=== PATIENT | female | born 1945 | race Caucasian/White ===

== ENCOUNTER 2021-11-18 15:06 | Outpatient (CLI) | payer BC, SELFPAY ==
[2021-11-18 17:49] LABS: Albumin* 4.2 g/dL (3.3-5.0)
[2021-11-18 17:50] LABS: Chloride* 100 mmol/L (96-114); Sodium* 141 mmol/L (135-149)
[2021-11-18 17:52] LABS: Bilirubin Total* 0.6 mg/dL (0.1-1.5); Carbon Dioxide* 33 mmol/L (20-32); Cholesterol* 223 mg/dL (90-199); Creatinine* 0.6 mg/dL (0.5-1.5); Estimated Glomerular Filt Rate 95 ml/min
[2021-11-18 17:53] LABS: Alanine Aminotransferase* 21 U/L (4-35); Alkaline Phosphatase* 96 U/L (40-150); Aspartate Amino Transferase* 35 U/L (12-35); Blood Urea Nitrogen* 11 mg/dL (7-30); Calcium* 9.9 mg/dL (8.4-10.6); Glucose* 118 mg/dL (60-115); HDL Cholesterol* 67 mg/dL (>=50); LDL Cholesterol Calculated 137 mg/dL (<100); Total Protein* 8.1 g/dL (6.0-8.3); Triglycerides* 94 mg/dL (40-149)
== END 2021-11-18 15:07 | disposition home or self-care (01) ==
LOC: NFLDREF 15:07
PROVIDERS: PCP Family Medicine; Visit Provider Family Medicine
DX: Z00.00 Encounter for general adult medical examination without abnormal findings (principal); F10.20 Alcohol dependence, uncomplicated; I10 Essential (primary) hypertension; Z13.6 Encounter for screening for cardiovascular disorders
CPT/HCPCS: 80053; 80061

== ENCOUNTER 2022-01-08 11:39 | Outpatient (CLI) | payer BC, SELFPAY ==
[2022-01-08] MEDS: TETRACAINE 0.5% OPHTH 1 DROP EYE-LEFT ×3 (11:52→12:35)
[2022-01-08] MEDS: BRIMONIDINE TARTRATE 0.2% OPHTH 1 DROP EYE-LEFT ×2 (11:53→12:42)
[2022-01-08 11:55] VITALS: BP 122/67; PULSE 87; RESP 20; O2SAT 97
--- NOTE | 2022-01-08 12:46 | PM.PROC ---
Procedure Note Date Seen: 01/08/22 Will [facility] bill your pro fee for this procedure?: Yes Procedure Description: SURGEON: Aimee Lott MD PREOPERATIVE DIAGNOSIS: Posterior capsular opacity, left eye POSTOPERATIVE DIAGNOSIS: Posterior capsular opacity, left eye PROCEDURE: YAG laser capsulotomy, left eye ANESTHESIA: Topical. ESTIMATED BLOOD LOSS: None PATHOLOGY SPECIMEN: None COMPLICATIONS: None INDICATIONS: See consult note for details. The risks, benefits and alternatives of the procedure were explained to the patient, who elected to proceed and signed informed consent to do so. PROCEDURE: The patient was brought to the pre-holding area where the left eye was identified as the operative eye. I placed my initials above this eye. The patient received 2 sets of 1 drop of 0.5% tetracaine and 1 drop of 1% tropicamide. They also received 1 drop of 0.2% brimonidine. They received 1 drop of 0.5% tetracaine immediately prior to bringing them back for the procedure. The patient was then brought to the procedure room where the left eye was again identified as the operative eye. A YAG Leoncio capsulotomy lens was placed on the eye. The laser was administered using a total number of 13 shots with an energy of 2.4 mJ per shot for a total energy of 31 mJ. The patient tolerated the procedure well. DISPOSITION: The patient was taken back to the pre-holding area and given 1 drop of 0.2% brimonidine in the left eye. They were discharged to home in stable condition. The patient was instructed to call me or go to the emergency department with any sudden change, including dramatic loss of vision, severe pain in the eye or eyebrow region, nausea, or vomiting. The patient was instructed to use the 0.2% brimonidine 1 drop 2 times a day in the left eye for 1 week. The patient will follow up in the clinic in 1-2 weeks Surgeon: Aimee Lott MD
== END 2022-01-08 12:43 | disposition home or self-care (01) ==
LOC: EYE PRC 11:39
PROVIDERS: PCP Family Medicine; Visit Provider Ophthalmology
DX: H26.9 Unspecified cataract (principal)
CPT/HCPCS: 66821; A9270

== ENCOUNTER 2022-01-22 09:00 | Day surgery (SDC) | payer BC, SELFPAY ==
[2022-01-22] MEDS: TETRACAINE 0.5% OPHTH 1 DROP EYE-RIGHT ×2 (09:05→09:10)
[2022-01-22] MEDS: KETOROLAC OPHTH 0.5% 1 DROP EYE-RIGHT ×3 (09:05→09:15)
[2022-01-22 09:11] VITALS: BP 149/71; PULSE 81; RESP 16; TEMP 36.7; O2SAT 98
[2022-01-22 09:18] VITALS: BMI 23.4
[2022-01-22] MEDS: SODIUM CHLORIDE 0.9 % (FLUSH) 10 ML SYRINGE IVF (09:35)
[2022-01-22] MEDS: TETRACAINE 0.5% OPHTH 2 DROP EYE-RIGHT (10:19)
[2022-01-22] MEDS: BALANCED SALT IRRIG SOLN 15 ML EYE-RIGHT (10:23)
--- NOTE | 2022-01-22 10:24 | W.ANESCHARGE ---
Anesthesia Charges Start Date/Time Anesthesia Start Date: 01/22/22 Anesthesia Start Time: 10:16 Stop Date/Time Anesthesia Stop Date: 01/22/22 Anesthesia Stop Time: 10:45 Summary Emergency: No Extremes of Age: Over 72-CPT 91172
--- NOTE | 2022-01-22 10:51 | P.OPTPRC_ITS ---
Procedure Note Date of procedure: 01/22/22 Will [facility] bill your pro fee for this procedure?: Yes Procedure Description: SURGEON: Aimee Lott MD PREOPERATIVE DIAGNOSIS: Nuclear sclerotic cataract, right eye. POSTOPERATIVE DIAGNOSIS: Nuclear sclerotic cataract, right eye. NAME OF OPERATION: Phacoemulsification of cataract with posterior chamber intraocular lens implantation in the right eye. ANESTHESIA: Topical. ESTIMATED BLOOD LOSS: Less than 2 cc. COMPLICATIONS: None. PATHOLOGY SPECIMEN: None. INDICATIONS: See consult note for details. The risks, benefits and alternatives of the procedure were explained to the patient, who elected to proceed and s igned informed consent to do so. PROCEDURE: The patient was brought to the pre-holding area where the right eye was identified as the operative eye. I placed my initials above this eye. The patient received eye drops consisting of 0.5% tetracaine, 1% tropicamide, 10% phenylephrine, and 0.5% ketorolac. The patient was then brought to the operating room where the right eye was again identified as the operative eye. The eye was prepped with Betadine and draped in the usual sterile ophthalmic fashion. A #15 super-sharp blade was used to create a paracentesis site. 1% non-preserved intracameral lidocaine was injected into the anterior chamber. Endocoat was injected into the anterior chamber. A 2.4 mm keratome was used to create a three-plane self-sealing incision 1 mm anterior to the temporal limbus. A cystotome was used to create an anterior capsular leaflet. The Utrata forceps were used to extend this to form a continuous curvilinear capsulorrhexis. Hydrodissection was performed. The cataract was removed with phacoemulsification using the [id number] technique. The irrigation and aspiration tip was used to remove the remaining cortex. Healon was injected into the capsular bag. An SERGIO ZCB00 intraocular lens of 20.5 diopters was injected into the capsular bag. The irrigation and aspiration tip was used to remove the remaining viscoelastic. Balanced salt solution on a cannula was used to hydrate the wound, and the wound was found to be watertight. The pupil was noted to be round. DISPOSITION: The patient was taken to the recovery room and discharged to home in stable condition. The patient was instructed to call me or go to the emergency department with any sudden change, including dramatic loss of vision, severe pain in the eye or eyebrow region, nausea, or vomiting. The patient will follow up in the clinic tomorrow morning. Surgeon: Aimee Lott MD
[2022-01-22 10:57] VITALS: BP 166/76; PULSE 72; RESP 16; TEMP 37.3; O2SAT 97
--- NOTE | 2022-01-22 11:02 | W.ANESCHARGE ---
Anesthesia Charges Start Date/Time Anesthesia Start Date: 01/22/22 Anesthesia Start Time: 10:16 Stop Date/Time Anesthesia Stop Date: 01/22/22 Anesthesia Stop Time: 10:45 Summary Emergency: No Extremes of Age: Over 72-CPT 06610
== END 2022-01-22 11:16 | disposition home or self-care (01) ==
PROVIDERS: PCP Family Medicine; Visit Provider Ophthalmology
PROC: (CPT 66984; principal; 2022-01-22 09:00)
DX: H25.11 Age-related nuclear cataract, right eye (principal)
CPT/HCPCS: 66984; 00142; 99100; A9270; J2250; J3010; V2632

== ENCOUNTER 2022-01-27 14:38 | Outpatient (CLI) | payer BC, SELFPAY ==
--- NOTE | 2022-01-27 15:00 | CRLHL7_ITS ---
For Patients: As a result of the Century Cures Act, medical imaging exams and procedure reports are released immediately into your electronic medical record. You may view this report before your referring provider. If you have questions, please contact your health care provider. CLINICAL HISTORY: left carotid bruit TECHNIQUE: The carotid circulations and the vertebral arteries in the neck were examined with dotson-scale ultrasound, color-flow and Doppler spectral analysis. Degrees of stenosis were determined using SRU 2002 Consensus Panel Criteria. FINDINGS: Sonographic images demonstrate bilateral atherosclerotic plaque formation without suspicious soft tissue mass. There was antegrade blood flow demonstrated within the vertebral arteries and the subclavian arteries demonstrated a normal triphasic waveform. The spectral Doppler tracings of the common carotid, internal and external carotid arteries demonstrate no abnormal turbulence or spectral broadening. There was elevation of peak systolic blood flow which would indicate a hemodynamically-significant stenosis by SRU criteria within the proximal left ICA measuring 155 cm/second and within the mid right ICA measuring 128 cm/second. The ICA/CCA peak systolic velocity ratio measures 1.6 on the right and 3.1 on the left. IMPRESSION: 50-69 percent stenosis of the proximal left ICA. Slightly elevated velocity of the right mid ICA corresponding to a 50-69 percent stenosis, closer to 50 percent stenosis. Dictated by Holger Groves MD @ 01/28/2022 11:28:51 AM (Electronically Signed)
== END 2022-01-27 14:39 | disposition home or self-care (01) ==
PROVIDERS: PCP Family Medicine; Visit Provider Family Medicine
DX: R09.89 Other specified symptoms and signs involving the circulatory and respiratory systems (principal); G45.9 Transient cerebral ischemic attack, unspecified
CPT/HCPCS: 93880

== ENCOUNTER 2022-05-09 18:21 | Outpatient (CLI) | payer BC, SELFPAY | END 2022-05-09 18:22 | disposition home or self-care (01) | LOC: AMB 05-10 03:47 | PROVIDERS: PCP Family Medicine; Visit Provider Emergency Medicine Emergency Medical Services | DX: S29.9XXA Unspecified injury of thorax, initial encounter (principal); W01.190A Fall on same level from slipping, tripping and stumbling with subsequent striking against furniture, initial encounter; Y92.038 Other place in apartment as the place of occurrence of the external cause | CPT/HCPCS: A0425; A0427 ==

== ENCOUNTER 2022-05-09 18:59 | Emergency (ER) | payer BC, SELFPAY ==
[2022-05-09] VITALS (9 sets, daily range): BP systolic 115–136; BP diastolic 62–73; PULSE 86–109; RESP 18; TEMP 36.3; O2SAT 91–95; BMI 24.4
--- NOTE | 2022-05-09 20:05 | CRLHL7_ITS ---
For Patients: As a result of the Cures Act, medical imaging exams and procedure reports are released immediately into your electronic medical record. You may view this report before your referring provider. If you have questions, please contact your health care provider. INDICATION: Injury and pain. TECHNIQUE: Chest and right ribs 3 views. COMPARISON: None. FINDINGS: Cardiovascular and mediastinum: Heart size and vasculature are normal in caliber and appearance. Mediastinum is within normal limits. Possible mild deviation of the mediastinum toward the left. Lungs and pleural spaces: Moderate to large right-sided pneumothorax. Bones and soft tissues: Multiple right lateral rib fractures identified. Significant right chest wall emphysema. IMPRESSION: Moderate to large right-sided pneumothorax. Multiple right sided rib fractures (at least 3 in succession), concerning for flail chest. Significant chest wall emphysema. Findings discussed with Dr. Marcos at 8:45 pm on 05/09/[address] Osborn. Dictated by Hi Osborn MD @ 05/09/2022 8:46:25 PM (Electronically Signed)
--- NOTE | 2022-05-09 20:05 | ED_ITS ---
HPI - Fall General Chief Complaint: Fall/Minor Trauma Stated Complaint: Fall, Rib pain Time Seen by Provider: 05/09/22 19:32 History of Present Illness HPI Narrative: This patient comes in with an injury to her right anterior lower ribs that occurred just prior to arrival. She states that she fell into the edge of a table. She did not hit her head or have loss of consciousness. She does smell of alcohol and takes vodka daily. She does not report any other injury. She does not report shortness of breath and arrives with normal vital signs except for her pulse is slightly increased at 105 beats per minute. Related Data Home Medications Medication Instructions Recorded Confirmed hydrocortisone 0.5 % topical cream 0.5 applic topical PRN 11/18/21 05/08/22 acetaminophen 500 mg tablet 500 mg PO BID PRN 01/20/22 05/08/22 (Tylenol Extra Strength) ketorolac 0.5 % eye drops 1 drp ophthalmic (eye) QID 01/20/22 05/08/22 ofloxacin 0.3 % eye drops 1 drp ophthalmic (eye) QID 01/20/22 05/08/22 prednisolone acetate 1 % eye 1 drp ophthalmic (eye) 01/20/22 05/08/22 drops,suspension amlodipine 2.5 mg tablet 5 mg PO QDAY 01/21/22 05/08/22 Previous Rx's Medication Instructions Recorded atenolol 100 mg tablet 100 mg PO QDAY #90 tabs 11/18/21 cholecalciferol (vitamin D3) 25 25 mcg PO QDAY #90 caps 11/18/21 mcg (1,000 unit) capsule clobetasol 0.05 % topical cream 1 applic topical BID #30 grams 11/18/21 diazepam 5 mg tablet 2.5 mg PO QDAY PRN anxiety #10 tabs 11/18/21 folic acid 1 mg tablet 1 mg PO QDAY #90 tabs 11/18/21 omeprazole 20 mg capsule,delayed 20 mg PO QDAY #90 caps 11/18/21 release psyllium husk 3.4 gram/5.4 gram 1 tbsp PO QDAY #660 grams 11/18/21 oral powder (Metamucil) thiamine HCl (vitamin B1) 100 mg 100 mg PO QDAY #90 tabs 11/18/21 tablet Allergies Allergy/AdvReac Type Severity Reaction Status Date / Time lisinopril Allergy Mild Cough Verified 05/08/22 15:27 Review of Systems Status of ROS: Reports: 10 or more systems reviewed and unremarkable except as noted in History and below Narrative: Constitutional: No fevers, no weight gain or loss. Eyes: No discharge. No vision changes. HENT: No congestion, no sore throat, no ear pain. Cardiovascular: No palpitations. Chest: Distinct pain in the right lateral lower ribs that is reproduced with movement and with deep breathing. Respiratory: No shortness of breath, no wheezes, no cough. Gastrointestinal: No abdominal pain, no vomiting, no diarrhea. Genitourinary: No dysuria, no hematuria. Musculoskeletal: Normal range of motion. Skin: No rashes, no pruritis. Neurological: No dizziness, weakness, sensory change, speech change. Endo/Heme/Allergies: No bruising or bleeding. No polydipsia. Pysch: no suicidality, no anxiety, no insomnia. All other systems reviewed and are negative. [facility] Medical History (Updated 05/09/22 @ 21:52 by Huan Marcos MD) Abdominal pain Alcoholism Anxiety Balance problems Constipation Depression Diverticulitis of intestine Do not resuscitate status GERD (gastroesophageal reflux disease) Hypertension Laceration of finger Left carotid bruit Psoriasis Speech disturbance Tobacco dependence syndrome Surgical History (Updated 05/09/22 @ 22:04 by Aurelia Dinh MD) H/O foot surgery Social History (Updated 10/29/21 @ 16:05 by Sherif Orosco MD) Narrative: SOCIAL HISTORY: Single and retired. She has a daughter and granddaughter in town. She sees them sporadically but kept did distance due to the current COVID-19 pandemic. HABITS: Not sexually active. No regular exercise.She smokes 6 cigarettes per day. Alcohol use is the same as before about 7 shots of vodka per day. This is stable over many years. No recreational drug use. Smoking Status: Current every day smoker What tobacco products do you use: cigarettes Smoking packs per day: 1 Smoking cigarettes per day: 20.0 Do you use any of these nicotine containing products: None Second hand tobacco smoke exposure: No How often do you have a drink containing alcohol: 4 or more times a week Alcohol type: hard liquor How many standard drinks containing alcohol do you have on a typical day: 3 or 4 How often do you have six or more drinks on one occasion: Never AUDIT-C Alcohol total score: 5 Non-prescribed substance use: denies use Caffeine: Yes (soda daily) Little interest or pleasure in doing things: more than half the days Feeling down, depressed, or hopeless: more than half the days Are you using contraception or practicing any form of control: No Exam Narrative: Exam Narrative: Constitutional: Well-developed, well-nourished, no acute distress. HEENT: Normocephalic, atraumatic. Neck: Normal range of motion. Nontender. Supple. Heart: Regular. No murmurs. Normal rate. Intact distal pulses. Lungs: Clear to auscultation. No wheezes, rhonchi, or rales. No sign of injury in the external chest wall. She has distinct pain when taking a deep breath or palpating along the right lateral lower ribs. Abdomen: Normal bowel sounds. Nontender. No rebound tenderness. Genitalia: Deferred. Back: No midline tenderness. Normal range of motion. Extremities: Normal range of motion. No injury. Skin: Intact. No rash. Warm. No erythema or pallor. Neurologic: No altered sensation. No weakness. Alert and oriented. Psychiatric: No suicidality. No anxiety or depression. No insomnia. Nursing notes and vitals signs are reviewed. Const: Vital Signs, click to edit/add: Vital Signs - 24 hr 05/09/22 19:05 05/09/22 19:30 05/09/22 20:00 Temperature 97.3 F L Pulse Rate [Right Pulse Oximeter] 105 H 98 101 H Respiratory Rate 18 Blood Pressure [Ri ght Upper Arm] 131/70 117/69 136/71 Pulse Oximetry 91 91 92 Oxygen Delivery Me thod Nasal Cannula Nasal Cannula Nasal Cannula Oxygen Flow Rate 1 1 1 05/09/22 20:30 05/09/22 20:45 05/09/22 20:55 Temperature Pulse Rate [Right Pulse Oximeter] 102 H 95 Respiratory Rate Blood Pressure [Ri ght Upper Arm] 135/73 Pulse Oximetry 92 92 Oxygen Delivery Me thod Nasal Cannula Nasal Cannula Oxygen Flow Rate 1 1 05/09/22 21:46 05/09/22 21:55 Temperature Pulse Rate [Right Pulse Oximeter] 109 H 86 Respiratory Rate Blood Pressure [Ri ght Upper Arm] 115/62 Pulse Oximetry 95 93 Oxygen Delivery Me thod Nasal Cannula Nasal Cannula Oxygen Flow Rate 1 2 Course Vital Signs Vital signs: Initial Vital Signs Temperature 97.3 F L 05/09/22 19:05 Temperature Source Temporal Artery Scan 05/09/22 19:05 Pulse Rate 105 H 05/09/22 19:05 Pulse Rhythm 05/09/22 19:05 Respiratory Rate 18 05/09/22 19:05 Blood Pressure 131/70 05/09/22 19:05 Blood Pressure Mean 90 05/09/22 19:05 Blood Pressure Position Sitting 05/09/22 19:05 Pulse Oximetry 91 05/09/22 19:05 Oxygen Delivery Method 05/09/22 19:05 Oxygen Flow Rate 1 05/09/22 19:05 Vital Signs Temperature 97.3 F L 05/09/22 19:05 Pulse Rate 105 H 05/09/22 19:05 Respiratory Rate 18 05/09/22 19:05 Blood Pressure 131/70 05/09/22 19:05 Pulse Oximetry 91 05/09/22 19:05 Oxygen Delivery Method 05/09/22 19:05 Oxygen Flow Rate 1 05/09/22 19:05 Temperature 97.3 F L 05/09/22 19:05 Pulse Rate 86 05/09/22 21:55 Respiratory Rate 18 05/09/22 19:05 Blood Pressure 115/62 05/09/22 21:55 Pulse Oximetry 93 05/09/22 21:55 Oxygen Delivery Method 05/09/22 21:55 Oxygen Flow Rate 2 05/09/22 21:55 MDM - Fall MDM Narrative Medical decision making narrative: This patient comes in with injury to her right lateral ribs. Chest x-ray shows moderate to large pneumothorax with a large amount of subcutaneous air. She has at least 3 rib fractures and may possibly have a flail chest. She is maintaining normal vital signs. She is DNR DNI. I did contact the surgeon on- call, Dr. Dinh, who was kind to come in and place a chest tube as the ER is very busy. Arrangements are made for transfer to [facility] for further management. Dr. George is the accepting physician there. Lab Data Labs: Lab Results 05/09/22 05/09/22 Range/Units 21:25 21:25 WBC 9.36 (4.50-11.00) K/uL RBC 4.14 (4.00-5.20) m/uL Hgb 13.8 (12.0-16.0) gm/dL Hct 39.9 (33.0-51.0) % MCV 96 (80-100) fL MCH 33 (26-34) pg MCHC 35 (32-36) gm/dL RDW Coeff of Santos 14.0 (11.5-15.5) % Plt Count 360 (140-440) K/uL Neut % (Auto) 80.8 H (42.0-72.0) % Lymph % (Auto) 8.7 L (20-44) % Mcdowell % (Auto) 10.0 (0.0-11.0) % Eos % (Auto) 0.2 (0.0-7.0) % Baso % (Auto) 0.2 (0.0-3.0) % Neut # (Auto) 7.60 H (1.7-7.0) K/uL Lymph # (Auto) 0.80 L (0.90-2.90) K/uL Mcdowell # (Auto) 0.90 (0.00-0.90) K/UL Eos # (Auto) 0.02 (0.00-0.50) K/uL Baso # (Auto) 0.02 (0.00-0.30) K/uL Sodium 135 (135-149) mmol/L Potassium 2.8 L* (3.6-5.1) mmol/L Chloride 99 (96-114) mmol/L Carbon Dioxide 23 (20-32) mmol/L BUN 8 (7-30) mg/dL Creatinine 0.6 (0.5-1.5) mg/dL Estimated Creat Clear 35.45 Estimated GFR 94 ml/min Glucose 120 H (60-115) mg/dL Calcium 9.1 (8.4-10.6) mg/dL Ethyl Alcohol 0.07 H (0.01-0.03) % Discharge Plan Discharge Clinical Impression: Fracture, ribs, Pneumothorax, Closed flail chest Patient Disposition: Xfer Other Condition: Stable Prescriptions: No Action hydrocortisone 0.5 % cream 0.5 applic topical PRN Rx Instructions: Apply Twice Daily as needed for psoriasis atenolol 100 mg tablet 100 mg PO QDAY Qty: 90 3RF folic acid 1 mg tablet 1 mg PO QDAY Qty: 90 3RF omeprazole 20 mg capsule,delayed release(DR/EC) 20 mg PO QDAY Qty: 90 3RF Metamucil 3.4 gram/5.4 gram powder 1 tbsp PO QDAY Qty: 660 11RF Rx Instructions: mix into at least 8 oz of water or juice before administering thiamine HCl (vitamin B1) 100 mg tablet 100 mg PO QDAY Qty: 90 3RF diazepam 5 mg tablet 2.5 mg PO QDAY PRN (Reason: anxiety) Qty: 10 0RF cholecalciferol (vitamin D3) 25 mcg (1,000 unit) capsule 25 mcg PO QDAY Qty: 90 3RF clobetasol 0.05 % cream 1 applic topical BID Qty: 30 4RF prednisolone acetate 1 % drops,suspension 1 drp ophthalmic (eye) ketorolac 0.5 % drops 1 drp ophthalmic (eye) QID Label Comments: INSTILL 1 DROP TO OPERATIVE EYE 4 TIMES A DAY STARTING AFTER SURGERY ofloxacin 0.3 % drops 1 drp ophthalmic (eye) QID Label Comments: INSTILL 1 DROP TO OPERATIVE EYE 4 TIMES A DAY STARTING THURSDAY BEFORE SURGERY acetaminophen [Tylenol Extra Strength] 500 mg tablet 500 mg PO BID PRN amlodipine 2.5 mg tablet 5 mg PO QDAY Stand Alone Forms: [facility]
[2022-05-09] MEDS: fentaNYL 100 MCG/2 ML inj 25 MCG IVP ×2 (21:10→22:39)
[2022-05-09] MEDS: fentaNYL 100 MCG/2 ML inj 50 MCG IVP (21:20)
[2022-05-09 21:31] LABS: Basophils Absolute Auto 0.02 K/uL (0.00-0.30); Basophils Percent Auto 0.2 % (0.0-3.0); Eosinophils Absolute Auto 0.02 K/uL (0.00-0.50); Eosinophils Percent Auto 0.2 % (0.0-7.0); Hematocrit 39.9 % (33.0-51.0); Hemoglobin* 13.8 gm/dL (12.0-16.0); Immature Granulocytes Abs Auto 0.01 K/uL (0.00-0.30); Immature Granulocytes Pct Auto 0.1 %; Lymphocytes Percent Auto 8.7 % (20-44); Mean Corpuscular HGB Conc 35 gm/dL (32-36); Mean Corpuscular Hemoglobin 33 pg (26-34); Mean Corpuscular Volume 96 fL (80-100); Neutrophils Percent Auto 80.8 % (42.0-72.0); Platelet Count* 360 K/uL (140-440); Red Blood Count 4.14 m/uL (4.00-5.20); White Blood Count* 9.36 K/uL (4.50-11.00)
[2022-05-09 21:32] LABS: Slide Review Reflex No
[2022-05-09 21:51] LABS: Chloride* 99 mmol/L (96-114); Sodium* 135 mmol/L (135-149)
[2022-05-09 21:53] LABS: Creatinine* 0.6 mg/dL (0.5-1.5); Est. Creatinine Clearance* 35.45; Estimated Glomerular Filt Rate 94 ml/min
[2022-05-09 21:54] LABS: Blood Urea Nitrogen* 8 mg/dL (7-30); Carbon Dioxide* 23 mmol/L (20-32); Ethanol* 0.07 % (0.01-0.03); Glucose* 120 mg/dL (60-115)
[2022-05-09 21:55] LABS: Calcium* 9.1 mg/dL (8.4-10.6)
--- NOTE | 2022-05-09 21:55 | CRLHL7_ITS ---
For Patients: As a result of the Century Cures Act, medical imaging exams and procedure reports are released immediately into your electronic medical record. You may view this report before your referring provider. If you have questions, please contact your health care provider. HISTORY: Status post chest tube placement. COMPARISON: Chest and right ribs from today at 2016 hours FINDINGS: A portable erect AP view of the chest was obtained at 21 59 hours. During the interval, a large caliber right chest tube has been placed. The previously seen large right pneumothorax has decreased in size and is now approximately 10 percent. There continues to be severe right subcutaneous emphysema extending to the base of the neck. There is clearing of the moderate linear atelectasis of the right lung base, with mild residual atelectasis. The left lung remains clear. The heart remains normal in size. The mediastinum is normal in appearance. The multiple right lateral inferior rib fractures are again seen. IMPRESSION: Prominent increase in size of right pneumothorax following placement of right chest tube, now approximately 10 percent. Stable severe right subcutaneous emphysema. Clearing of linear atelectasis of the right lung base. Dictated by Alexis Cerda MD @ 05/09/2022 10:45:47 PM (Electronically Signed)
[2022-05-09 22:00] LABS: Potassium* 2.8 mmol/L (3.6-5.1)
--- NOTE | 2022-05-09 22:00 | ED.NURSE ---
Chest tube placed by Dr Dinh. Pt tolerated procedure. Post Xray done to check placement.
--- NOTE | 2022-05-09 22:02 | PM.GSCN ---
History of Present Illness Consult details Date Seen: 05/09/22 Consult date: 05/09/22 Narrative: 76-year-old female was intoxicated and fell at home on a corner of a table. She fell on the right chest. She developed pain right away and was brought to the emergency room. In the emergency room she was found to have several rib fractures on the right and a large right pneumothorax with significant subcutaneous emphysema. Patient was having shortness of breath and shoulder pain on the right. Review of Systems Narrative: General: no fevers HENT: no problems swallowing CV: n+shortness of breath Resp: no cough GI: No nausea, vomiting, abdominal pain PFSH PFSH Medical History (Updated 05/09/22 @ 21:52 by Huan Marcos MD) Abdominal pain Alcoholism Anxiety Balance problems Constipation Depression Diverticulitis of intestine Do not resuscitate status GERD (gastroesophageal reflux disease) Hypertension Laceration of finger Left carotid bruit Psoriasis Speech disturbance Tobacco dependence syndrome Surgical History (Updated 05/09/22 @ 22:04 by Aurelia Dinh MD) H/O foot surgery Social History (Updated 10/29/21 @ 16:05 by Sherif Orosco MD) Narrative: SOCIAL HISTORY: Single and retired. She has a daughter and granddaughter in town. She sees them sporadically but kept did distance due to the current COVID-19 pandemic. HABITS: Not sexually active. No regular exercise.She smokes 6 cigarettes per day. Alcohol use is the same as before about 7 shots of vodka per day. This is stable over many years. No recreational drug use. Smoking Status: Current every day smoker What tobacco products do you use: cigarettes Smoking packs per day: 1 Smoking cigarettes per day: 20.0 Do you use any of these nicotine containing products: None Second hand tobacco smoke exposure: No How often do you have a drink containing alcohol: 4 or more times a week Alcohol type: hard liquor How many standard drinks containing alcohol do you have on a typical day: 3 or 4 How often do you have six or more drinks on one occasion: Never AUDIT-C Alcohol total score: 5 Non-prescribed substance use: denies use Caffeine: Yes (soda daily) Little interest or pleasure in doing things: more than half the days Feeling down, depressed, or hopeless: more than half the days Are you using contraception or practicing any form of control: No Meds Home Medications and Allergies Home Medications Medication Instructions Recorded Confirmed Type hydrocortisone 0.5 % topical cream 0.5 applic topical PRN 11/18/21 05/08/22 History acetaminophen 500 mg tablet 500 mg PO BID PRN 01/20/22 05/08/22 History (Tylenol Extra Strength) ketorolac 0.5 % eye drops 1 drp ophthalmic (eye) QID 01/20/22 05/08/22 History ofloxacin 0.3 % eye drops 1 drp ophthalmic (eye) QID 01/20/22 05/08/22 History prednisolone acetate 1 % eye 1 drp ophthalmic (eye) 01/20/22 05/08/22 History drops,suspension amlodipine 2.5 mg tablet 5 mg PO QDAY 01/21/22 05/08/22 History Allergies Allergy/AdvReac Type Severity Reaction Status Date / Time lisinopril Allergy Mild Cough Verified 05/08/22 15:27 Exam Narrative: Exam Narrative: General appearance: Alert, cooperative, and in no distress, speech is slightly slurred Pulmonary: Right chest ecchymosis with tenderness to palpation. Decreased breath sounds on the right. Cardiovascular Heart: Regular rate and rhythm, S1, S2, no murmurs/rubs/gallops Gastrointestinal Abdominal: not distended Psychiatric: Alert, cooperative, normal affect. Const: Vital Signs, click to edit/add: Vital Signs - 24 hr 05/09/22 19:05 05/09/22 19:30 05/09/22 20:00 Temperature 97.3 F L Pulse Rate [Right Pulse Oximeter] 105 H 98 101 H Respiratory Rate 18 Blood Pressure [Ri ght Upper Arm] 131/70 117/69 136/71 Pulse Oximetry 91 91 92 Oxygen Delivery Me thod Nasal Cannula Nasal Cannula Nasal Cannula Oxygen Flow Rate 1 1 1 05/09/22 20:30 05/09/22 20:45 05/09/22 20:55 Temperature Pulse Rate [Right Pulse Oximeter] 102 H 95 Respiratory Rate Blood Pressure [Ri ght Upper Arm] 135/73 Pulse Oximetry 92 92 Oxygen Delivery Me thod Nasal Cannula Nasal Cannula Oxygen Flow Rate 1 1 05/09/22 21:46 Temperature Pulse Rate [Right Pulse Oximeter] 109 H Respiratory Rate Blood Pressure [Ri ght Upper Arm] Pulse Oximetry 95 Oxygen Delivery Me thod Nasal Cannula Oxygen Flow Rate 1 Results Labs Labs: Abnormal lab results 05/09/22 05/09/22 Range/Units 21:25 21:25 Neut % (Auto) 80.8 H (42.0-72.0) % Lymph % (Auto) 8.7 L (20-44) % Neut # (Auto) 7.60 H (1.7-7.0) K/uL Lymph # (Auto) 0.80 L (0.90-2.90) K/uL Potassium 2.8 L* (3.6-5.1) mmol/L Glucose 120 H (60-115) mg/dL Ethyl Alcohol 0.07 H (0.01-0.03) % Diabetes panel 05/09/22 Range/Units 21:25 Sodium 135 (135-149) mmol/L Potassium 2.8 L* (3.6-5.1) mmol/L Chloride 99 (96-114) mmol/L Carbon Dioxide 23 (20-32) mmol/L BUN 8 (7-30) mg/dL Creatinine 0.6 (0.5-1.5) mg/dL Glucose 120 H (60-115) mg/dL Calcium 9.1 (8.4-10.6) mg/dL Calcium panel 05/09/22 Range/Units 21:25 Calcium 9.1 (8.4-10.6) mg/dL Pituitary panel 05/09/22 Range/Units 21:25 Sodium 135 (135-149) mmol/L Potassium 2.8 L* (3.6-5.1) mmol/L Chloride 99 (96-114) mmol/L Carbon Dioxide 23 (20-32) mmol/L BUN 8 (7-30) mg/dL Creatinine 0.6 (0.5-1.5) mg/dL Glucose 120 H (60-115) mg/dL Calcium 9.1 (8.4-10.6) mg/dL Adrenal panel 05/09/22 Range/Units 21:25 Sodium 135 (135-149) mmol/L Potassium 2.8 L* (3.6-5.1) mmol/L Chloride 99 (96-114) mmol/L Carbon Dioxide 23 (20-32) mmol/L BUN 8 (7-30) mg/dL Creatinine 0.6 (0.5-1.5) mg/dL Glucose 120 H (60-115) mg/dL Calcium 9.1 (8.4-10.6) mg/dL All other labs normal. Imaging Chest x-ray: report reviewed and image reviewed Assessment and Plan Assessment and plan (1) Pneumothorax: Status: Acute (2) Fracture, ribs: Status: Acute Plan 76-year-old female s/p fall on the right side of her chest while intoxicated presents with multiple right-sided rib fractures concerning for flail chest and a right pneumothorax s/p right thoracostomy tube placement. Patient shortness of breath has improved after chest tube placement. She does complain of some chest pain on the right side. Postprocedure x-ray shows that the chest tube is in the fissure. Patient will be transported to the trauma center for further management of her flail chest. General Surgery Procedures Chest Tube Chest Tube 1: Chest tube location: Mid-Axillary Chest Size of tube: 28 Procedure: placement Preperation: Yes sterile drapes applied and other Tube sutured to skin: Yes Sterile dressing applied: Yes Anesthesia: 1% Lidocaine w/ Epi Volume anesthetic (ml): 3 Incision made with: #11 blade Post procedure: sutured to skin and sterile dressing applied Diaz of air heard: Yes Tube Drainage: none Post procedure CXR?: Yes Patient tolerated procedure: Yes Progress: The chest tube was placed and post procedure chest x-ray showed the chest tube is in the fissure.
[2022-05-09 23:00] LABS: SARS PCR* Negative SARS-CoV-2 (Negative)
== END 2022-05-09 22:40 | disposition other institution (70) ==
PROVIDERS: Emergency Provider Emergency Medicine Emergency Medical Services; PCP Family Medicine
DX: J93.9 Pneumothorax, unspecified (principal); S22.5XXA Flail chest, initial encounter for closed fracture; W08.XXXA Fall from other furniture, initial encounter; S22.41XA Multiple fractures of ribs, right side, initial encounter for closed fracture
CPT/HCPCS: 32551; 36415; 71045; 71101; 80048; 82077; 85025; 87635; 99285; 99291; J3010

== ENCOUNTER 2022-05-09 22:09 | Outpatient (CLI) | payer BC, SELFPAY | END 2022-05-09 22:10 | disposition home or self-care (01) | LOC: AMB 05-10 04:36 | PROVIDERS: PCP Family Medicine; Visit Provider Emergency Medicine Emergency Medical Services | DX: J93.9 Pneumothorax, unspecified (principal); S22.39XS Fracture of one rib, unspecified side, sequela | CPT/HCPCS: A0425; A0433 ==

== ENCOUNTER 2022-11-10 12:52 | Outpatient (CLI) | payer BC, SELFPAY ==
--- NOTE | 2022-11-10 13:00 | CRLHL7_ITS ---
For Patients: As a result of the Century Cures Act, medical imaging exams and procedure reports are released immediately into your electronic medical record. You may view this report before your referring provider. If you have questions, please contact your health care provider. INDICATION: Ataxia. TECHNIQUE: Multiplanar multisequence MR imaging acquired through the brain prior to and following intravenous contrast. COMPARISON: MRI brain 08/14/2017. FINDINGS: Prominence of the ventricles and sulci compatible with dfsd-hb-cehzsavt diffuse cerebral volume loss the, similar to the prior exam. Mild cerebellar volume loss. No mass effect or midline shift. Few punctate FLAIR hyperintensities in the supratentorial white matter have slightly progressed, and are typical for minimal chronic microvascular ischemic changes. No intracranial hemorrhage or pathologic extra-axial fluid collection. No diffusion restriction to suggest acute infarction. No pathologic intracranial enhancement. Absence of the left internal carotid flow artery flow void is new. Thinning of the ocular lenses. Mild paranasal sinus mucosal thickening. Moderate right and trace left mastoid effusions. IMPRESSION: 1. No acute intracranial abnormality. 2. Minimal chronic microvascular changes have slightly progressed compared to the prior exam. 3. Absence of the left internal carotid artery flow void is new, and may be secondary to high-grade stenosis or occlusion. CTA or MRA of the head and neck is offered for further evaluation. 4. Qind-np-idbsbbms diffuse cerebral volume loss. Mild cerebellar atrophy. 5. Moderate right mastoid effusion. Dictated by Rupesh Bojorquez MD @ 11/11/2022 9:46:44 PM (Electronically Signed)
== END 2022-11-10 12:53 | disposition home or self-care (01) ==
PROVIDERS: PCP Family Medicine; Referring Provider Psychiatry & Neurology Neurology; Visit Provider Family Medicine
DX: R27.0 Ataxia, unspecified (principal); I67.82 Cerebral ischemia; G31.9 Degenerative disease of nervous system, unspecified; R47.9 Unspecified speech disturbances; F10.20 Alcohol dependence, uncomplicated; I65.22 Occlusion and stenosis of left carotid artery
CPT/HCPCS: 70553; A9575

== ENCOUNTER 2022-11-14 13:00 | Outpatient (RCR) | payer BC, SELFPAY ==
--- NOTE | 2022-07-22 16:32 | PT.OPEX ---
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 SHE STATES, I JUST NEED BETTER BALANCE AND I WOULD BE OKAY. Pain Comments 0-07/21 Date of Last Physician Visit 06/26/22 Current Work Status Retired Occupation RETIRED Preferred Name [employer] Precautions Therapy Limitations/Systems Review Communication Ability Objective Other/Pertinent Objective POSTURE ASSESSMENT: FWD HEAD / TRUNK POSTURING WITH WBOS UPPER QUARTER SCREEN: CERVICAL ROM: WFL BUE MMT: 4-/5 BUE ROM: WFL WITH STIFFNESS LAST 30 DEGREES BICEPS REFLEX: 2+ TRICEPS 2+ BRACHIORADIALIS 2+ FINGER TO NOSE : UNABLE W/EYES CLOSED DIFFICULT WITH EYES OPEN LOWER QUARTER SCREEN: BLE 4-/5 BLE ROM: WFL REFLEX: PATELLAR TENDON 1+, ACHILLES 1+ HEEL UP / DOWN OPPOSITE OLSON : UNABLE Functional Test Performed & Score TUG: UNABLE W/O CGA TINETTI: 12/08 Assessment Assessment/Impression PATIENT IS A [address] 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 PMHX INCLUDES ATAXIA AND DYSARTHRIA X 3-4 YRS (PER PATIENT), RECENT FALL INCURING LUNG PNEUMOTHORAX AND FLAIL CHEST/RIB FX, ETOH ABUSE, ANXIETY, H/O RIGHT ORIF LOWER LEG ~6YRS AGO. PATIENT LIVES ALONE IN A SECOND STORY APARTMENT WITH RAILING TO USE FOR >10 STEPS. SHE HAS A SHOWER/TUB AND 2 GRAB BARS FOR SHOWER. HER DTR DRIVES HER TO HER APPTS AND DOES HER GROCERY SHOPPING. SHE DOES NOT HAVE A NEUROLOGICAL DX BUT AMB WITH AN ATAXIC WIDE GAIT ALONG WITH FWD TRUNK POSTURING USING HIGH AND WIDE ROLLATOR. SHE STRUGGLES WITH ARTICULATION BUT NO SIGNIFICANT ISSUES NOTED WITH WORD CHOICE OR IMMEDIATE MEMORY. SHE DOES NOT RECALL HOW SHE FELL BUT RECORDS SHOW SHE WAS INTOXICATED. SHE TOLERATED THE COMPREHENSIVE EXAMINATION AND EAGER TO IMPROVE HER CURRENT FUNCTIONAL STATUS. WE BEGAN WITH A GENERALIZED APPROACH PROVIDED SEATED BLE STRENGTHENING COMBINED WITH AROM OF THE SHOULDERS. SHE PERFORMED EA AND REMARKED THAT SHE HAD SOME EXERCISES SIMILAR AT HOME. I INSTRUCTED HER TO BRING THE SHEET TO INCORPORATE WHAT SHE IS ALREADY PERFORMING OR, IT AT LEAST, FAMILIAR WITH. SHE IS A HIGH FALL RISK EVIDENCED BY A SCORE OF 8/28 ON THE TINETTI BALANCE AND MOBILITY EXAM AND UNABLE TO PERFORM THE TUG D/T ASSISTANCE NEEDED FOR BOTH STS AND AMB D /T UNSTEADINESS. SHE REQUIRES CGA>MIN A FOR ALL MOBILITY FOR SAFETY. HER PATIENT CENTERED GOAL IS,I JUST WANT TO BE ABLE TO TAKE CARE OF MYSELF AND KEEP LIVING BY MYSELF. SHE IS APPROPRIATE FOR SKILLED PHYSICAL THERAPY TO ADDRESS HER OVERALL STRENGTH, BALANCE, AND CARDIOVASCULAR ENDURANCE TRAINING IN ORDER TO MANAGE LIMITED COMMUNITY DISTANCES WITH FAMILY OR PEERS. Primary Functional Limitations GAIT TRANSFERS REACHING [employer] Plan of Care Rehabilitation Potential Fair Rehabilitation Potential Comments PATIENT HAS LONG STANDING ETOH ABUSE AND LIKELY HAS NEUROLOGICAL CHANGES ASSOCIATED WITH THIS DISORDER. Physical Therapy Goals ST. PATIENT WILL BE ABLE TO AMB 500FT WITH ROLLATOR AND SBA FOR LIMITED COMMUNITY AMB WITH HER FAMILY IN 6 WEEKS 2. PATIENT WILL BE SBA WITH > 10 STEPS TO HER APARTMENT USING RAILING AND SPC IN 6 WEEKS 3. PATIENT WILL BE MOD I WITH HER HEP IN 6 WEEKS. LT. PATIENT WILL BE ABLE TO AMB 1000FT WITH ROLLATOR AND MOD I TO PARTICIPATE IN GROCERY SHOPPING OR FAMILY CENTERED ACTIVITIES IN 8-12 WEEKS 2. PATIENT WILL BE INDEPENDENT WITH STEPS USING RAILING WITH RECIPROCAL GAIT ASCENDING AND DESCENDING TO ACCESS HER APARTMENT AND EXIT IN THE EVENT OF AN EMERGENCY 3. PATIENT WILL BE ABLE TO AMB HOUSEHOLD DISTANCES W/O AD IN 8-12 WEEKS. Coordination/Communication With Referral Source Treatment Plan/Direct Interventions Gait Training,Manual Therapy, Neuromuscular Re-ed, Therapeutic Activities, Therapeutic Exercises Patient Will Be Discharged From Therapy Completion of LTG(s),Skills Plateau,Independently Progressing Evaluation Billing Untimed Code Treatment Minutes 30 PT Eval No Charge No Complexity High Certification Information Provider Signature Shows Agreement With POC & Medical Necessity Physician Signature & Date Requested Please Sign/Date Here Physician Comment/Change : Physician NPI Number #
== END 2022-12-25 16:28 | disposition home or self-care (01) ==
PROVIDERS: PCP Family Medicine; Visit Provider Internal Medicine
DX: R54 Age-related physical debility (principal); Z51.89 Encounter for other specified aftercare
CPT/HCPCS: 97110; 97116; 97163

== ENCOUNTER 2023-10-28 11:02 | Outpatient (CLI) | payer BC, SELFPAY | END 2023-10-28 11:03 | disposition home or self-care (01) | LOC: NFLDREF 10-31 13:48 | PROVIDERS: PCP Family Medicine; Referring Provider Family Medicine; Visit Provider Family Medicine | DX: E78.5 Hyperlipidemia, unspecified (principal) | CPT/HCPCS: 80053; 80061 ==

== ENCOUNTER 2024-01-01 10:45 | Outpatient (RCR) | payer BC, SELFPAY ==
--- NOTE | 2023-11-16 17:20 | PT.OPDNX ---
PT [facility] Outpatient Daily Note PT [facility] Outpatient Daily Note Start: 10/01/23 14:03 Freq: Status: Active Protocol: Document 11/16/23 16:39 ARR (Rec: 11/16/23 16:47 ARR [id number]) E-signed By Anna Canada DPT PT OP Daily Progress Note Visit Information Note Type Daily Note,Recert/Progress Note Visit Number [id number] Insurance Information Recert Due Date 02/14/24 Insurance Name Medicare B Insurance Information/Comments EVAL: 09/30 POC 2x/wk from 09/30 - 11/15 Recert period from 11/16 - 02/13 2x/wk Medical Diagnosis M70.71 other bursitis of hip, right hip Treating Diagnosis M79.604 pain in right thigh M25.561 right hip stiffness M54.17 lumbosacral radiculopathy Referring MD Demarcus Lott MD ([facility]) Subjective Preferred Name Rach Subjective -Symptoms have been real good. -% of day with symptoms into thigh 10%. Symptoms in thigh in the AM, does take ibuprofen in the AM. -One of the days in the evening when getting tired was having more symptoms. Can lift leg easier, can get in car easier and put on pants better. -Still not able to go back to walking for groceries. -QOL scale 4/10 Home Exercise Home Exercise Comments Access Code: [email or web address] URL: [email or web address] Date: 10/08/2023 Prepared by: Anna Canada Exercises - Supine Lower Trunk Rotation - 1-2 x daily - 5-7 x weekly - 6-8 reps - Supine Piriformis Stretch with Foot on Ground - 1-2 x daily - 5-7 x weekly - 3-4 reps - 10-15 sec hold - Sidelying Thoracic and Shoulder Rotation - 1 x daily - 5-7 x weekly - 6-8 reps Objective Other/Pertinent Objective -Gait in neal for LE strengthening able to walk for 2 min 30 sec for 290ft 7 inches before needing seated rest. R HF fatigue Posture: inc?d fwd head and rounded shoulders Palpation: TTP R quad SLS (30 sec): able with B UE support on 4WW. Inc?d R groin pain when lifting R LE from floor to balance Gait: ataxic gait using 4WW for balance, veering from the path w/o LOB RANGE OF MOTION: Lumbar ROM: -Flx: hands to ankles with no changes in pain -Ext: inc?d groin/thigh pain -R Rot: no changes -L Rot: no changes LE ROM (R/L): -Hip ER90: 90 L / 70 R -Hip IR90: 20 L / 30 R -Hip flex: 130 L / 120 R with pain -Hip Abd supine: limited R STRENGTH: LE Strength (R/L) -hip Flexion: 3- bilat mild pain on R -Hip abduction: 2+ bilat with pain onR SPECIAL TESTS: LE Flexibility (R/L) -Hamstring: -/- -Piriformis: +/- -Prone knee bend: + on R in sidelying / - -Hip abd: +/- -Andre Test: nt - Ana M?s Test nt Hip (R/L): -ROSEMARY: +/- -Hip Scour: +/- -FADIR: +/- Patient Instructed in Risks/Benefits Yes Therapeutic Exercise Therapeutic Exercise Minutes (minutes) 25 Therapeutic Exercise: To Restore TE: Indicated for improvement Functional Status in strengthening and mobility. -Handouts with written instructions and photographs of exercises were issued to the patient for exercises to be included in HEP. Answered patient questions regarding POC, and mobility/stretches to perform if pain occurs -NuStep seat 8, arms, 7 WL 4 x 7 min -Sit > stand with 1 UE assist 2 x 5 reps. Cues for nose over toes -Gait in neal for LE strengthening able to walk for 2 min 30 sec for 290ft 7 inches before needing seated rest. R HF fatigue Mechanical Traction Mechanical Traction Comments Patient received mechanical lumbar traction for 15 minutes . Did use intermittent setting at 60? maximum pull and 20? minimum hold duty cycle with intensity being 60 (55 last session) lbs max and 30 (25 last session) lbs minimum. No adverse reaction identified. Patient was positioned supine with hips flexed on leg stool; tolerated treatment well. Remaining time spend on joint and skin assessment. Total treatment time 20 min Total BW 160# Treatment Minutes Untimed Code Treatment Minutes 20 Timed Code Treatment Minutes 25 Total Treatment Time 45 Billing Units Therapeutic Exercise Units 2 Mechanical Traction Units 1 Assessment/Impression Assessment/Impression Assessment of walking tolerance, pt able to walk only 2 min 30 sec before needing to rest due to fatigue and R HF fatigue. Progressed HEP this date for strengthening and activity tolerance. Returned to traction, reducing to 1x/wk to assess response. Goal progress below. This note serves as recertification and as extension of current POC for additional visits 2x/wk x 24 visits within 90 days Plan of Care Physical Therapy Goals STG (within 6 wks) 1) Pt will initiate HEP without increased pain/ symptoms - MET 2) Pt will report standing tolerance at least 10 min to complete dishes / chores - MET 3) Pt will report pain not to extend past R groin to demonstrate reduced neural sensitivity to improve ease of ADLs - UNMET LTG (within 12 weeks) 1) Pt will be indep with HEP for termite treater helper management of pain/symptoms - UNMET 2) Pt will report pain not to extend past R side of low back to demonstrate reduced neural sensitivity to improve ease of ADLs - UNMET 3) Pt will demonstrate lumbar spine AROM without reproduction of concordant sign for improved ability to complete 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 - UNMET 4) Pt will report ability to return ability to complete grocery shopping walking with cart or 4WW pain not extending past R low back - UNMET 5) Pt will report improved QOL at least a 7/10 (0 = poor / 10 = best it's ever been) - UNMET, pt reporting 4 on 11/15 6) Pt will report standing tolerance at least 20 min to complete dishes / chores - PARTIALLY MET Daily Plan of Care Comments -No traction -Continue walking program, nustep, balance, strength Recertification Information Initial Certification Date 10/01/23 Recertification Start Date 11/17/23 Recertification Due Date 02/14/24 Reasons to Continue Skilled Therapy Pt had been seen for right thigh pain, right hip stiffness, radiculopathy for 10 visits from 10/01/23 to during this episode of physical therapy/ certification period. Focus of therapy on lumbar/hip ROM/ stretching. Recent progression to strengthening for core/ glut and global LE strengthening. Interventions including ther exercise, manual therapy, self-care, neuromuscular re-education. Pt's short and termite treater helper goals have not been met at this time. Maximal therapeutic benefit has not been reached. Pt to benefit from continued skilled PT with an extension of current POC at a frequency of 2x/wk for an additional 24 visits. Pt likely to require extended time in PT due to pain severity at start of therapy, pt has had significant improvement with use of lumbar traction. Is not a candidate for home traction due to medical co-morbidities increasing fall risk. Pt to benefit from ongoing therapy reducing in clinic traction completed to assess response of tissues. Then continuing to progress LE strengthening, walking tolerance, and mobility. Pt continues to be unable to walk in a grocery store for shopping, and standing tolerance for ADLs is limited to 10 min. PT to continue as indicated until maximal improvement is reached or goals achieved. Provider Signature Shows Agreement With POC & Medical Necessity Physician Comment/Change Comment or Changes Physician NPI Number #
== END 2024-02-22 09:56 | disposition home or self-care (01) ==
PROVIDERS: PCP Family Medicine; Visit Provider Orthopaedic Surgery
DX: M70.71 Other bursitis of hip, right hip (principal); Z51.89 Encounter for other specified aftercare
CPT/HCPCS: 97012; 97110; 97112; 97140; 97162

== ENCOUNTER 2024-02-07 05:40 | Outpatient (CLI) | payer BC, SELFPAY | END 2024-02-07 05:41 | disposition home or self-care (01) | LOC: AMB 02-10 20:20 | PROVIDERS: PCP Family Medicine; Visit Provider Family Medicine | DX: R41.82 Altered mental status, unspecified (principal) | CPT/HCPCS: A0425; A0427 ==

== ENCOUNTER 2024-02-07 06:20 | Inpatient (IN) | payer BC, SELFPAY ==
[2024-02-07] VITALS (39 sets, daily range): BP systolic 100–150; BP diastolic 56–81; PULSE 71–110; RESP 16–22; TEMP 36.1–38.8; O2SAT 80–99
--- NOTE | 2024-02-07 06:24 | CRLHL7_ITS ---
For Patients: As a result of the Cures Act, medical imaging exams and procedure reports are released immediately into your electronic medical record. You may view this report before your referring provider. If you have questions, please contact your health care provider. INDICATION: Altered mental status, stroke. COMPARISON: Brain MR 11/11/2022 TECHNIQUE: CT of the brain / head without intravenous contrast. Multiplanar axial, coronal, and sagittal reformats were reconstructed. FINDINGS: No intracranial hemorrhage. Normal appearance of the white matter. No acute or subacute cortically based infarct. Scattered white matter hypodensities may be related to chronic microvascular ischemia. No mass or mass effect. Normal ventricles. No skull fractures. No worrisome focal bone lesion. IMPRESSION: Normal head CT. Please note that all CT scans at this facility use dose modulation, iterative reconstruction, and/or weight-based dosing when appropriate to reduce radiation dose to as low as reasonably achievable. Dictated by Diane Peugero MD @ 02/07/2024 6:43:40 AM (Electronically Signed)
--- NOTE | 2024-02-07 06:38 | ED.GENADULT ---
HPI - General Adult General Chief complaint: Altered Mental Status <Hilda Zarco MD - Last Filed: 02/08/24 23:55> Stated complaint: Dizziness <Hilda Zarco MD - Last Filed: 02/08/24 23:55> Time Seen by Provider: 02/07/24 06:24 <Hilda Zarco MD - Last Filed: 02/08/24 23:55> Source: patient and EMS <Hilda Zarco MD - Last Filed: 02/08/24 23:55> Mode of arrival: EMS <Hilda Zarco MD - Last Filed: 02/08/24 23:55> History of Present Illness HPI narrative: 78-year-old female presents to the emergency department for evaluation of altered mental status, brought in by EMS. Patient reports that she when out to smoke at around midnight. She had taken 3 oxycodone tablets which is not typical for her. She reports she was having right shoulder pain which is an ongoing issue and is not due to any new injury or trauma. He was frustrated by the pain and took an old supply of the medication. She denies any alcohol intake tonight but EMS reports that she has been known to be a drinker in the past. She also has thiamin and folate on her medication list. She reports that while she was out having a smoke, she started to feel weak. Her legs started to buckle under her so she went down to the ground. She crawled forward towards the door of the apartment building but was not able to reach it. She says that she did not think she could get up so she just sat on the ground all night. It is unclear if she lost consciousness but she really does not think so. She said that she did not take her phone outside with her so she could not call for help. She has not the least bit distressed by this. She did not attempt to crawl or yell for help from anyone else. One of her neighbor saw her at about 530 in the morning and went to check on her. She reported that she was awakened was able to talk with them but they felt like she seemed ?off? so they called EMS. EMS reports that her house was clean, well kept. Her medications were pretty organized. When they asked about the oxycodone from her story she explained that it is kept differently in a separate place because she does not normally take it. The rationale seemed pretty clear. They reported that she was slurring her words a bit her and just seemed confused about some things. She was moving all of her extremities and was not reporting any focal neurological deficits. She had a coat on appropriately when she was found outside like she had gone outside deliberately. Patient denies any psychiatric issues, denies any recent illness. No fever. Did not fall and hit her head. When I ask her what she think happen tonight, she blames the oxycodone. She has no other acute concerns today. A code stroke was called prior to arrival. Past medical history notable for hypertension, osteoarthritis, history of alcoholism, prior speech did stir beds is listed in her records though I do not know the details. She does have a DNR status in place. She is able to list her home medications for me, mostly just antihypertensives, vitamins and her statin. She has a supply of oxycodone but denies regular use. She does have Valium that she takes p.r.n. for anxiety but denies use of this daily. Review of the record shows that she was last evaluated about a year and a half ago in the ED. At that time she was intoxicated and had fallen against a table, had significant contiguous rib fractures and was ultimately transferred to [facility].. <Hilda Zarco MD - Last Filed: 02/08/24 23:55> Related Data Home medications: Home Medications ?Medication ?Instructions ?Recorded ?Confirmed amlodipine 2.5 mg tablet 2.5 mg PO DAILY 02/07/24 02/07/24 atenolol 100 mg tablet 100 mg PO DAILY 02/07/24 02/07/24 cholecalciferol (vitamin D3) 25 25 mcg PO DAILY 02/07/24 02/07/24 mcg (1,000 unit) capsule diazepam 5 mg tablet 2.5 mg PO DAILY PRN anxiety 02/07/24 02/07/24 folic acid 1 mg tablet 1 mg PO DAILY 02/07/24 02/07/24 omeprazole 20 mg capsule,delayed 20 mg PO DAILY 02/07/24 02/07/24 release oxycodone-acetaminophen 5 mg-325 1 tab PO HS PRN pain 02/07/24 02/07/24 mg tablet psyllium husk (with sugar) 3.4 1 tbsp PO DAILY 02/07/24 02/07/24 gram/12 gram oral powder (Metamucil (with sugar)) rosuvastatin 10 mg tablet 10 mg PO DAILY 02/07/24 02/07/24 thiamine HCl (vitamin B1) 100 mg 100 mg PO DAILY 02/07/24 02/07/24 tablet Previous Rx's ?Medication ?Instructions ?Recorded aspirin 81 mg chewable tablet 1 tab PO DAILY #90 tabs 11/09/23 albuterol sulfate 90 mcg/actuation 2 puff inhalation QID PRN 02/08/24 aerosol inhaler shortness of breath or wheezing #6.7 grams levofloxacin 500 mg tablet 500 mg PO DAILY #3 tabs 02/08/24 prednisone 20 mg tablet 40 mg (2 x 20 mg) PO DAILYWM #12 02/08/24 tabs <Hilda Zarco MD - Last Filed: 02/08/24 23:55> Allergies/adverse reactions: Allergies Allergy/AdvReac Type Severity Reaction Status Date / Time lisinopril Allergy Mild Cough Verified 01/28/24 15:24 <Hilda Zarco MD - Last Filed: 02/08/24 23:55> [facility] Medical History: Medical History (Updated 02/08/24 @ 13:12 by Andre Singer MD) Cognitive impairment ?R41.89 - Other symptoms and signs involving cognitive functions and awareness (ICD-10) Driving safety issue ?Z91.89 - Other specified personal risk factors, not elsewhere classified (ICD-10) Obstructive sleep apnea ?G47.33 - Obstructive sleep apnea (adult) (pediatric) (ICD-10) COPD (chronic obstructive pulmonary disease) ?J44.9 - Chronic obstructive pulmonary disease, unspecified (ICD-10) Tobacco use ?Z72.0 - Tobacco use (ICD-10) Other viral pneumonia ?J12.89 - Other viral pneumonia (ICD-10) Polypharmacy ?Z79.899 - Other electroencephalographic technologist (current) drug therapy (ICD-10) Essential hypertension ?I10 - Essential (primary) hypertension (ICD-10) Carotid artery stenosis ?I65.29 - Occlusion and stenosis of unspecified carotid artery (ICD-10) GERD (gastroesophageal reflux disease) ?K21.9 - Gastro-esophageal reflux disease without esophagitis (ICD-10) Speech disturbance ?R47.9 - Unspecified speech disturbances (ICD-10) Psoriasis ?L40.9 - Psoriasis, unspecified (ICD-10) Do not resuscitate status ?Z66 - Do not resuscitate (ICD-10) Otitis media, acute mucoid ?H65.119 - Acute and subacute allergic otitis media (mucoid) (sanguinous) (serous), unspecified ear (ICD-10) Pain ?R52 - Pain, unspecified (ICD-10) Nicotine dependence ?F17.200 - Nicotine dependence, unspecified, uncomplicated (ICD-10) Mammogram declined ?Z53.20 - Procedure and treatment not carried out because of patient's decision for unspecified reasons (ICD-10) Colon cancer screening declined ?Z53.20 - Procedure and treatment not carried out because of patient's decision for unspecified reasons (ICD-10) Frailty syndrome in geriatric patient ?R54 - Age-related physical debility (ICD-10) Ataxia ?R27.0 - Ataxia, unspecified (ICD-10) Acute delirium ?R41.0 - Disorientation, unspecified (ICD-10) Cyst of face Greater trochanteric bursitis of right hip ?M70.61 - Trochanteric bursitis, right hip (ICD-10) Left hand pain ?M79.642 - Pain in left hand (ICD-10) Left carpal tunnel syndrome ?G56.02 - Carpal tunnel syndrome, left upper limb (ICD-10) Right carpal tunnel syndrome ?G56.01 - Carpal tunnel syndrome, right upper limb (ICD-10) Right rotator cuff tear arthropathy ?M75.101 - Unspecified rotator cuff tear or rupture of right shoulder, not specified as traumatic (ICD-10) ?M12.811 - Other specific arthropathies, not elsewhere classified, right shoulder (ICD-10) Osteoarthritis of right shoulder ?M19.011 - Primary osteoarthritis, right shoulder (ICD-10) Alcoholism ?F10.20 - Alcohol dependence, uncomplicated (ICD-10) History of diverticulitis ?Z87.19 - Personal history of other diseases of the digestive system (ICD-10) <Hilda Zarco MD - Last Filed: 02/08/24 23:55> Surgical History: Surgical History History of phacoemulsification of cataract of left eye with intraocular lens implantation (06/01/19) ?Z98.42 - Cataract extraction status, left eye (ICD-10) ?Z96.1 - Presence of intraocular lens (ICD-10) H/O foot surgery (10/19/14) ?Z98.890 - Other specified postprocedural states (ICD-10) <Hilda Zarco MD - Last Filed: 02/08/24 23:55> Social History: Social History (Updated 02/07/24 @ 13:03 by Andre Singer MD) Narrative: SOCIAL HISTORY: Single and retired. She has a daughter, Margo Cox, and granddaughter in town. She reports she is not close to her daughter but would choose her daughter as healthcare power of real estate associate attorney in an emergency. Code status is DNR DNI. She does not want any heroic interventions. HABITS: Not sexually active. Walking, stationary bike, resistance 5x/week. She smokes 4 cigarettes per day. No alcohol since Apr 2022. Prev 7 shots per day. No recreational drug use. What is your current living situation?: I presently have a place to live Problems where you live: no known problems Problems where you live details: apartment building In the past 12 months, utilities in danger of being shut off: no In past 12 months, lack of transportation kept you from medical appts, meetings, work, or getting things needed for daily living: no In the past 12 mos, have been you worried that your food would run out before you had money to buy more?: never true In the past 12 mos, the food you bought just didn't last and you didn't have money to buy more?: never true Smoking Status: Current every day smoker What tobacco products do you use: cigarettes Smoking packs per day: 1 Smoking cigarettes per day: 20.0 Do you use any of these nicotine containing products: None Second hand tobacco smoke exposure: No How often do you have a drink containing alcohol: 4 or more times a week Alcohol type: hard liquor How many standard drinks containing alcohol do you have on a typical day: 3 or 4 How often do you have six or more drinks on one occasion: Never AUDIT-C Alcohol total score: 5 Non-prescribed substance use: denies use Caffeine: Yes (soda daily) How often does anyone, including family, friends and others, physically hurt you: never How often does anyone, including family, friends and others, insult or talk down to you: never How often does anyone, including family, friends and others, threaten you with harm: never How often does anyone, including family, friends and others, scream or curse at you: never Little interest or pleasure in doing things: not at all Feeling down, depressed, or hopeless: not at all Are you using contraception or practicing any form of control: No service: No <Hilda Zarco MD - Last Filed: 02/08/24 23:55> Exam Const: Vital Signs, click to edit/add: Vital Signs - 24 hr 02/08/24 03:00 02/08/24 07:00 02/08/24 07:47 Temperature 98.5 F 98.3 F Pulse Rate [Apical ] 86 94 Respiratory Rate 22 18 Blood Pressure [Ri ght Arm] 115/63 126/69 Pulse Oximetry 92 94 93 Oxygen Delivery Me thod Nasal Cannula Nasal Cannula Nasal Cannula Oxygen Flow Rate 2 2 2 <Hilda Zarco MD - Last Filed: 02/08/24 23:55> Vital Signs, click to edit/add: Vital Signs - 24 hr 02/08/24 03:00 02/08/24 07:00 02/08/24 07:47 Temperature 98.5 F 98.3 F Pulse Rate [Apical ] 86 94 Respiratory Rate 22 18 Blood Pressure [Ri ght Arm] 115/63 126/69 Pulse Oximetry 92 94 93 Oxygen Delivery Me thod Nasal Cannula Nasal Cannula Nasal Cannula Oxygen Flow Rate 2 2 2 <Huan Marcos MD - Last Filed: 02/07/24 11:29> Documenting provider has reviewed patient's vital signs: yes <Hilda Zarco MD - Last Filed: 02/08/24 23:55> Common normals: oriented x3 and alert <Hilda Zarco MD - Last Filed: 02/08/24 23:55> General appearance: well kempt <Hilda Zarco MD - Last Filed: 02/08/24 23:55> Other: Cooperative, no agitation. Her speech and answers have almost a sing-song quality to them. Slight slurring. No evidence of aphasia. Clean, well groomed. Does not seem distressed. No smell of alcohol, urine or body odor. <Hilda Zarco MD - Last Filed: 02/08/24 23:55> HENMT: Common normals: normocephalic, head/scalp atraumatic and TM's normal bilaterally <Hilda Zarco MD - Last Filed: 02/08/24 23:55> Head and scalp: normocephalic and atraumatic <Hilda Zarco MD - Last Filed: 02/08/24 23:55> Face and sinus: normal facial exam <MD Radha Soto Last Filed: 02/08/24 23:55> Tympanic membrane: TM's normal bilaterally <MD Radha Soto Last Filed: 02/08/24 23:55> Mouth: oral and palatal mucosa normal <MD Radha Soto Last Filed: 02/08/24 23:55> Throat: posterior oropharynx normal <MD Radha Soto Last Filed: 02/08/24 23:55> Eye: Common normals: PERRL, EOMs intact bilaterally and conjunctivae normal <MD Radha Soto Last Filed: 02/08/24 23:55> General eye: normal appearance of both eyes <MD Radha Soto Last Filed: 02/08/24 23:55> Conjunctiva: conjunctiva(e) normal <MD Radha Soto Last Filed: 02/08/24 23:55> Pupil: PERRL <MD Radha Soto Last Filed: 02/08/24 23:55> Neck & C-Spine: Common normals: full ROM and no lymphadenopathy <MD Radha Soto Last Filed: 02/08/24 23:55> General: normal visual inspection <MD Radha Soto Last Filed: 02/08/24 23:55> Cervical spine: cervical ROM normal <MD Radha Soto Last Filed: 02/08/24 23:55> Chest: Common normals: palpation of chest normal <Hilda Zarco MD - Last Filed: 02/08/24 23:55> Resp: Common normals: normal respiratory effort and no use of accessory muscles <MD Radha Soto Last Filed: 02/08/24 23:55> Effort & inspection: able to speak in complete sentences <MD Radha Soto Last Filed: 02/08/24 23:55> Other: Breath sounds are slightly decreased at both bases but no obvious crackles or wheeze. <Hilda Zarco MD - Last Filed: 02/08/24 23:55> Cardio: Common normals: regular rate, regular rhythm, S1 normal heart sound, S2 normal heart sound and no murmurs <Hilda Zarco MD - Last Filed: 02/08/24 23:55> Rate: regular rate <MD Radha Soto Last Filed: 02/08/24 23:55> Rhythm: regular rhythm <MD Radha Soto Last Filed: 02/08/24 23:55> Heart sounds: S1 normal and S2 normal <MD Radha Soto Last Filed: 02/08/24 23:55> GI: Common normals: Normal to inspection, nondistended, normoactive bowel sounds present, soft to palpation, non-tender, no hepatosplenomegaly and no masses <Hilda Zarco MD - Last Filed: 02/08/24 23:55> Palpation: soft and no hepatosplenomegaly <MD Radha Soto Last Filed: 02/08/24 23:55> Back & Pelvis: Common normals: thoracic and lumbar spine normal to inspection <MD Radha Soto Last Filed: 02/08/24 23:55> Extremity: Common normals: normal to inspection, full ROM and normal capillary refill <MD Radha Soto Last Filed: 02/08/24 23:55> Neuro: Common normals: oriented x3, CN's II-XII intact bilaterally, moves all extremities and no focal motor deficits <Hilda Zarco MD - Last Filed: 02/08/24 23:55> Sensorium/orientation: alert <Hilda Zarco MD - Last Filed: 02/08/24 23:55> Other: Some mild generalized weakness but no focal deficits are appreciated. Slightly slurred speech but no facial asymmetry. <Hilda Zarco MD - Last Filed: 02/08/24 23:55> Psych: Appearance: well kempt <Hilda Zarco MD - Last Filed: 02/08/24 23:55> Attitude: calm and engaged <Hilda Zarco MD - Last Filed: 02/08/24 23:55> Insight: fair <Hilda Zarco MD - Last Filed: 02/08/24 23:55> Judgement: fair <Hilda Zarco MD - Last Filed: 02/08/24 23:55> Skin: Common normals: no rashes or lesions noted <Hilda Zarco MD - Last Filed: 02/08/24 23:55> Narrative: No bruising, signs of injuries or trauma. <Hilda Zarco MD - Last Filed: 02/08/24 23:55> General skin exam: no rashes or lesions noted <Hilda Zarco MD - Last Filed: 02/08/24 23:55> Course Course ED Course: 78-year-old female, found down with altered mental status. Suspect narcotic intoxication. No evidence of severe respiratory suppression at this time. Differential diagnosis also includes sepsis, stroke, electrolyte abnormality, alcohol intoxication, delirium, head injury, amongst others. Will obtain alcohol levels, CT of the head, chest x-ray, typical metabolic labs, venous blood gas, urinalysis and drug screen. EKG. Will bolus 0.5 L of normal saline and placed on a traffic monitor specialist. Viral swabs. Await findings. Dr. Eason from Neurology called early in the workup because of the code stroke activation. Together, we both feel like this is probably more of than intoxication or metabolic phenomenon rather than an acute neurological emergency. I have her cell phone number and will call her back if our workup shows otherwise. And over care to incoming day shift partner. <Hilda Zarco MD - Last Filed: 02/08/24 23:55> Vital Signs Vital signs: Initial Vital Signs Pulse Rate 87 02/07/24 06:35 Pulse Oximetry 92 02/07/24 06:35 Vital Signs Pulse Rate 87 02/07/24 06:35 Pulse Oximetry 92 02/07/24 06:35 Temperature 98.3 F 02/08/24 07:47 Pulse Rate 94 02/08/24 07:47 Respiratory Rate 18 02/08/24 07:47 Blood Pressure 126/69 02/08/24 07:47 Pulse Oximetry 93 02/08/24 07:47 Oxygen Delivery Method Nasal Cannula 02/08/24 07:47 Oxygen Flow Rate 2 02/08/24 07:47 <Hilda Zarco MD - Last Filed: 02/08/24 23:55> Initial Vital Signs Pulse Rate 87 02/07/24 06:35 Pulse Oximetry 92 02/07/24 06:35 Vital Signs Pulse Rate 87 02/07/24 06:35 Pulse Oximetry 92 02/07/24 06:35 Temperature 98.3 F 02/08/24 07:47 Pulse Rate 94 02/08/24 07:47 Respiratory Rate 18 02/08/24 07:47 Blood Pressure 126/69 02/08/24 07:47 Pulse Oximetry 93 02/08/24 07:47 Oxygen Delivery Method Nasal Cannula 02/08/24 07:47 Oxygen Flow Rate 2 02/08/24 07:47 <Huan Marcos MD - Last Filed: 02/07/24 11:29> Medications Administered Medications: Discontinued Medications Generic Name Dose Route Start Last Admin Trade Name Freq PRN Reason Stop Dose Admin Acetaminophen 650 mg 02/07/24 12:34 02/07/24 19:51 Acetaminophen 325 Mg Tablet PO 650 mg Q4H PRN Administration Albuterol/Ipratropium 1 neb 02/07/24 13:00 02/08/24 17:34 Iprat-Albut 0.5-2.5 Mg/3 Ml Neb IH Not Given QID MARK Amlodipine Besylate 2.5 mg 02/08/24 09:00 02/08/24 09:00 Amlodipine 5 Mg Tablet PO 2.5 mg DAILY MARK Administration Aspirin 81 mg 02/08/24 09:00 02/08/24 09:02 Aspirin 81 Mg Tab.Chew PO 81 mg DAILY MARK Administration Atenolol 100 mg 02/08/24 09:00 02/08/24 09:00 Atenolol 50 Mg Tablet PO 100 mg DAILY MARK Administration Azithromycin 500 mg 02/07/24 11:05 02/07/24 11:20 Azithromycin 250 Mg Tablet PO 02/07/24 11:06 500 mg ONCE ONE Administration Azithromycin 500 mg 02/08/24 09:00 02/08/24 09:02 Azithromycin 250 Mg Tablet PO 500 mg Q24H MARK Administration Enoxaparin Sodium 30 mg 02/07/24 12:45 02/08/24 17:33 Enoxaparin 30 Mg/0.3ml Inj SUBCUT Not Given Q24H MARK Folic Acid 1 mg 02/08/24 09:00 02/08/24 09:02 Folic Acid 1 Mg Tablet PO 1 mg DAILY MARK Administration Sodium Chloride 500 mls @ 500 mls/hr 02/07/24 06:52 02/07/24 08:27 0.9 % Sodium Chloride 500 Ml IV 02/07/24 07:51 Infused .Q1H ONE Infusion Ceftriaxone Sodium 1 gm/ 100 mls @ 200 mls/hr 02/07/24 11:05 02/07/24 13:36 Sodium Chloride IVPB 02/07/24 11:06 Infused ONCE ONE Infusion Ceftriaxone Sodium 1 gm/ 100 mls @ 200 mls/hr 02/08/24 09:00 02/08/24 10:18 Sodium Chloride IVPB Infused Q24H MARK Infusion Omeprazole 20 mg 02/08/24 09:00 02/08/24 09:02 Omeprazole [address] PO 20 mg DAILY MARK Administration Ondansetron HCl 4 mg 02/07/24 12:34 02/07/24 17:18 Ondansetron 2 Mg/Ml Inj IVP 4 mg Q4H PRN Administration Nausea Prednisone 40 mg 02/07/24 17:45 02/08/24 09:02 Prednisone 20 Mg Tablet PO 40 mg DAILYWM MARK Administration Psyllium Hydrophilic Mucilloid 12 gm 02/08/24 09:00 02/08/24 09:03 Psyllium Husk (With Sugar) 12 Gm Packet PO 12 gm DAILY MARK Administration Rosuvastatin Calcium 10 mg 02/08/24 09:00 02/08/24 09:02 Rosuvastatin Calcium 10 Mg Tablet PO 10 mg DAILY MARK Administration Sodium Chloride 5 ml 02/07/24 21:00 02/08/24 09:03 Sodium Chloride 0.9 % (Flush) 10 Ml Syringe IVF 5 ml BID MARK Administration Thiamine HCl 100 mg 02/08/24 09:00 02/08/24 09:03 Thiamine 100 Mg Tablet PO 100 mg DAILY MARK Administration Vitamin D 25 mcg 02/08/24 09:00 02/08/24 09:02 Cholecalciferol (Vitamin D3) 25 Mcg Tablet (1000 Unit) PO 25 mcg DAILY MARK Administration <Hilda Zarco MD - Last Filed: 02/08/24 23:55> Discontinued Medications Generic Name Dose Route Start Last Admin Trade Name Freq PRN Reason Stop Dose Admin Acetaminophen 650 mg 02/07/24 12:34 02/07/24 19:51 Acetaminophen 325 Mg Tablet PO 650 mg Q4H PRN Administration Albuterol/Ipratropium 1 neb 02/07/24 13:00 02/08/24 17:34 Iprat-Albut 0.5-2.5 Mg/3 Ml Neb IH Not Given QID MARK Amlodipine Besylate 2.5 mg 02/08/24 09:00 02/08/24 09:00 Amlodipine 5 Mg Tablet PO 2.5 mg DAILY MARK Administration Aspirin 81 mg 02/08/24 09:00 02/08/24 09:02 Aspirin 81 Mg Tab.Chew PO 81 mg DAILY MARK Administration Atenolol 100 mg 02/08/24 09:00 02/08/24 09:00 Atenolol 50 Mg Tablet PO 100 mg DAILY MARK Administration Azithromycin 500 mg 02/07/24 11:05 02/07/24 11:20 Azithromycin 250 Mg Tablet PO 02/07/24 11:06 500 mg ONCE ONE Administration Azithromycin 500 mg 02/08/24 09:00 02/08/24 09:02 Azithromycin 250 Mg Tablet PO 500 mg Q24H MARK Administration Enoxaparin Sodium 30 mg 02/07/24 12:45 02/08/24 17:33 Enoxaparin 30 Mg/0.3ml Inj SUBCUT Not Given Q24H [facility] Folic Acid 1 mg 02/08/24 09:00 02/08/24 09:02 Folic Acid 1 Mg Tablet PO 1 mg DAILY MARK Administration Sodium Chloride 500 mls @ 500 mls/hr 02/07/24 06:52 02/07/24 08:27 0.9 % Sodium Chloride 500 Ml IV 02/07/24 07:51 Infused .Q1H ONE Infusion Ceftriaxone Sodium 1 gm/ 100 mls @ 200 mls/hr 02/07/24 11:05 02/07/24 13:36 Sodium Chloride IVPB 02/07/24 11:06 Infused ONCE ONE Infusion Ceftriaxone Sodium 1 gm/ 100 mls @ 200 mls/hr 02/08/24 09:00 02/08/24 10:18 Sodium Chloride IVPB Infused Q24H MARK Infusion Omeprazole 20 mg 02/08/24 09:00 02/08/24 09:02 Omeprazole [address] PO 20 mg DAILY MARK Administration Ondansetron HCl 4 mg 02/07/24 12:34 02/07/24 17:18 Ondansetron 2 Mg/Ml Inj IVP 4 mg Q4H PRN Administration Nausea Prednisone 40 mg 02/07/24 17:45 02/08/24 09:02 Prednisone 20 Mg Tablet PO 40 mg DAILYWM MARK Administration Psyllium Hydrophilic Mucilloid 12 gm 02/08/24 09:00 02/08/24 09:03 Psyllium Husk (With Sugar) 12 Gm Packet PO 12 gm DAILY MARK Administration Rosuvastatin Calcium 10 mg 02/08/24 09:00 02/08/24 09:02 Rosuvastatin Calcium 10 Mg Tablet PO 10 mg DAILY MARK Administration Sodium Chloride 5 ml 02/07/24 21:00 02/08/24 09:03 Sodium Chloride 0.9 % (Flush) 10 Ml Syringe IVF 5 ml BID MARK Administration Thiamine HCl 100 mg 02/08/24 09:00 02/08/24 09:03 Thiamine 100 Mg Tablet PO 100 mg DAILY MARK Administration Vitamin D 25 mcg 02/08/24 09:00 02/08/24 09:02 Cholecalciferol (Vitamin D3) 25 Mcg Tablet (1000 Unit) PO 25 mcg DAILY MARK Administration <Huan Marcos MD - Last Filed: 02/07/24 11:29> Medical Decision Making MDM Narrative Medical decision making narrative: Care for this patient was transferred to me at the end of the overnight shift. The patient seems to be regaining strength and was able to get up and ambulate but when doing so head hypoxia with oximetry at around 82-83%. The patient stated that she would prefer to return home but does live alone and with this hypoxia and evidence of urinary tract infection it is best for her to stay here. Dr. Singer agrees to her admission. The patient did receive an IV dose of Rocephin 1 g an oral dose of azithromycin 500 mg. <Huan Marcos MD - Last Filed: 02/07/24 11:29> Lab Data Lab results reviewed: Yes I reviewed the patient's lab results <Hilda Zarco MD - Last Filed: 02/08/24 23:55> Lab results narrative: Leukocytosis with left shift noted. Lactate mildly elevated but that really could be from dehydration from being outside overnight. C-reactive protein and procalcitonin look okay. Liver enzymes reassuring. Creatinine stable. <Hilda Zarco MD - Last Filed: 02/08/24 23:55> Labs: Lab Results 02/07/24 02/07/24 02/07/24 Range/Units 06:35 06:35 06:50 WBC 13.67 H (4.50-11.00) K/uL RBC 4.75 (4.00-5.20) m/uL Hgb 12.3 (12.0-16.0) gm/dL Hct 40.4 (33.0-51.0) % MCV 85 (80-100) fL MCH 26 (26-34) pg MCHC 30 L (32-36) gm/dL RDW Coeff of Santos 17.9 H (11.5-15.5) % Plt Count 402 (140-440) K/uL Neut % (Auto) 82.3 H (42.0-72.0) % Lymph % (Auto) 9.0 L (20-44) % Tompkins % (Auto) 6.5 (0.0-11.0) % Eos % (Auto) 0.5 (0.0-7.0) % Baso % (Auto) 0.2 (0.0-3.0) % Neut # (Auto) 11.30 H (1.7-7.0) K/uL Lymph # (Auto) 1.20 (0.90-2.90) K/uL Tompkins # (Auto) 0.90 (0.00-0.90) K/UL Eos # (Auto) 0.10 (0.00-0.50) K/uL Baso # (Auto) 0.00 (0.00-0.30) K/uL Abs Immat Gran (auto) 0.20 (0.00-0.30) K/uL Imm/Tot Granulo (auto) 1.5 % VBG pH 7.309 L (7.32-7.43) VBG pCO2 50 (40-50) mmHG VBG pO2 < 30.1 (25-47) mmHG VBG HCO3 25 (21-28) mmol/L Sodium 138 (135-149) mmol/L Potassium 3.5 L (3.6-5.1) mmol/L Chloride 105 (96-114) mmol/L Carbon Dioxide 22 (20-32) mmol/L Anion Gap 11 (7-15) mEq/L BUN 16 (7-30) mg/dL Creatinine 0.8 (0.5-1.5) mg/dL Estimated Creat Clear Estimated GFR 76 ml/min Glucose 147 H (60-115) mg/dL Lactate 2.2 H (0.5-1.9) mmol/L Calcium 9.7 (8.4-10.6) mg/dL Magnesium 2.1 (1.5-2.6) mg/dL Total Bilirubin 0.3 (0.1-1.5) mg/dL AST 19 (12-35) U/L ALT 13 (4-35) U/L Alkaline Phosphatase 74 (40-150) U/L Total Creatine Kinase 47 (41-117) U/L C-Reactive Protein < 0.5 L Cancelled (0.5-1.0) mg/dL Total Protein 8.1 (6.0-8.3) g/dL Albumin 4.6 (3.3-5.0) g/dL Procalcitonin 0.06 (<0.50) ng/mL TSH 2.690 (0.270-4.20) uIU/mL Urine Color (Yellow) Urine Appearance (Clear) Urine pH (5.0-8.5) Ur Specific [place] (1.000-1.030) Urine Protein (Negative) Urine Glucose (UA) (Negative) Urine Ketones (Negative) Urine Blood (Negative) Urine Nitrite (Negative) Urine Bilirubin (Negative) Urine Urobilinogen (0.2-1.0) Ur Leukocyte Esterase (Negative) Urine RBC (0-2) Urine WBC (0-5) Ur Squamous Epith Cells (None-Few) Urine Bacteria (None) Urine Yeast (None) Urine Opiates Screen (Negative) Ur Oxycodone Screen (Negative) Urine Methadone Screen (Negative) Ur Barbiturates Screen (Negative) U Tricyclic Antidepress (Negative) Ur Phencyclidine Scrn (Negative) Ur Amphetamines Screen (Negative) U Methamphetamines Scrn (Negative) U Benzodiazepines Scrn (Negative) Urine Cocaine Screen (Negative) U Marijuana (THC) Screen (Negative) Ur Drug Screen Comment Ethyl Alcohol < 0.01 L (0.01-0.03) % SARS-CoV-2 (PCR) (Negative) Influenza Type A (PCR) (Negative) Influenza Type B (PCR) (Negative) RSV (PCR) (Negative) Lab Acknowledgement POC Troponin I 0.00 L (0.01-0.04) ng/ml 02/07/24 02/07/24 02/07/24 Range/Units 07:31 12:40 17:56 WBC (4.50-11.00) K/uL RBC (4.00-5.20) m/uL Hgb (12.0-16.0) gm/dL Hct (33.0-51.0) % MCV (80-100) fL MCH (26-34) pg MCHC (32-36) gm/dL RDW Coeff of Santos (11.5-15.5) % Plt Count (140-440) K/uL Neut % (Auto) (42.0-72.0) % Lymph % (Auto) (20-44) % [place] % (Auto) (0.0-11.0) % Eos % (Auto) (0.0-7.0) % Baso % (Auto) (0.0-3.0) % Neut # (Auto) (1.7-7.0) K/uL Lymph # (Auto) (0.90-2.90) K/uL [place] # (Auto) (0.00-0.90) K/UL Eos # (Auto) (0.00-0.50) K/uL Baso # (Auto) (0.00-0.30) K/uL Abs Immat Gran (auto) (0.00-0.30) K/uL Imm/Tot Granulo (auto) % VBG pH 7.311 L (7.32-7.43) VBG pCO2 52 H (40-50) mmHG VBG pO2 < 30.1 (25-47) mmHG VBG HCO3 26 (21-28) mmol/L Sodium (135-149) mmol/L Potassium (3.6-5.1) mmol/L Chloride (96-114) mmol/L Carbon Dioxide (20-32) mmol/L Anion Gap (7-15) mEq/L BUN (7-30) mg/dL Creatinine (0.5-1.5) mg/dL Estimated Creat Clear Estimated GFR ml/min Glucose (60-115) mg/dL Lactate 1.2 (0.5-1.9) mmol/L Calcium (8.4-10.6) mg/dL Magnesium (1.5-2.6) mg/dL Total Bilirubin (0.1-1.5) mg/dL AST (12-35) U/L ALT (4-35) U/L Alkaline Phosphatase (40-150) U/L Total Creatine Kinase (41-117) U/L C-Reactive Protein (0.5-1.0) mg/dL Total Protein (6.0-8.3) g/dL Albumin (3.3-5.0) g/dL Procalcitonin (<0.50) ng/mL TSH (0.270-4.20) uIU/mL Urine Color (Yellow) Urine Appearance (Clear) Urine pH (5.0-8.5) Ur Specific [place] (1.000-1.030) Urine Protein (Negative) Urine Glucose (UA) (Negative) Urine Ketones (Negative) Urine Blood (Negative) Urine Nitrite (Negative) Urine Bilirubin (Negative) Urine Urobilinogen (0.2-1.0) Ur Leukocyte Esterase (Negative) Urine RBC (0-2) Urine WBC (0-5) Ur Squamous Epith Cells (None-Few) Urine Bacteria (None) Urine Yeast (None) Urine Opiates Screen (Negative) Ur Oxycodone Screen (Negative) Urine Methadone Screen (Negative) Ur Barbiturates Screen (Negative) U Tricyclic Antidepress (Negative) Ur Phencyclidine Scrn (Negative) Ur Amphetamines Screen (Negative) U Methamphetamines Scrn (Negative) U Benzodiazepines Scrn (Negative) Urine Cocaine Screen (Negative) U Marijuana (THC) Screen (Negative) Ur Drug Screen Comment Ethyl Alcohol (0.01-0.03) % SARS-CoV-2 (PCR) Negative SARS-CoV-2 (Negative) Influenza Type A (PCR) Negative PCR FLU A (Negative) Influenza Type B (PCR) Negative PCR FLU B (Negative) RSV (PCR) Negative PCR RSV (Negative) Lab Acknowledgement Test Added POC Troponin I (0.01-0.04) ng/ml 02/07/24 02/08/24 Range/Units Unknown 06:00 WBC 15.77 H (4.50-11.00) K/uL RBC 4.25 (4.00-5.20) m/uL Hgb 11.1 L (12.0-16.0) gm/dL Hct 35.9 (33.0-51.0) % MCV 85 (80-100) fL MCH 26 (26-34) pg MCHC 31 L (32-36) gm/dL RDW Coeff of Santos 17.8 H (11.5-15.5) % Plt Count 390 (140-440) K/uL Neut % (Auto) 92.4 H (42.0-72.0) % Lymph % (Auto) 5.3 L (20-44) % [place] % (Auto) 1.5 (0.0-11.0) % Eos % (Auto) 0.0 (0.0-7.0) % Baso % (Auto) 0.2 (0.0-3.0) % Neut # (Auto) 14.60 H (1.7-7.0) K/uL Lymph # (Auto) 0.80 L (0.90-2.90) K/uL [place] # (Auto) 0.20 (0.00-0.90) K/UL Eos # (Auto) 0.00 (0.00-0.50) K/uL Baso # (Auto) 0.00 (0.00-0.30) K/uL Abs Immat Gran (auto) 0.10 (0.00-0.30) K/uL Imm/Tot Granulo (auto) 0.6 % VBG pH 7.386 (7.32-7.43) VBG pCO2 42 (40-50) mmHG VBG pO2 70.6 H (25-47) mmHG VBG HCO3 25 (21-28) mmol/L Sodium 136 (135-149) mmol/L Potassium 4.0 (3.6-5.1) mmol/L Chloride 105 (96-114) mmol/L Carbon Dioxide 24 (20-32) mmol/L Anion Gap 7 (7-15) mEq/L BUN 17 (7-30) mg/dL Creatinine 0.6 (0.5-1.5) mg/dL Estimated Creat Clear 34.38 Estimated GFR 93 ml/min Glucose 147 H (60-115) mg/dL Lactate 0.8 (0.5-1.9) mmol/L Calcium 9.0 (8.4-10.6) mg/dL Magnesium (1.5-2.6) mg/dL Total Bilirubin 0.5 (0.1-1.5) mg/dL AST 18 (12-35) U/L ALT 10 (4-35) U/L Alkaline Phosphatase 64 (40-150) U/L Total Creatine Kinase (41-117) U/L C-Reactive Protein 4.4 H (0.5-1.0) mg/dL Total Protein 7.1 (6.0-8.3) g/dL Albumin 3.9 (3.3-5.0) g/dL Procalcitonin (<0.50) ng/mL TSH (0.270-4.20) uIU/mL Urine Color Yellow (Yellow) Urine Appearance Cloudy A (Clear) Urine pH 5.5 (5.0-8.5) Ur Specific [place] 1.025 (1.000-1.030) Urine Protein 2+ A (Negative) Urine Glucose (UA) Negative (Negative) Urine Ketones Negative (Negative) Urine Blood 2+ A (Negative) Urine Nitrite Positive A (Negative) Urine Bilirubin Negative (Negative) Urine Urobilinogen 0.2 (0.2-1.0) Ur Leukocyte Esterase 1+ A (Negative) Urine RBC 0-2 (0-2) Urine WBC 10-25 A (0-5) Ur Squamous Epith Cells Many A (None-Few) Urine Bacteria Many A (None) Urine Yeast Few A (None) Urine Opiates Screen Negative (Negative) Ur Oxycodone Screen POSITIVE A (Negative) Urine Methadone Screen Negative (Negative) Ur Barbiturates Screen Negative (Negative) U Tricyclic Antidepress Negative (Negative) Ur Phencyclidine Scrn Negative (Negative) Ur Amphetamines Screen Negative (Negative) U Methamphetamines Scrn Negative (Negative) U Benzodiazepines Scrn POSITIVE A (Negative) Urine Cocaine Screen Negative (Negative) U Marijuana (THC) Screen Negative (Negative) Ur Drug Screen Comment See Note Ethyl Alcohol (0.01-0.03) % SARS-CoV-2 (PCR) (Negative) Influenza Type A (PCR) (Negative) Influenza Type B (PCR) (Negative) RSV (PCR) (Negative) Lab Acknowledgement POC Troponin I (0.01-0.04) ng/ml <Hilda Zarco MD - Last Filed: 02/08/24 23:55> Lab Results 02/07/24 02/07/24 02/07/24 Range/Units 06:35 06:35 06:50 WBC 13.67 H (4.50-11.00) K/uL RBC 4.75 (4.00-5.20) m/uL Hgb 12.3 (12.0-16.0) gm/dL Hct 40.4 (33.0-51.0) % MCV 85 (80-100) fL MCH 26 (26-34) pg MCHC 30 L (32-36) gm/dL RDW Coeff of Santos 17.9 H (11.5-15.5) % Plt Count 402 (140-440) K/uL Neut % (Auto) 82.3 H (42.0-72.0) % Lymph % (Auto) 9.0 L (20-44) % [place] % (Auto) 6.5 (0.0-11.0) % Eos % (Auto) 0.5 (0.0-7.0) % Baso % (Auto) 0.2 (0.0-3.0) % Neut # (Auto) 11.30 H (1.7-7.0) K/uL Lymph # (Auto) 1.20 (0.90-2.90) K/uL [place] # (Auto) 0.90 (0.00-0.90) K/UL Eos # (Auto) 0.10 (0.00-0.50) K/uL Baso # (Auto) 0.00 (0.00-0.30) K/uL Abs Immat Gran (auto) 0.20 (0.00-0.30) K/uL Imm/Tot Granulo (auto) 1.5 % VBG pH 7.309 L (7.32-7.43) VBG pCO2 50 (40-50) mmHG VBG pO2 < 30.1 (25-47) mmHG VBG HCO3 25 (21-28) mmol/L Sodium 138 (135-149) mmol/L Potassium 3.5 L (3.6-5.1) mmol/L Chloride 105 (96-114) mmol/L Carbon Dioxide 22 (20-32) mmol/L Anion Gap 11 (7-15) mEq/L BUN 16 (7-30) mg/dL Creatinine 0.8 (0.5-1.5) mg/dL Estimated Creat Clear Estimated GFR 76 ml/min Glucose 147 H (60-115) mg/dL Lactate 2.2 H (0.5-1.9) mmol/L Calcium 9.7 (8.4-10.6) mg/dL Magnesium 2.1 (1.5-2.6) mg/dL Total Bilirubin 0.3 (0.1-1.5) mg/dL AST 19 (12-35) U/L ALT 13 (4-35) U/L Alkaline Phosphatase 74 (40-150) U/L Total Creatine Kinase 47 (41-117) U/L C-Reactive Protein < 0.5 L Cancelled (0.5-1.0) mg/dL Total Protein 8.1 (6.0-8.3) g/dL Albumin 4.6 (3.3-5.0) g/dL Procalcitonin 0.06 (<0.50) ng/mL TSH 2.690 (0.270-4.20) uIU/mL Urine Color (Yellow) Urine Appearance (Clear) Urine pH (5.0-8.5) Ur Specific [place] (1.000-1.030) Urine Protein (Negative) Urine Glucose (UA) (Negative) Urine Ketones (Negative) Urine Blood (Negative) Urine Nitrite (Negative) Urine Bilirubin (Negative) Urine Urobilinogen (0.2-1.0) Ur Leukocyte Esterase (Negative) Urine RBC (0-2) Urine WBC (0-5) Ur Squamous Epith Cells (None-Few) Urine Bacteria (None) Urine Yeast (None) Urine Opiates Screen (Negative) Ur Oxycodone Screen (Negative) Urine Methadone Screen (Negative) Ur Barbiturates Screen (Negative) U Tricyclic Antidepress (Negative) Ur Phencyclidine Scrn (Negative) Ur Amphetamines Screen (Negative) U Methamphetamines Scrn (Negative) U Benzodiazepines Scrn (Negative) Urine Cocaine Screen (Negative) U Marijuana (THC) Screen (Negative) Ur Drug Screen Comment Ethyl Alcohol < 0.01 L (0.01-0.03) % SARS-CoV-2 (PCR) (Negative) Influenza Type A (PCR) (Negative) Influenza Type B (PCR) (Negative) RSV (PCR) (Negative) Lab Acknowledgement POC Troponin I 0.00 L (0.01-0.04) ng/ml 02/07/24 02/07/24 02/07/24 Range/Units 07:31 12:40 17:56 WBC (4.50-11.00) K/uL RBC (4.00-5.20) m/uL Hgb (12.0-16.0) gm/dL Hct (33.0-51.0) % MCV (80-100) fL MCH (26-34) pg MCHC (32-36) gm/dL RDW Coeff of Santos (11.5-15.5) % Plt Count (140-440) K/uL Neut % (Auto) (42.0-72.0) % Lymph % (Auto) (20-44) % [place] % (Auto) (0.0-11.0) % Eos % (Auto) (0.0-7.0) % Baso % (Auto) (0.0-3.0) % Neut # (Auto) (1.7-7.0) K/uL Lymph # (Auto) (0.90-2.90) K/uL [place] # (Auto) (0.00-0.90) K/UL Eos # (Auto) (0.00-0.50) K/uL Baso # (Auto) (0.00-0.30) K/uL Abs Immat Gran (auto) (0.00-0.30) K/uL Imm/Tot Granulo (auto) % VBG pH 7.311 L (7.32-7.43) VBG pCO2 52 H (40-50) mmHG VBG pO2 < 30.1 (25-47) mmHG VBG HCO3 26 (21-28) mmol/L Sodium (135-149) mmol/L Potassium (3.6-5.1) mmol/L Chloride (96-114) mmol/L Carbon Dioxide (20-32) mmol/L Anion Gap (7-15) mEq/L BUN (7-30) mg/dL Creatinine (0.5-1.5) mg/dL Estimated Creat Clear Estimated GFR ml/min Glucose (60-115) mg/dL Lactate 1.2 (0.5-1.9) mmol/L Calcium (8.4-10.6) mg/dL Magnesium (1.5-2.6) mg/dL Total Bilirubin (0.1-1.5) mg/dL AST (12-35) U/L ALT (4-35) U/L Alkaline Phosphatase (40-150) U/L Total Creatine Kinase (41-117) U/L C-Reactive Protein (0.5-1.0) mg/dL Total Protein (6.0-8.3) g/dL Albumin (3.3-5.0) g/dL Procalcitonin (<0.50) ng/mL TSH (0.270-4.20) uIU/mL Urine Color (Yellow) Urine Appearance (Clear) Urine pH (5.0-8.5) Ur Specific [place] (1.000-1.030) Urine Protein (Negative) Urine Glucose (UA) (Negative) Urine Ketones (Negative) Urine Blood (Negative) Urine Nitrite (Negative) Urine Bilirubin (Negative) Urine Urobilinogen (0.2-1.0) Ur Leukocyte Esterase (Negative) Urine RBC (0-2) Urine WBC (0-5) Ur Squamous Epith Cells (None-Few) Urine Bacteria (None) Urine Yeast (None) Urine Opiates Screen (Negative) Ur Oxycodone Screen (Negative) Urine Methadone Screen (Negative) Ur Barbiturates Screen (Negative) U Tricyclic Antidepress (Negative) Ur Phencyclidine Scrn (Negative) Ur Amphetamines Screen (Negative) U Methamphetamines Scrn (Negative) U Benzodiazepines Scrn (Negative) Urine Cocaine Screen (Negative) U Marijuana (THC) Screen (Negative) Ur Drug Screen Comment Ethyl Alcohol (0.01-0.03) % SARS-CoV-2 (PCR) Negative SARS-CoV-2 (Negative) Influenza Type A (PCR) Negative PCR FLU A (Negative) Influenza Type B (PCR) Negative PCR FLU B (Negative) RSV (PCR) Negative PCR RSV (Negative) Lab Acknowledgement Test Added POC Troponin I (0.01-0.04) ng/ml 02/07/24 02/08/24 Range/Units Unknown 06:00 WBC 15.77 H (4.50-11.00) K/uL RBC 4.25 (4.00-5.20) m/uL Hgb 11.1 L (12.0-16.0) gm/dL Hct 35.9 (33.0-51.0) % MCV 85 (80-100) fL MCH 26 (26-34) pg MCHC 31 L (32-36) gm/dL RDW Coeff of Santos 17.8 H (11.5-15.5) % Plt Count 390 (140-440) K/uL Neut % (Auto) 92.4 H (42.0-72.0) % Lymph % (Auto) 5.3 L (20-44) % [place] % (Auto) 1.5 (0.0-11.0) % Eos % (Auto) 0.0 (0.0-7.0) % Baso % (Auto) 0.2 (0.0-3.0) % Neut # (Auto) 14.60 H (1.7-7.0) K/uL Lymph # (Auto) 0.80 L (0.90-2.90) K/uL [place] # (Auto) 0.20 (0.00-0.90) K/UL Eos # (Auto) 0.00 (0.00-0.50) K/uL Baso # (Auto) 0.00 (0.00-0.30) K/uL Abs Immat Gran (auto) 0.10 (0.00-0.30) K/uL Imm/Tot Granulo (auto) 0.6 % VBG pH 7.386 (7.32-7.43) VBG pCO2 42 (40-50) mmHG VBG pO2 70.6 H (25-47) mmHG VBG HCO3 25 (21-28) mmol/L Sodium 136 (135-149) mmol/L Potassium 4.0 (3.6-5.1) mmol/L Chloride 105 (96-114) mmol/L Carbon Dioxide 24 (20-32) mmol/L Anion Gap 7 (7-15) mEq/L BUN 17 (7-30) mg/dL Creatinine 0.6 (0.5-1.5) mg/dL Estimated Creat Clear 34.38 Estimated GFR 93 ml/min Glucose 147 H (60-115) mg/dL Lactate 0.8 (0.5-1.9) mmol/L Calcium 9.0 (8.4-10.6) mg/dL Magnesium (1.5-2.6) mg/dL Total Bilirubin 0.5 (0.1-1.5) mg/dL AST 18 (12-35) U/L ALT 10 (4-35) U/L Alkaline Phosphatase 64 (40-150) U/L Total Creatine Kinase (41-117) U/L C-Reactive Protein 4.4 H (0.5-1.0) mg/dL Total Protein 7.1 (6.0-8.3) g/dL Albumin 3.9 (3.3-5.0) g/dL Procalcitonin (<0.50) ng/mL TSH (0.270-4.20) uIU/mL Urine Color Yellow (Yellow) Urine Appearance Cloudy A (Clear) Urine pH 5.5 (5.0-8.5) Ur Specific [place] 1.025 (1.000-1.030) Urine Protein 2+ A (Negative) Urine Glucose (UA) Negative (Negative) Urine Ketones Negative (Negative) Urine Blood 2+ A (Negative) Urine Nitrite Positive A (Negative) Urine Bilirubin Negative (Negative) Urine Urobilinogen 0.2 (0.2-1.0) Ur Leukocyte Esterase 1+ A (Negative) Urine RBC 0-2 (0-2) Urine WBC 10-25 A (0-5) Ur Squamous Epith Cells Many A (None-Few) Urine Bacteria Many A (None) Urine Yeast Few A (None) Urine Opiates Screen Negative (Negative) Ur Oxycodone Screen POSITIVE A (Negative) Urine Methadone Screen Negative (Negative) Ur Barbiturates Screen Negative (Negative) U Tricyclic Antidepress Negative (Negative) Ur Phencyclidine Scrn Negative (Negative) Ur Amphetamines Screen Negative (Negative) U Methamphetamines Scrn Negative (Negative) U Benzodiazepines Scrn POSITIVE A (Negative) Urine Cocaine Screen Negative (Negative) U Marijuana (THC) Screen Negative (Negative) Ur Drug Screen Comment See Note Ethyl Alcohol (0.01-0.03) % SARS-CoV-2 (PCR) (Negative) Influenza Type A (PCR) (Negative) Influenza Type B (PCR) (Negative) RSV (PCR) (Negative) Lab Acknowledgement POC Troponin I (0.01-0.04) ng/ml <Huan Marcos MD - Last Filed: 02/07/24 11:29> Imaging Data CT scan - head: Attestation: I have reviewed the pertinent imaging results. <Hilda Zarco MD - Last Filed: 02/08/24 23:55> My impression: Degenerative changes, a little more than would be expected for age but no signs of acute bleed, skull fracture or mass <Hilda Zarco MD - Last Filed: 02/08/24 23:55> Radiologist's impression: IMPRESSION: Normal head CT. <Hilda Zarco MD - Last Filed: 02/08/24 23:55> Chest x-ray: Attestation: I have reviewed the pertinent imaging results. <Hilda Zarco MD - Last Filed: 02/08/24 23:55> My impression: Bilaterally hazy, suspicious for viral process. <Hilda Zarco MD - Last Filed: 02/08/24 23:55> Radiologist's impression: IMPRESSION: Fine interstitial opacities may reflect a viral or atypical pneumonia. <Hilda Zarco MD - Last Filed: 02/08/24 23:55> ECG Data Attestation: I personally reviewed and interpreted this ECG as follows: <Hilda Zarco MD - Last Filed: 02/08/24 23:55> Interpretation: Normal sinus rhythm rate of 78. Normal intervals and axis. No significant ST or T-wave abnormalities. Normal R-wave progression. Normal EKG. <Hilda Zarco MD - Last Filed: 02/08/24 23:55> Discharge Plan Discharge Clinical Impression: Acute delirium, Other viral pneumonia, Weakness, Urinary tract infection <Hilda Zarco MD - Last Filed: 02/08/24 23:55> Patient Disposition: Admitted As Observation <Hilda Zarco MD - Last Filed: 02/08/24 23:55> Condition: Unchanged <Hilda Zarco MD - Last Filed: 02/08/24 23:55> Activity Level: Activity as Tolerated <Hilda Zarco MD - Last Filed: 02/08/24 23:55> Activity as Tolerated <Huan Marcos MD - Last Filed: 02/07/24 11:29> Discharge Diet: Regular <Hilda Zarco MD - Last Filed: 02/08/24 23:55> Regular <Huan Marcos MD - Last Filed: 02/07/24 11:29>
[2024-02-07 06:40] LABS: HCO3 VBG 25 mmol/L (21-28); Lactate* 2.2 mmol/L (0.5-1.9); PCO2 VBG 50 mmHG (40-50); PO2 VBG < 30.1 mmHG (25-47); pH VBG 7.309 (7.32-7.43)
[2024-02-07 06:43] LABS: Basophils Percent Auto 0.2 % (0.0-3.0); Eosinophils Percent Auto 0.5 % (0.0-7.0); Hematocrit 40.4 % (33.0-51.0); Hemoglobin* 12.3 gm/dL (12.0-16.0); Immature Granulocytes Pct Auto 1.5 %; Mean Corpuscular HGB Conc 30 gm/dL (32-36); Mean Corpuscular Hemoglobin 26 pg (26-34); Mean Corpuscular Volume 85 fL (80-100); Monocytes Percent Auto 6.5 % (0.0-11.0); Neutrophils Percent Auto 82.3 % (42.0-72.0); Platelet Count* 402 K/uL (140-440); RDW Coefficient of Variation % 17.9 % (11.5-15.5); Red Blood Count 4.75 m/uL (4.00-5.20); White Blood Count* 13.67 K/uL (4.50-11.00)
[2024-02-07 06:45] LABS: Slide Review Reflex No
--- NOTE | 2024-02-07 06:50 | CRLHL7_ITS ---
For Patients: As a result of the Cures Act, medical imaging exams and procedure reports are released immediately into your electronic medical record. You may view this report before your referring provider. If you have questions, please contact your health care provider. INDICATION: Altered mental status, elevated white blood cell count COMPARISON: 05/09/2022 TECHNIQUE: PA and lateral 2 view chest. FINDINGS: Lung volumes are moderate. Diffuse fine interstitial opacities with mildly prominent pulmonary vascular markings. No peripheral septal lines. No pulmonary edema. No pleural effusion. No pneumothorax. No pneumomediastinum. Normal cardiomediastinal silhouette. Few atherosclerotic vascular calcifications. Bones: No acute findings.. IMPRESSION: Fine interstitial opacities may reflect a viral or atypical pneumonia. Dictated by Diane Peguero MD @ 02/07/2024 7:24:31 AM (Electronically Signed)
[2024-02-07 06:58] LABS: Albumin* 4.6 g/dL (3.3-5.0); Chloride* 105 mmol/L (96-114); Sodium* 138 mmol/L (135-149)
[2024-02-07 06:59] LABS: Potassium* 3.5 mmol/L (3.6-5.1)
[2024-02-07 07:01] LABS: Anion Gap 11 mEq/L (7-15); Bilirubin Total* 0.3 mg/dL (0.1-1.5); Carbon Dioxide* 22 mmol/L (20-32); Creatinine* 0.8 mg/dL (0.5-1.5); Estimated Glomerular Filt Rate 76 ml/min
[2024-02-07 07:02] LABS: Alanine Aminotransferase* 13 U/L (4-35); Alkaline Phosphatase* 74 U/L (40-150); Aspartate Amino Transferase* 19 U/L (12-35); Blood Urea Nitrogen* 16 mg/dL (7-30); Calcium* 9.7 mg/dL (8.4-10.6); Glucose* 147 mg/dL (60-115); Total Protein* 8.1 g/dL (6.0-8.3)
[2024-02-07 07:07] LABS: C Reactive Protein* < 0.5 mg/dL (0.5-1.0); Ethanol* < 0.01 % (0.01-0.03)
[2024-02-07 07:18] LABS: Procalcitonin* 0.06 ng/mL (<0.50)
[2024-02-07] MEDS: 0.9 % SODIUM CHLORIDE 500 ML 500 ML IV (07:28)
[2024-02-07 08:04] LABS: Appearance Urine Cloudy (Clear); Bilirubin Urine Negative (Negative); Blood Urine 2+ (Negative); Color Urine Yellow (Yellow); Glucose Urine Negative (Negative); Ketones Urine Negative (Negative); Leukocyte Esterase Urine 1+ (Negative); Nitrite Urine Positive (Negative); Protein Urine 2+ (Negative); Specific Gravity Urine 1.025 (1.000-1.030); Urobilinogen Urine 0.2 (0.2-1.0); pH Urine 5.5 (5.0-8.5)
[2024-02-07 08:13] LABS: Amphetamine Screen Urine Negative (Negative); Barbiturate Screen Urine Negative (Negative); Benzodiazepines Screen Urine POSITIVE (Negative); Cannabinoid Screen Urine Negative (Negative); Cocaine Screen Urine Negative (Negative); Methadone Screen Urine Negative (Negative); Methamphetamines Screen Urine Negative (Negative); Opiate Screen Urine Negative (Negative); Oxycodone Screen Urine POSITIVE (Negative); Phencyclidine Screen Urine Negative (Negative); Tricyclic Antidepressant Urine Negative (Negative)
[2024-02-07 08:15] LABS: PCR FLU A Negative PCR FLU A (Negative); PCR FLU B Negative PCR FLU B (Negative); PCR RSV Negative PCR RSV (Negative); SARS PCR* Negative SARS-CoV-2 (Negative)
[2024-02-07 08:19] LABS: RBC Urine 0-2 (0-2)
[2024-02-07 08:20] LABS: Bacteria Urine Many; Squamous Epithelial Cell Urine Many (None-Few)
[2024-02-07 08:30] LABS: Creatine Kinase* 47 U/L (41-117)
[2024-02-07] MEDS: cefTRIAXone 1 GM in 0.9 % SODIUM CHLORIDE Mini-bag 100 ML IVPB (11:19)
[2024-02-07] MEDS: AZITHROMYCIN 250 MG TABLET 500 MG PO (11:20)
--- NOTE | 2024-02-07 12:44 | P.IMHP_ITS ---
Hospitalist- H&P: MONSE History of Present Illness Date Seen: 02/07/24 Chief complaint: Dizziness Narrative: Rach Cox is a 78 year old female presents to the emergency department for evaluation of altered mental status, brought in by EMS. Patient reports that she when out to smoke at around midnight. She had taken 3 oxycodone tablets which is not typical for her. She reports she was having right shoulder pain which is an ongoing issue and is not due to any new injury or trauma. He was frustrated by the pain and took an old supply of the medication. She denies any alcohol intake tonight but EMS reports that she has been known to be a drinker in the past. She reports that while she was out having a smoke, she started to feel weak. Her legs started to buckle under her so she went down to the ground. She crawled forward towards the door of the apartment building but was not able to reach it. She says that she did not think she could get up so she just sat on the ground all night. It is unclear if she lost consciousness but she really does not think so. She said that she did not take her phone outside with her so she could not call for help. She has not the least bit distressed by this. She did not attempt to crawl or yell for help from anyone else. One of her neighbor saw her at about 530 in the morning and went to check on her. She reported that she was awakened was able to talk with them but they felt like she seemed ?off? so they called EMS. EMS reports that her house was clean, well kept. Her medications were pretty organized. When they asked about the oxycodone from her story she explained that it is kept differently in a separate place because she does not normally take it. The rationale seemed pretty clear. They reported that she was slurring her words a bit her and just seemed confused about some things. She was moving all of her extremities and was not reporting any focal neurological deficits. She had a coat on appropriately when she was found outside like she had gone outside deliberately. Patient denies any psychiatric issues, denies any recent illness. No fever. Did not fall and hit her head. When I ask her what she think happen tonight, she blames the oxycodone. She has no other acute concerns today. A code stroke was called prior to arrival. Patient reports longstanding problems with speech. She has a hesitant speech with some problems with articulation which she says is been going on for years. She has not had a stroke and she says is not really different now than baseline. 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 This is been evaluated by Neurology after a fall last year where she was transfer to [facility] [place] and then went to a senior living for some rehab. At that time they had offered her some genetic testing to see if there was a genetic cause for her to ataxia. The initial suspicion was that this was related to chronic alcohol abuse. She has not been drinking since that time. She uses a walker and was using a last night when she fell. Ten days ago she was prescribed Percocet 5/325 to take 1 tab at bedtime for shoulder pain there was interfering with sleep. She has also been prescribed diazepam to use p.r.n. for anxiety. She takes ibuprofen 600 mg 3 times a day for chronic shoulder pain. She reports no injury with her fall. She denies symptoms of illness including cough, sore throat, cold symptoms, new dyspnea, fever, abdominal pain, vomiting, diarrhea, new urinary problems. She does report chronic urinary frequency for years. No dysuria. Review of Systems Narrative: Review of systems is negative except as noted above [facility] Medical History (Updated 02/07/24 @ 13:09 by Andre Singer MD) Obstructive sleep apnea ?G47.33 - Obstructive sleep apnea (adult) (pediatric) (ICD-10) COPD (chronic obstructive pulmonary disease) ?J44.9 - Chronic obstructive pulmonary disease, unspecified (ICD-10) Tobacco use ?Z72.0 - Tobacco use (ICD-10) Other viral pneumonia ?J12.89 - Other viral pneumonia (ICD-10) Polypharmacy ?Z79.899 - Other alf (current) drug therapy (ICD-10) Essential hypertension ?I10 - Essential (primary) hypertension (ICD-10) Carotid artery stenosis ?I65.29 - Occlusion and stenosis of unspecified carotid artery (ICD-10) GERD (gastroesophageal reflux disease) ?K21.9 - Gastro-esophageal reflux disease without esophagitis (ICD-10) Speech disturbance ?R47.9 - Unspecified speech disturbances (ICD-10) Psoriasis ?L40.9 - Psoriasis, unspecified (ICD-10) Do not resuscitate status ?Z66 - Do not resuscitate (ICD-10) Otitis media, acute mucoid ?H65.119 - Acute and subacute allergic otitis media (mucoid) (sanguinous) (serous), unspecified ear (ICD-10) Pain ?R52 - Pain, unspecified (ICD-10) Nicotine dependence ?F17.200 - Nicotine dependence, unspecified, uncomplicated (ICD-10) Mammogram declined ?Z53.20 - Procedure and treatment not carried out because of patient's decision for unspecified reasons (ICD-10) Colon cancer screening declined ?Z53.20 - Procedure and treatment not carried out because of patient's decisi on for unspecified reasons (ICD-10) Frailty syndrome in geriatric patient ?R54 - Age-related physical debility (ICD-10) Ataxia ?R27.0 - Ataxia, unspecified (ICD-10) Acute delirium ?R41.0 - Disorientation, unspecified (ICD-10) Cyst of face Greater trochanteric bursitis of right hip ?M70.61 - Trochanteric bursitis, right hip (ICD-10) Left hand pain ?M79.642 - Pain in left hand (ICD-10) Left carpal tunnel syndrome ?G56.02 - Carpal tunnel syndrome, left upper limb (ICD-10) Right carpal tunnel syndrome ?G56.01 - Carpal tunnel syndrome, right upper limb (ICD-10) Right rotator cuff tear arthropathy ?M75.101 - Unspecified rotator cuff tear or rupture of right shoulder, not specified as traumatic (ICD-10) ?M12.811 - Other specific arthropathies, not elsewhere classified, right shoulder (ICD-10) Osteoarthritis of right shoulder ?M19.011 - Primary osteoarthritis, right shoulder (ICD-10) Alcoholism ?F10.20 - Alcohol dependence, uncomplicated (ICD-10) History of diverticulitis ?Z87.19 - Personal history of other diseases of the digestive system (ICD-10) Surgical History History of phacoemulsification of cataract of left eye with intraocular lens implantation (06/01/19) ?Z98.42 - Cataract extraction status, left eye (ICD-10) ?Z96.1 - Presence of intraocular lens (ICD-10) H/O foot surgery (10/19/14) ?Z98.890 - Other specified postprocedural states (ICD-10) Social History (Updated 02/07/24 @ 13:03 by Andre Singer MD) Narrative: SOCIAL HISTORY: Single and retired. She has a daughter, Margo Cox, and granddaughter in town. She reports she is not close to her daughter but would choose her daughter as healthcare power of claim attorney in an emergency. Code status is DNR DNI. She does not want any heroic interventions. HABITS: Not sexually active. Walking, stationary bike, resistance 5x/week. She smokes 4 cigarettes per day. No alcohol since Apr 2022. Prev 7 shots per day. No recreational drug use. What is your current living situation?: I presently have a place to live Problems where you live: no known problems Problems where you live details: N/A In the past 12 months, utilities in danger of being shut off: no In past 12 months, lack of transportation kept you from medical appts, meetings, work, or getting things needed for daily living: no In the past 12 mos, have been you worried that your food would run out before you had money to buy more?: never true In the past 12 mos, the food you bought just didn't last and you didn't have money to buy more?: never true Smoking Status: Current every day smoker What tobacco products do you use: cigarettes Smoking packs per day: 1 Smoking cigarettes per day: 20.0 Do you use any of these nicotine containing products: None Second hand tobacco smoke exposure: No How often do you have a drink containing alcohol: 4 or more times a week Alcoh ol type: hard liquor How many standard drinks containing alcohol do you have on a typical day: 3 or 4 How often do you have six or more drinks on one occasion: Never AUDIT-C Alcohol total score: 5 Non-prescribed substance use: denies use Caffeine: Yes (soda daily) How often does anyone, including family, friends and others, physically hurt you : never How often does anyone, including family, friends and others, insult or talk down to you: never How often does anyone, including family, friends and others, threaten you with harm: never How often does anyone, including family, friends and others, scream or curse at you: never Little interest or pleasure in doing things: not at all Feeling down, depressed, or hopeless: not at all Are you using contraception or practicing any form of control: No service: No Meds Home Medications and Allergies Home Medications ?Medication ?Instructions ?Recorded ?Confirmed ?Type amlodipine 2.5 mg tablet 2.5 mg PO DAILY 02/07/24 02/07/24 History atenolol 100 mg tablet 100 mg PO DAILY 02/07/24 02/07/24 History cholecalciferol (vitamin D3) 25 25 mcg PO DAILY 02/07/24 02/07/24 History mcg (1,000 unit) capsule diazepam 5 mg tablet 2.5 mg PO DAILY PRN anxiety 02/07/24 02/07/24 History folic acid 1 mg tablet 1 mg PO DAILY 02/07/24 02/07/24 History omeprazole 20 mg capsule,delayed 20 mg PO DAILY 02/07/24 02/07/24 History release oxycodone-acetaminophen 5 mg-325 1 tab PO HS PRN pain 02/07/24 02/07/24 History mg tablet psyllium husk (with sugar) 3.4 1 tbsp PO DAILY 02/07/24 02/07/24 History gram/12 gram oral powder (Metamucil (with sugar)) rosuvastatin 10 mg tablet 10 mg PO DAILY 02/07/24 02/07/24 History thiamine HCl (vitamin B1) 100 mg 100 mg PO DAILY 02/07/24 02/07/24 History tablet Allergies Allergy/AdvReac Type Severity Reaction Status Date / Time lisinopril Allergy Mild Cough Verified 01/28/24 15:24 Exam Narrative: Exam Narrative: She is alert and appears in no obvious distress breathing oxygen per nasal cannula. Head is normal without evidence of trauma. Eyes normal. Oropharynx w ith small airway. Neck is supple with no adenopathy. Prominent thyroid gland. Respirations with diminished breath sounds throughout all lung burkett. She has coarse rhonchi in the lung bases bilaterally but relatively clear in the upper lung burkett. Cardiovascular: S1, S2, distant regular rate and rhythm. Abdomen: Bowel sounds active. Abdomen is soft without tenderness or mass. Extremities without edema. She has diminished but intact pedal pulses. She moves all 4 extremities well. She has mild ataxia with [id number] testing Const: Vital Signs, click to edit/add: Vital Signs - 24 hr 02/07/24 06:35 02/07/24 06:39 02/07/24 06:47 Temperature Pulse Rate 87 85 76 Pulse Rate [Pulse Oximeter] Respiratory Rate Blood Pressure 132/64 111/65 Blood Pressure [Ri ght Upper Arm] Pulse Oximetry 92 88 89 Oxygen Delivery Me thod Oxygen Flow Rate 02/07/24 06:51 02/07/24 07:03 02/07/24 07:05 Temperature Pulse Rate 74 76 71 Pulse Rate [Pulse Oximeter] Respiratory Rate Blood Pressure 111/67 Blood Pressure [Ri ght Upper Arm] Pulse Oximetry 98 98 97 Oxygen Delivery Me thod Oxygen Flow Rate 02/07/24 07:08 02/07/24 07:08 02/07/24 07:17 Temperature 97 F L Pulse Rate 75 71 Pulse Rate [Pulse Oximeter] 88 Respiratory Rate 16 Blood Pressure 126/65 126/67 Blood Pressure [Ri ght Upper Arm] 150/66 H Pulse Oximetry 93 99 99 Oxygen Delivery Me thod Room Air Oxygen Flow Rate 02/07/24 07:30 02/07/24 07:31 02/07/24 08:00 Temperature Pulse Rate 79 73 75 Pulse Rate [Pulse Oximeter] Respiratory Rate Blood Pressure 135/75 Blood Pressure [Ri ght Upper Arm] Pulse Oximetry 99 98 96 Oxygen Delivery Me thod Oxygen Flow Rate 02/07/24 08:02 02/07/24 08:03 02/07/24 08:30 Temperature Pulse Rate 73 72 77 Pulse Rate [Pulse Oximeter] Respiratory Rate Blood Pressure 136/58 L Blood Pressure [Ri ght Upper Arm] Pulse Oximetry 97 97 98 Oxygen Delivery Me thod Oxygen Flow Rate 02/07/24 08:32 02/07/24 09:00 02/07/24 09:02 Temperature Pulse Rate 82 72 73 Pulse Rate [Pulse Oximeter] Respiratory Rate Blood Pressure 117/62 108/62 Blood Pressure [Ri ght Upper Arm] Pulse Oximetry 96 95 96 Oxygen Delivery Me thod Oxygen Flow Rate 02/07/24 09:30 02/07/24 09:31 02/07/24 09:32 Temperature Pulse Rate 76 73 73 Pulse Rate [Pulse Oximeter] Respiratory Rate Blood Pressure 100/62 Blood Pressure [Ri ght Upper Arm] Pulse Oximetry 94 94 94 Oxygen Delivery Me thod Oxygen Flow Rate 02/07/24 10:02 02/07/24 10:25 02/07/24 10:28 Temperature Pulse Rate 101 H Pulse Rate [Pulse Oximeter] Respiratory Rate Blood Pressure 108/62 Blood Pressure [Ri ght Upper Arm] Pulse Oximetry 84 L 87 L Oxygen Delivery Me thod Room Air Oxygen Flow Rate 02/07/24 10:30 02/07/24 10:34 02/07/24 10:35 Temperature Pulse Rate 86 78 Pulse Rate [Pulse Oximeter] Respiratory Rate Blood Pressure Blood Pressure [Ri ght Upper Arm] Pulse Oximetry 94 84 L 94 Oxygen Delivery Me thod Room Air Oxygen Flow Rate 2 02/07/24 11:00 02/07/24 11:05 02/07/24 11:26 Temperature Pulse Rate 72 71 100 Pulse Rate [Pulse Oximeter] Respiratory Rate Blood Pressure 129/76 Blood Pressure [Ri ght Upper Arm] Pulse Oximetry 97 96 92 Oxygen Delivery Me thod Oxygen Flow Rate 02/07/24 11:27 02/07/24 11:32 02/07/24 11:33 Temperature Pulse Rate 106 H 87 Pulse Rate [Pulse Oximeter] Respiratory Rate Blood Pressure 144/78 H Blood Pressure [Ri ght Upper Arm] Pulse Oximetry 93 92 Oxygen Delivery Me thod Oxygen Flow Rate Documenting provider has reviewed patient's vital signs: yes Hospitalist - H&P: Result Labs Labs: Short CBC 02/07/24 Range/Units 06:35 WBC 13.67 H (4.50-11.00) K/uL Hgb 12.3 (12.0-16.0) gm/dL Hct 40.4 (33.0-51.0) % Plt Count 402 (140-440) K/uL [facility] 02/07/24 06:35 Sodium 138 Potassium 3.5 L Chloride 105 Carbon Dioxide 22 BUN 16 Creatinine 0.8 Glucose 147 H Calcium 9.7 Cardiac Enzymes 02/07/24 Range/Units 06:35 Total Creatine Kinase 47 (41-117) U/L Liver Function 02/07/24 Range/Units 06:35 Total Bilirubin 0.3 (0.1-1.5) mg/dL AST 19 (12-35) U/L ALT 13 (4-35) U/L Alkaline Phosphatase 74 (40-150) U/L Albumin 4.6 (3.3-5.0) g/dL Urine 02/07/24 Range/Units Unknown Urine Color Yellow (Yellow) Urine Appearance Cloudy A (Clear) Urine pH 5.5 (5.0-8.5) Ur Specific [place] 1.025 (1.000-1.030) Urine Protein 2+ A (Negative) Urine Glucose (UA) Negative (Negative) Imaging CT scan - head: Radiologist's impression: INDICATION: Altered mental status, stroke. COMPARISON: Brain MR 11/11/2022 TECHNIQUE: CT of the brain / head without intravenous contrast. Multiplanar axial, coronal, and sagittal reformats were reconstructed. FINDINGS: No intracranial hemorrhage. Normal appearance of the white matter. No acute or subacute cortically based infarct. Scattered white matter hypodensities may be related to chronic microvascular ischemia. No mass or mass effect. Normal ventricles. No skull fractures. No worrisome focal bone lesion. IMPRESSION: Normal head CT. Please note that all CT scans at this facility use dose modulation, iterative reconstruction, and/or weight-based dosing when appropriate to reduce radiation dose to as low as reasonably achievable. Dictated by Diane Peguero MD @ 02/07/2024 6:43:40 AM ----- ADDENDUM ----- Case discussed with Dr. Zarco at 7:09 a.m. on 02/07/2024. Dictated by Diane Peguero MD @ Feb 07 2024 8:32AM (Electronically Signed) For Patients: As a result of the Century Cures Act, medical imaging exams and procedure reports are released immediately into your electronic medical record. You may view this report before your referring provider. If you have questions, please contact your health care provider. INDICATION: Altered mental status, stroke. COMPARISON: Brain MR 11/11/2022 TECHNIQUE: CT of the brain / head without intravenous contrast. Multiplanar axial, coronal, and sagittal reformats were reconstructed. FINDINGS: No intracranial hemorrhage. Normal appearance of the white matter. No acute or subacute cortically based infarct. Scattered white matter hypodensities may be related to chronic microvascular ischemia. No mass or mass effect. Normal ventricles. No skull fractures. No worrisome focal bone lesion. IMPRESSION: Normal head CT. Chest x-ray: Radiologist's impression: INDICATION: Altered mental status, elevated white blood cell count COMPARISON: 05/09/2022 TECHNIQUE: PA and lateral 2 view chest. FINDINGS: Lung volumes are moderate. Diffuse fine interstitial opacities with mildly prominent pulmonary vascular markings. No peripheral septal lines. No pulmonary edema. No pleural effusion. No pneumothorax. No pneumomediastinum. Normal cardiomediastinal silhouette. Few atherosclerotic vascular calcifications. Bones: No acute findings.. IMPRESSION: Fine interstitial opacities may reflect a viral or atypical pneumonia. Assessment and Plan Assessment and plan (1) Hypoxia: Problem comment: Likely multifactorial including COPD, pneumonia, undiagnosed sleep apnea. Status: Acute (2) Pneumonia: Problem comment: Ceftriaxone plus a azithromycin Status: Acute (3) Altered mental status associated with intoxication: Problem comment: Patient had altered mental status during the night likely primarily due to excessive oxycodone plus diazepam. Status: Acute (4) Polypharmacy: Problem comment: Frail elderly lady with a history of alcohol use disorder taking both diazepam and oxycodone puts her at risk for falls Status: Acute (5) COPD (chronic obstructive pulmonary disease): Problem comment: Has not had formal diagnosis or evaluation for COPD but clinically appears to have COPD on this admission. 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 (in-patient consultation) Status: Acute (12) Speech disturbance: Problem comment: Speech is hesitant with mild problems with articulations/fluency Status: Acute (13) Alcoholism: Problem comment: Abstinent for 1 and half years, since June 2022 Status: Acute (14) Do not resuscitate status: Status: Acute (15) Pain: Problem comment: She has chronic pain for which she takes moderate dose of ibuprofen as well as oxycodone Status: Acute (16) Obstructive sleep apnea: Problem comment: Patient think she has been told that she has sleep apnea in the past but has not had testing or treatment Status: Acute Plan 78-year-old female admitted to the hospital after falling outside her home last night and spending the night outside. Found with altered mental status and weakness. She has had clinical improvement since being in the emergency de partment. Is noted however to have abnormal chest x-ray and hypoxia suggestive of a atypical pneumonia. She is admitted to the hospital for evaluation treatment of that as well as her altered mental status and her chronic and possibly acute neurologic and functional disabilities. Total Time Spent Total Time Spent: Total time spent is 80 minutes in coordination of care discussing with patient and other providers ongoing evaluation management of hypoxia, altered mental status, UTI, pneumonia.
[2024-02-07 12:56] LABS: Magnesium* 2.1 mg/dL (1.5-2.6)
[2024-02-07] MEDS: ENOXAPARIN 30 MG/0.3ML INJ SUBCUT (13:08)
[2024-02-07] MEDS: IPRAT-ALBUT 0.5-2.5 MG/3 ML NEB 1 NEB IH ×3 (13:08→21:19)
--- NOTE | 2024-02-07 16:10 | RESP.RT ---
Pt seen. Per EDDIE she was found with vomit on her. Pt very sleepy, seems off in her word finding to answer questions. Shakes head yes and no, difficulty getting a sentence out. BBS very coarse. SpO2 79% on 1L. IS (1.5 L !) multiple times with deep breathing and coughing. Pt oxygen increased to 2.5 L to get SPO2 of 92% possibility is there that she may have aspirated. She acknowledges she has been told she may have sleep apnea but does not want to be tested. If pt oxygen needs increase, notify provider. Aggressive pulmonary hygiene, asking her to cough on demand.
[2024-02-07] MEDS: ONDANSETRON 2 MG/ML inj 4 MG IVP (17:18)
--- NOTE | 2024-02-07 17:34 | P.IMPN_ITS ---
Progress Note: A&P Assessment and plan (1) Acute hypoxemic respiratory failure: Problem details: - swab for COVID, influenza a and B, and RSV are negative. - Likely multifactorial including COPD, pneumonia, undiagnosed sleep apnea. - continue oxygen supplementation, keep sats between 88 and 90% Status: Acute (2) Pneumonia: Problem details: - unclear if it is viral or bacterial or aspiration - continue Ceftriaxone plus azithromycin Status: Acute (3) COPD (chronic obstructive pulmonary disease): Problem details: Has not had formal diagnosis or evaluation for COPD but clinically appears to have COPD on this admission. Treat with nebulizers. - I am adding prednisone this evening as well. Status: Acute (4) Altered mental status associated with intoxication: Problem details: Patient had altered mental status during the night likely primarily due to excessive oxycodone plus diazepam. 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 (in-patient consultation) Status: Acute (12) Speech disturbance: Problem details: Speech is hesitant with mild problems with articulations/fluency Status: Acute (13) Alcoholism: Problem details: Abstinent for 1 and half years, since June 2022 Status: Acute (14) Do not resuscitate status: Status: Acute (15) Pain: Problem details: She has chronic pain for which she takes moderate dose of ibuprofen as well as oxycodone Status: Acute (16) Obstructive sleep apnea: Problem details: Patient think she has been told that she has sleep apnea in the past but has not had testing or treatment Status: Acute Subjective Time Seen by Provider: 17:25 Date Seen: 02/07/24 Interval history: Nurse notified me that Rach is requiring a little more oxygen via nasal cannula this afternoon. Apparently when respiratory went in there earlier, there was also a question of possibly a small amount of emesis on her gown as well. This is not clear however. She is noted to be spitting up a lot of phlegm this afternoon. Rach's daughter is also in the room with her this afternoon. Rach tells me that the neb is going well and she does not feel any worse than she did earlier. Exam Narrative: Exam Narrative: General: Mild respiratory distress. Receiving nebulizer. Awake, alert, oriented to self, place, and situation. She thought it was Thursday, but it is Thursday. No pallor. No jaundice. Oropharynx: Clear. Mucous membranes moist. Cardiovascular: Regular rate and rhythm. No murmurs, gallops, or rubs. Respiratory: Decreased air movement. Coarse rhonchi in both bases, no crackles or wheezes. Extremities: No pedal edema. Const: Vital Signs, click to edit/add: Vital Signs - 24 hr 02/07/24 06:35 02/07/24 06:39 02/07/24 06:47 Temperature Pulse Rate 87 85 76 Pulse Rate [Apical ] Pulse Rate [Pulse Oximeter] Respiratory Rate Blood Pressure 132/64 111/65 Blood Pressure [Le ft Arm] Blood Pressure [Ri ght Arm] Blood Pressure [Ri ght Upper Arm] Pulse Oximetry 92 88 89 Oxygen Delivery Me thod Oxygen Flow Rate 02/07/24 06:51 02/07/24 07:03 02/07/24 07:05 Temperature Pulse Rate 74 76 71 Pulse Rate [Apical ] Pulse Rate [Pulse Oximeter] Respiratory Rate Blood Pressure 111/67 Blood Pressure [Le ft Arm] Blood Pressure [Ri ght Arm] Blood Pressure [Ri ght Upper Arm] Pulse Oximetry 98 98 97 Oxygen Delivery Me thod Oxygen Flow Rate 02/07/24 07:08 02/07/24 07:08 02/07/24 07:17 Temperature 97 F L Pulse Rate 75 71 Pulse Rate [Apical ] Pulse Rate [Pulse Oximeter] 88 Respiratory Rate 16 Blood Pressure 126/65 126/67 Blood Pressure [Le ft Arm] Blood Pressure [Ri ght Arm] Blood Pressure [Ri ght Upper Arm] 150/66 H Pulse Oximetry 93 99 99 Oxygen Delivery Me thod Room Air Oxygen Flow Rate 02/07/24 07:30 02/07/24 07:31 02/07/24 08:00 Temperature Pulse Rate 79 73 75 Pulse Rate [Apical ] Pulse Rate [Pulse Oximeter] Respiratory Rate Blood Pressure 135/75 Blood Pressure [Le ft Arm] Blood Pressure [Ri ght Arm] Blood Pressure [Ri ght Upper Arm] Pulse Oximetry 99 98 96 Oxygen Delivery Me thod Oxygen Flow Rate 02/07/24 08:02 02/07/24 08:03 02/07/24 08:30 Temperature Pulse Rate 73 72 77 Pulse Rate [Apical ] Pulse Rate [Pulse Oximeter] Respiratory Rate Blood Pressure 136/58 L Blood Pressure [Le ft Arm] Blood Pressure [Ri ght Arm] Blood Pressure [Ri ght Upper Arm] Pulse Oximetry 97 97 98 Oxygen Delivery Me thod Oxygen Flow Rate 02/07/24 08:32 02/07/24 09:00 02/07/24 09:02 Temperature Pulse Rate 82 72 73 Pulse Rate [Apical ] Pulse Rate [Pulse Oximeter] Respiratory Rate Blood Pressure 117/62 108/62 Blood Pressure [Le ft Arm] Blood Pressure [Ri ght Arm] Blood Pressure [Ri ght Upper Arm] Pulse Oximetry 96 95 96 Oxygen Delivery Me thod Oxygen Flow Rate 02/07/24 09:30 02/07/24 09:31 02/07/24 09:32 Temperature Pulse Rate 76 73 73 Pulse Rate [Apical ] Pulse Rate [Pulse Oximeter] Respiratory Rate Blood Pressure 100/62 Blood Pressure [Le ft Arm] Blood Pressure [Ri ght Arm] Blood Pressure [Ri ght Upper Arm] Pulse Oximetry 94 94 94 Oxygen Delivery Me thod Oxygen Flow Rate 02/07/24 10:02 02/07/24 10:25 02/07/24 10:28 Temperature Pulse Rate 101 H Pulse Rate [Apical ] Pulse Rate [Pulse Oximeter] Respiratory Rate Blood Pressure 108/62 Blood Pressure [Le ft Arm] Blood Pressure [Ri ght Arm] Blood Pressure [Ri ght Upper Arm] Pulse Oximetry 84 L 87 L Oxygen Delivery Me thod Room Air Oxygen Flow Rate 02/07/24 10:30 02/07/24 10:34 02/07/24 10:35 Temperature Pulse Rate 86 78 Pulse Rate [Apical ] Pulse Rate [Pulse Oximeter] Respiratory Rate Blood Pressure Blood Pressure [Le ft Arm] Blood Pressure [Ri ght Arm] Blood Pressure [Ri ght Upper Arm] Pulse Oximetry 94 84 L 94 Oxygen Delivery Me thod Room Air Oxygen Flow Rate 2 02/07/24 11:00 02/07/24 11:05 02/07/24 11:26 Temperature Pulse Rate 72 71 100 Pulse Rate [Apical ] Pulse Rate [Pulse Oximeter] Respiratory Rate Blood Pressure 129/76 Blood Pressure [Le ft Arm] Blood Pressure [Ri ght Arm] Blood Pressure [Ri ght Upper Arm] Pulse Oximetry 97 96 92 Oxygen Delivery Me thod Oxygen Flow Rate 02/07/24 11:27 02/07/24 11:32 02/07/24 11:33 Temperature Pulse Rate 106 H 87 Pulse Rate [Apical ] Pulse Rate [Pulse Oximeter] Respiratory Rate Blood Pressure 144/78 H Blood Pressure [Le ft Arm] Blood Pressure [Ri ght Arm] Blood Pressure [Ri ght Upper Arm] Pulse Oximetry 93 92 Oxygen Delivery Me thod Oxygen Flow Rate 02/07/24 12:00 02/07/24 12:00 02/07/24 15:00 Temperature 98 F Pulse Rate Pulse Rate [Apical ] 90 92 Pulse Rate [Pulse Oximeter] Respiratory Rate 22 22 20 Blood Pressure Blood Pressure [Le ft Arm] 138/73 Blood Pressure [Ri ght Arm] Blood Pressure [Ri ght Upper Arm] Pulse Oximetry 80 L Oxygen Delivery Me thod Room Air Oxygen Flow Rate 02/07/24 15:00 Temperature 98.6 F Pulse Rate Pulse Rate [Apical ] 92 Pulse Rate [Pulse Oximeter] Respiratory Rate 20 Blood Pressure Blood Pressure [Le ft Arm] Blood Pressure [Ri ght Arm] 134/64 Blood Pressure [Ri ght Upper Arm] Pulse Oximetry 88 Oxygen Delivery Me thod Nasal Cannula Oxygen Flow Rate 2.5 Labs Labs: Laboratory Results - last 24 hr 02/07/24 02/07/24 02/07/24 06:35 06:35 06:50 WBC 13.67 H RBC 4.75 Hgb 12.3 Hct 40.4 MCV 85 MCH 26 MCHC 30 L RDW Coeff of Santos 17.9 H Plt Count 402 Neut % (Auto) 82.3 H Lymph % (Auto) 9.0 L [place] % (Auto) 6.5 Eos % (Auto) 0.5 Baso % (Auto) 0.2 Neut # (Auto) 11.30 H Lymph # (Auto) 1.20 [place] # (Auto) 0.90 Eos # (Auto) 0.10 Baso # (Auto) 0.00 Abs Immat Gran (auto) 0.20 Imm/Tot Granulo (auto) 1.5 VBG pH 7.309 L VBG pCO2 50 VBG pO2 < 30.1 VBG HCO3 25 Sodium 138 Potassium 3.5 L Chloride 105 Carbon Dioxide 22 Anion Gap 11 BUN 16 Creatinine 0.8 Estimated GFR 76 Glucose 147 H Lactate 2.2 H Calcium 9.7 Magnesium 2.1 Total Bilirubin 0.3 AST 19 ALT 13 Alkaline Phosphatase 74 Total Creatine Kinase 47 C-Reactive Protein < 0.5 L Cancelled Total Protein 8.1 Albumin 4.6 Procalcitonin 0.06 TSH 2.690 Urine Color Urine Appearance Urine pH Ur Specific [place] Urine Protein Urine Glucose (UA) Urine Ketones Urine Blood Urine Nitrite Urine Bilirubin Urine Urobilinogen Ur Leukocyte Esterase Urine RBC Urine WBC Ur Squamous Epith Cells Urine Bacteria Urine Yeast Urine Opiates Screen Ur Oxycodone Screen Urine Methadone Screen Ur Barbiturates Screen U Tricyclic Antidepress Ur Phencyclidine Scrn Ur Amphetamines Screen U Methamphetamines Scrn U Benzodiazepines Scrn Urine Cocaine Screen U Marijuana (THC) Screen Ur Drug Screen Comment Ethyl Alcohol < 0.01 L SARS-CoV-2 (PCR) Influenza Type A (PCR) Influenza Type B (PCR) RSV (PCR) Lab Acknowledgement POC Troponin I 0.00 L 02/07/24 02/07/24 02/07/24 07:31 12:40 Unknown WBC RBC Hgb Hct MCV MCH MCHC RDW Coeff of [place] Plt Count Neut % (Auto) Lymph % (Auto) [place] % (Auto) Eos % (Auto) Baso % (Auto) Neut # (Auto) Lymph # (Auto) [place] # (Auto) Eos # (Auto) Baso # (Auto) Abs Immat Gran (auto) Imm/Tot Granulo (auto) VBG pH VBG pCO2 VBG pO2 VBG HCO3 Sodium Potassium Chloride Carbon Dioxide Anion Gap BUN Creatinine Estimated GFR Glucose Lactate Calcium Magnesium Total Bilirubin AST ALT Alkaline Phosphatase Total Creatine Kinase C-Reactive Protein Total Protein Albumin Procalcitonin TSH Urine Color Yellow Urine Appearance Cloudy A Urine pH 5.5 Ur Specific [place] 1.025 Urine Protein 2+ A Urine Glucose (UA) Negative Urine Ketones Negative Urine Blood 2+ A Urine Nitrite Positive A Urine Bilirubin Negative Urine Urobilinogen 0.2 Ur Leukocyte Esterase 1+ A Urine RBC 0-2 Urine WBC 10-25 A Ur Squamous Epith Cells Many A Urine Bacteria Many A Urine Yeast Few A Urine Opiates Screen Negative Ur Oxycodone Screen POSITIVE A Urine Methadone Screen Negative Ur Barbiturates Screen Negative U Tricyclic Antidepress Negative Ur Phencyclidine Scrn Negative Ur Amphetamines Screen Negative U Methamphetamines Scrn Negative U Benzodiazepines Scrn POSITIVE A Urine Cocaine Screen Negative U Marijuana (THC) Screen Negative Ur Drug Screen Comment See Note Ethyl Alcohol SARS-CoV-2 (PCR) Negative SARS-CoV-2 Influenza Type A (PCR) Negative PCR FLU A Influenza Type B (PCR) Negative PCR FLU B RSV (PCR) Negative PCR RSV Lab Acknowledgement Test Added POC Troponin I Ordering Physician: Hilda Zarco M.D. Date of Service: 02/07/24 Procedure(s): XR chest 2V Accession Number(s): [id number] cc: Sherif Orosco M.D.; Hilda Zarco M.D.~ For Patients: As a result of the Cures Act, medical imaging exams and procedure reports are released immediately into your electronic medical record. You may view this report before your referring provider. If you have questions, please contact your health care provider. INDICATION: Altered mental status, elevated white blood cell count COMPARISON: 05/09/2022 TECHNIQUE: PA and lateral 2 view chest. FINDINGS: Lung volumes are moderate. Diffuse fine interstitial opacities with mildly prominent pulmonary vascular markings. No peripheral septal lines. No pulmonary edema. No pleural effusion. No pneumothorax. No pneumomediastinum. Normal cardiomediastinal silhouette. Few atherosclerotic vascular calcifications. Bones: No acute findings.. IMPRESSION: Fine interstitial opacities may reflect a viral or atypical pneumonia. Dictated by Diane Peguero MD @ 02/07/2024 7:24:31 AM (Electronically Signed)
[2024-02-07 18:00] LABS: HCO3 VBG 26 mmol/L (21-28); PCO2 VBG 52 mmHG (40-50); PO2 VBG < 30.1 mmHG (25-47); pH VBG 7.311 (7.32-7.43)
[2024-02-07 18:01] LABS: Lactate* 1.2 mmol/L (0.5-1.9)
[2024-02-07] MEDS: predniSONE 20 MG TABLET 40 MG PO (18:07)
--- NOTE | 2024-02-07 18:53 | PC.NURSE ---
End of shift [id number]: Pt has been asleep majority of the afternoon/evening. She wakes up for cares and conversation but goes right back to sleep. VSS, afebrile and A&O. She is requiring 1-2.5L NC this afternoon with known history of MARYCHUY & COPD. She is Ax 1-2 up to [facility] d/t weakness & fatigue. Pt had x2 episodes of emesis this afternoon after coughing. Her LS are diminished with coarse crackles & wheezing. She needs encouragement & instruction to really produce a deep cough to clear her secretions. Education with good reception manager given on IS & [employer]. Zofran was given after second emesis & pt was started on daily 40mg PO Prednisone. PIV in left FA is SL and C/D/I. ?
[2024-02-07] MEDS: ACETAMINOPHEN 325 MG TABLET 650 MG PO (19:51)
[2024-02-07] MEDS: SODIUM CHLORIDE 0.9 % (FLUSH) 10 ML SYRINGE 5 ML IVF (21:19)
[2024-02-08 03:00] VITALS: BP 115/63; PULSE 86; RESP 22; TEMP 36.9; O2SAT 92
[2024-02-08 06:34] LABS: HCO3 VBG 25 mmol/L (21-28); Lactate* 0.8 mmol/L (0.5-1.9); PCO2 VBG 42 mmHG (40-50); PO2 VBG 70.6 mmHG (25-47); pH VBG 7.386 (7.32-7.43)
[2024-02-08 06:44] LABS: Basophils Percent Auto 0.2 % (0.0-3.0); Hematocrit 35.9 % (33.0-51.0); Hemoglobin* 11.1 gm/dL (12.0-16.0); Immature Granulocytes Pct Auto 0.6 %; Lymphocytes Percent Auto 5.3 % (20-44); Mean Corpuscular HGB Conc 31 gm/dL (32-36); Mean Corpuscular Hemoglobin 26 pg (26-34); Mean Corpuscular Volume 85 fL (80-100); Monocytes Percent Auto 1.5 % (0.0-11.0); Neutrophils Percent Auto 92.4 % (42.0-72.0); Platelet Count* 390 K/uL (140-440); RDW Coefficient of Variation % 17.8 % (11.5-15.5); Red Blood Count 4.25 m/uL (4.00-5.20); White Blood Count* 15.77 K/uL (4.50-11.00)
--- NOTE | 2024-02-08 06:44 | PC.NURSE ---
SHIFT NOTE -: Pt more alert this AM, still weak and requiring a 2 assist to the BSC but more talkative. Pt had a fever last evening of 101.9, Tylenol given, recheck 100.3 1 hr later. Afebrile for the rest of the night. Denies pain, SOB, CP and N/V. Pt remained on 2L O2 throughout the night with oxygen saturations 89-92%.
--- NOTE | 2024-02-08 06:48 | PC.NURSE ---
SHIFT NOTE -: Pt more alert this AM, still weak and requiring a 2 assist to the BSC but more talkative. Pt had a fever last evening of 101.9, Tylenol given, 1 hr recheck 100.3, afebrile the rest of the night. Pt remained on 2L O2 PNC overnight, oxygen saturations 89-92%. Denies SOB, CP, pain and N/V.
[2024-02-08 07:00] VITALS: O2SAT 94
[2024-02-08 07:25] LABS: Slide Review Reflex No
[2024-02-08 07:32] LABS: Albumin* 3.9 g/dL (3.3-5.0); Chloride* 105 mmol/L (96-114); Sodium* 136 mmol/L (135-149)
[2024-02-08 07:35] LABS: Bilirubin Total* 0.5 mg/dL (0.1-1.5); Creatinine* 0.6 mg/dL (0.5-1.5); Est. Creatinine Clearance* 34.38; Estimated Glomerular Filt Rate 93 ml/min
[2024-02-08 07:36] LABS: Alanine Aminotransferase* 10 U/L (4-35); Alkaline Phosphatase* 64 U/L (40-150); Anion Gap 7 mEq/L (7-15); Aspartate Amino Transferase* 18 U/L (12-35); Blood Urea Nitrogen* 17 mg/dL (7-30); Carbon Dioxide* 24 mmol/L (20-32); Glucose* 147 mg/dL (60-115); Total Protein* 7.1 g/dL (6.0-8.3)
[2024-02-08 07:39] LABS: C Reactive Protein* 4.4 mg/dL (0.5-1.0)
[2024-02-08 07:47] VITALS: BP 126/69; PULSE 94; RESP 18; TEMP 36.8; O2SAT 93
[2024-02-08] MEDS: cefTRIAXone 1 GM in 0.9 % SODIUM CHLORIDE Mini-bag 100 ML IVPB (09:00)
[2024-02-08] MEDS: AMLODIPINE 5 MG TABLET 2.5 MG PO (09:00)
[2024-02-08] MEDS: IPRAT-ALBUT 0.5-2.5 MG/3 ML NEB 1 NEB IH (09:00)
[2024-02-08] MEDS: atenoloL 50 MG TABLET 100 MG PO (09:00)
[2024-02-08] MEDS: ASPIRIN 81 MG TAB.CHEW PO (09:02)
[2024-02-08] MEDS: AZITHROMYCIN 250 MG TABLET 500 MG PO (09:02)
[2024-02-08] MEDS: predniSONE 20 MG TABLET 40 MG PO (09:02)
[2024-02-08] MEDS: FOLIC ACID 1 MG TABLET PO (09:02)
[2024-02-08] MEDS: ROSUVASTATIN CALCIUM 10 MG TABLET PO (09:02)
[2024-02-08] MEDS: OMEPRAZOLE 20 MG CAPSULE DR PO (09:02)
[2024-02-08] MEDS: SODIUM CHLORIDE 0.9 % (FLUSH) 10 ML SYRINGE 5 ML IVF (09:03)
[2024-02-08] MEDS: PSYLLIUM HUSK (WITH SUGAR) 12 GM PACKET PO (09:03)
[2024-02-08] MEDS: THIAMINE 100 MG TABLET PO (09:03)
--- NOTE | 2024-02-08 13:04 | P.DS_ITS ---
DS: Providers Provider Date Seen: 02/08/24 Date of admission: 02/08/24 09:18 Primary care physician: Sherif Orosco MD Admitting Clinician: Andre Singer MD Attending Physician on discharge: Andre Singer MD Date of Discharge: 02/08/24 DS: Diagnosis Discharge Diagnosis (1) Acute hypoxemic respiratory failure: Status: Acute Problem details: CT suggests atypical or viral pneumonia - swab for COVID, influenza a and B, and RSV are negative. - Likely multifactorial including COPD, pneumonia, undiagnosed sleep apnea. - continue oxygen supplementation, keep sats between 88 and 90% (2) Pneumonia: Status: Acute Problem details: Treated for community-acquired pneumonia with ceftriaxone and azithromycin. On discharge will have 3 more days of levofloxacin (3) COPD (chronic obstructive pulmonary disease): Status: Acute Problem details: Has not had formal diagnosis or evaluation for COPD but clinically appears to have COPD on this admission. Treat with inhaled bronchodilator and short course of prednisone. (4) Altered mental status associated with intoxication: Status: Acute Problem details: Patient had altered mental status during the night likely primarily due to excessive oxycodone plus diazepam. (5) Polypharmacy: Status: Acute Problem details: Frail elderly lady with a history of alcohol use disorder taking both diazepam and oxycodone puts her at risk for falls (6) Frailty syndrome in geriatric patient: Status: Acute (7) Urinary tract infection: Status: Acute Problem details: Urine culture is growing greater than 100,000 colonies of Gram-negative rods. Culture pending. Treated with ceftriaxone in the hospital and [facility] outpatient. (8) Weakness: Status: Acute Problem details: Acute on chronic. 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 (12) Speech disturbance: Status: Acute Problem details: Speech is hesitant with mild problems with articulations/fluency. Patient reports this is back to baseline (13) Alcoholism: Status: Acute Problem details: Abstinent for 1 and half years, since June 2022 (14) Do not resuscitate status: Status: Acute (15) Pain: Status: Acute Problem details: She has chronic pain for which she takes moderate dose of ibuprofen as well as oxycodone (16) Obstructive sleep apnea: Status: Acute Problem details: Patient has been clinically diagnosed with sleep apnea in the past but declines further evaluation or treatment (17) Driving safety issue: Status: Acute Problem details: Patient reports no problems with driving but given her other deficits concern about her ability to drive safely. 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 Patient was able to describe her circumstances and give reasonably good history. She scored 24/30 on a [place]. At this time appears to be able to manage her own affairs, medications and make her own decisions. DS: Summary Hospital Course Hospital Course: Rach Cox is a 78 year old female presents to the emergency department for evaluation of altered mental status, brought in by EMS. Patient reports that she when out to smoke at around midnight. She had taken 3 oxycodone tablets which is not typical for her. She reports she was having right shoulder pain which is an ongoing issue and is not due to any new injury or trauma. He was frustrated by the pain and took an old supply of the medication. She denies any alcohol intake tonight but EMS reports that she has been known to be a drinker in the past. She reports that while she was out having a smoke, she started to feel weak. Her legs started to buckle under her so she went down to the ground. She crawled forward towards the door of the apartment building but was not able to reach it. She says that she did not think she could get up so she just sat on the ground all night. It is unclear if she lost consciousness but she really does not think so. She said that she did not take her phone outside with her so she could not call for help. She has not the least bit distressed by this. She did not attempt to crawl or yell for help from anyone else. One of her neighbor saw her at about 530 in the morning and went to check on her. She reported that she was awakened was able to talk with them but they felt like she seemed ?off? so they called EMS. EMS reports that her house was clean, well kept. Her medications were pretty organized. When they asked about the oxycodone from her story she explained that it is kept differently in a separate place because she does not normally take it. The rationale seemed pretty clear. They reported that she was slurring her words a bit her and just seemed confused about some things. She was moving all of her extremities and was not reporting any focal neurological deficits. She had a coat on appropriately when she was found outside like she had gone outside deliberately. Patient denies any psychiatric issues, denies any recent illness. No fever. Did not fall and hit her head. When I ask her what she think happen tonight, she blames the oxycodone. She has no other acute concerns today. A code stroke was called prior to arrival. Patient reports longstanding problems with speech. She has a hesitant speech with some problems with articulation which she says is been going on for years. She has not had a stroke and she says is not really different now than baseline. 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 This is been evaluated by Neurology after a fall last year where she was transfer to [facility] and then went to a care home for some rehab. At that time they had offered her some genetic testing to see if there was a genetic cause for her to ataxia. The initial suspicion was that this was related to chronic alcohol abuse. She has not been drinking since that time. She uses a walker and was using a last night when she fell. Ten days ago she was prescribed Percocet 5/325 to take 1 tab at bedtime for shoulder pain there was interfering with sleep. She has also been prescribed diazepam to use p.r.n. for anxiety. She takes ibuprofen 600 mg 3 times a day for chronic shoulder pain. She reports no injury with her fall. She denies symptoms of illness including cough, sore throat, cold symptoms, new dyspnea, fever, abdominal pain, vomiting, diarrhea, new urinary problems. She does report chronic urinary frequency for years. No dysuria. Other day of discharge patient reports feeling fine. She denies any medical problems, injuries or symptoms of illness. She is weaned off of oxygen and reports no respiratory symptoms today. She is eating well. Physical therapy evaluated her and found her to be quite ataxic walking with her walker but she said this was baseline. She is adamant about going home today. Status at Discharge Overall status at discharge: patient is progressing back to baseline Time Spent with Patient Time attestation: Total time spent providing and/or coordinating discharge services: 45 minutes Time spent: Greater than 30 minutes Exam Narrative: Exam Narrative: She is alert and appears in no distress. Breathing is unlabored. Respirations with diminished breath sounds throughout. No wheezing. A rare basilar crackle. Cardiovascular: S1, S2, regular rate and rhythm. Abdomen: Bowel sounds active. Abdomen is soft without tenderness or mass. Extremities without edema. Const: Vital Signs, click to edit/add: Vital Signs - 24 hr 02/07/24 15:00 02/07/24 15:00 02/07/24 19:51 Temperature 98.6 F 101.9 F H Pulse Rate [Apical ] 92 92 Respiratory Rate 20 20 Blood Pressure [Ri ght Arm] 134/64 Pulse Oximetry 88 Oxygen Delivery Me thod Nasal Cannula Oxygen Flow Rate 2.5 02/07/24 19:54 02/07/24 21:00 02/07/24 21:19 Temperature 101.9 F H 100.3 F H 100.3 F H Pulse Rate [Apical ] 110 H Respiratory Rate 20 Blood Pressure [Ri ght Arm] 131/81 Pulse Oximetry 93 Oxygen Delivery Me thod Nasal Cannula Oxygen Flow Rate 2 02/07/24 23:00 02/07/24 23:00 02/08/24 03:00 Temperature 99.1 F 98.5 F Pulse Rate [Apical ] 100 100 86 Respiratory Rate 20 20 22 Blood Pressure [Ri ght Arm] 107/56 L 115/63 Pulse Oximetry 91 92 Oxygen Delivery Me thod Nasal Cannula Nasal Cannula Oxygen Flow Rate 2 2 02/08/24 07:00 02/08/24 07:47 Temperature 98.3 F Pulse Rate [Apical ] 94 Respiratory Rate 18 Blood Pressure [Ri ght Arm] 126/69 Pulse Oximetry 94 93 Oxygen Delivery Me thod Nasal Cannula Nasal Cannula Oxygen Flow Rate 2 2 Documenting provider has reviewed patient's vital signs: yes DS: Data Data Completed and Pending Labs on day of discharge: Labs from last 24 hours 02/08/24 02/07/24 02/07/24 06:00 17:56 06:35 WBC 15.77 H RBC 4.25 Hgb 11.1 L Hct 35.9 MCV 85 MCH 26 MCHC 31 L RDW Coeff of [place] 17.8 H Plt Count 390 Neut % (Auto) 92.4 H Lymph % (Auto) 5.3 L [place] % (Auto) 1.5 Eos % (Auto) 0.0 Baso % (Auto) 0.2 Neut # (Auto) 14.60 H Lymph # (Auto) 0.80 L [place] # (Auto) 0.20 Eos # (Auto) 0.00 Baso # (Auto) 0.00 Abs Immat Gran (auto) 0.10 Imm/Tot Granulo (auto) 0.6 VBG pH 7.386 7.311 L VBG pCO2 42 52 H VBG pO2 70.6 H < 30.1 VBG HCO3 25 26 Sodium 136 Potassium 4.0 Chloride 105 Carbon Dioxide 24 Anion Gap 7 BUN 17 Creatinine 0.6 Estimated Creat Clear 34.38 Estimated GFR 93 Glucose 147 H Lactate 0.8 1.2 Calcium 9.0 Total Bilirubin 0.5 AST 18 ALT 10 Alkaline Phosphatase 64 C-Reactive Protein 4.4 H Total Protein 7.1 Albumin 3.9 TSH 2.690 Preliminary micro results at discharge 02/07/24 Unknown Urine Culture - Preliminary Urine,Clean Catch Gram negative marly[facility] Imaging Chest x-ray: Radiologist's impression: INDICATION: Altered mental status, elevated white blood cell count COMPARISON: 05/09/2022 TECHNIQUE: PA and lateral 2 view chest. FINDINGS: Lung volumes are moderate. Diffuse fine interstitial opacities with mildly prominent pulmonary vascular markings. No peripheral septal lines. No pulmonary edema. No pleural effusion. No pneumothorax. No pneumomediastinum. Normal cardiomediastinal silhouette. Few atherosclerotic vascular calcifications. Bones: No acute findings.. IMPRESSION: Fine interstitial opacities may reflect a viral or atypical pneumonia. CT scan - head: Radiologist's impression: NDICATION: Altered mental status, stroke. COMPARISON: Brain MR 11/11/2022 TECHNIQUE: CT of the brain / head without intravenous contrast. Multiplanar axial, coronal, and sagittal reformats were reconstructed. FINDINGS: No intracranial hemorrhage. Normal appearance of the white matter. No acute or subacute cortically based infarct. Scattered white matter hypodensities may be related to chronic microvascular ischemia. No mass or mass effect. Normal ventricles. No skull fractures. No worrisome focal bone lesion. IMPRESSION: Normal head CT. Please note that all CT scans at this facility use dose modulation, iterative reconstruction, and/or weight-based dosing when appropriate to reduce radiation dose to as low as reasonably achievable. Dictated by Diane Peguero MD @ 02/07/2024 6:43:40 AM ----- ADDENDUM ----- Case discussed with Dr. Zarco at 7:09 a.m. on 02/07/2024. Dictated by Diane Peguero MD @ Feb 07 2024 8:32AM (Electronically Signed) For Patients: As a result of the Cures Act, medical imaging exams and procedure reports are released immediately into your electronic medical record. You may view this report before your referring provider. If you have questions, please contact your health care provider. INDICATION: Altered mental status, stroke. COMPARISON: Brain MR 11/11/2022 TECHNIQUE: CT of the brain / head without intravenous contrast. Multiplanar axial, coronal, and sagittal reformats were reconstructed. FINDINGS: No intracranial hemorrhage. Normal appearance of the white matter. No acute or subacute cortically based infarct. Scattered white matter hypodensities may be related to chronic microvascular ischemia. No mass or mass effect. Normal ventricles. No skull fractures. No worrisome focal bone lesion. IMPRESSION: Normal head CT. Discharge Plan Discharge Disposition: Home, Self-Care Date of Admission: 02/08/24 09:18 Attending Provider on Discharge: Andre Singer Primary Care Provider: Sherif Orosco Condition: Unchanged Anticipated Discharge Date/Time: 02/08/24 12:58 Discharge Medications: New prednisone 20 mg Tablet 40 mg PO DAILYWM Qty: 12 0RF levofloxacin 500 mg tablet 500 mg PO DAILY Qty: 3 0RF albuterol sulfate 90 mcg/actuation HFA aerosol inhaler 2 puff inhalation QID PRN (Reason: shortness of breath or wheezing) Qty: 6.7 0RF Continued thiamine HCl (vitamin B1) 100 mg tablet 100 mg PO DAILY oxycodone-acetaminophen 5-325 mg tablet 1 tab PO HS PRN (Reason: pain) omeprazole 20 mg capsule,delayed release(DR/EC) 20 mg PO DAILY folic acid 1 mg tablet 1 mg PO DAILY diazepam 5 mg tablet 2.5 mg PO DAILY PRN (Reason: anxiety) cholecalciferol (vitamin D3) 25 mcg (1,000 unit) capsule 25 mcg PO DAILY rosuvastatin 10 mg tablet 10 mg PO DAILY Metamucil (with sugar) 3.4 gram/12 gram powder 1 tbsp PO DAILY Rx Instructions: MIX 1 TABLESPOON INTO AT LEAST 8OZ OF WATER OR JUICE BEFORE ADMINISTERING ONCE DAILY atenolol 100 mg tablet 100 mg PO DAILY amlodipine 2.5 mg tablet 2.5 mg PO DAILY aspirin 81 mg tablet,chewable 1 tab PO DAILY Qty: 90 3RF Discharge Orders: Discharge Order (Routine); Ordered 02/08/24 Ordered By: Andre Singer Patient Education: Albuterol (By breathing), Levofloxacin (By mouth), Prednisolone (By mouth) Activity Level: Activity as Tolerated Discharge Diet: Regular Follow Up Appointments: Sherif Orosco MD [Primary Care Provider] - (Follow-up in 1 week to recheck breathing, medications) Forms: [employer] Info Instructions
--- NOTE | 2024-02-08 14:54 | PC.SOCIAL ---
Discharge planning: well service derrick worker met with pt today in her room to discuss discharge planning. Pt states that she gets assistance through [facility] via an Elderly Waiver. Pt has homemaking services once a week and a Life Alert Pendant through this waiver. Pt states that she doesn't wear her pendant as much as she should and will think about wearing it more. Pt states that she organizes her own medications and has no issues with this. Pt shared that she feels she is doing fine at home with the services she has in place and has no concerns with returning back home today. Pt will be transporting home via [employer] with a voucher from the hospital. well service derrick worker also spoke to Hilda at [employer] and she will also be able to make sure that the pt gets back into her apartment safely. Social work to follow-up as needed.
--- NOTE | 2024-02-08 17:35 | PC.NURSE ---
shift note: pt's home medications given back at dc after review. dc'd IV to Rt FA intact. Reviewed dc instructions and copies sent with pt. Belongings reviewed and sent with pt.
== END 2024-02-08 15:29 | disposition home or self-care (01) | DRG 139 ==
LOC: ED 11:29 → MEDSURG 11:49
PROVIDERS: Family Medicine; Admitting Provider Family Medicine; Emergency Provider Family Medicine; PCP Family Medicine; Visit Provider Family Medicine
DX: J18.9 Pneumonia, unspecified organism (principal); J96.01 Acute respiratory failure with hypoxia; J44.9 Chronic obstructive pulmonary disease, unspecified; N39.0 Urinary tract infection, site not specified; G11.19 Other early-onset cerebellar ataxia; R54 Age-related physical debility; M19.011 Primary osteoarthritis, right shoulder; Z79.899 Other long term (current) drug therapy; Z72.0 Tobacco use; R47.9 Unspecified speech disturbances; Z66 Do not resuscitate; G47.33 Obstructive sleep apnea (adult) (pediatric); F10.21 Alcohol dependence, in remission; G89.29 Other chronic pain; G31.84 Mild cognitive impairment of uncertain or unknown etiology; B96.20 Unspecified Escherichia coli [E. coli] as the cause of diseases classified elsewhere; Z16.24 Resistance to multiple antibiotics; T40.2X1A Poisoning by other opioids, accidental (unintentional), initial encounter; R41.82 Altered mental status, unspecified; Y92.096 Garden or yard of other non-institutional residence as the place of occurrence of the external cause
CPT/HCPCS: 36415; 70450; 71046; 80053; 80306; 81001; 81003; 82077; 82550; 82803; 83605; 83735; 84145; 84443; 84484; 85025; 86140; 87086; 87186; 87631; 93005; 94761; 97116; 97162; 97166; 97530; 97535; 99284; 99285; A9270; G0378; J0696; J1650; J2405; J7030; J7512

== ENCOUNTER 2024-02-10 21:53 | Outpatient (CLI) | payer BC, SELFPAY | END 2024-02-10 21:54 | disposition home or self-care (01) | LOC: AMB 02-16 02:45 | PROVIDERS: PCP Family Medicine; Visit Provider Family Medicine | DX: R41.82 Altered mental status, unspecified (principal) | CPT/HCPCS: A0425; A0427 ==

== ENCOUNTER 2024-02-10 22:31 | Inpatient (IN) | payer BC, SELFPAY ==
[2024-02-10] VITALS (12 sets, daily range): BP systolic 112–162; BP diastolic 51–80; PULSE 72–104; RESP 16; TEMP 35.5–35.7; O2SAT 82–99; BMI 28.3
--- NOTE | 2024-02-10 22:36 | CRLHL7_ITS ---
For Patients: As a result of the Century Cures Act, medical imaging exams and procedure reports are released immediately into your electronic medical record. You may view this report before your referring provider. If you have questions, please contact your health care provider. TECHNIQUE: Multiplanar CT examination of the cervical spine was performed without the use of intravenous contrast. INDICATION: Neck pain. Trauma. COMPARISON: None. FINDINGS: Nonspecific straightening of the normal cervical lordosis. No craniocervical dissociation. The vertebral body heights are maintained. No acute fractures or traumatic subluxation. The odontoid process is intact. Mild multilevel degenerative disc disease throughout cervical spine. There are small central disc protrusions, for example at C3-4 resulting in varying levels of mild canal stenosis. Mild multilevel uncovertebral facet arthropathy without high-grade neural foraminal stenosis at any cervical spine level. No large abnormal epidural collections identified. No significant prevertebral soft tissue edema. The visualized lung apices are clear. The thyroid gland is unremarkable. IMPRESSION: 1. No acute fracture or traumatic subluxation of the cervical spine. 2. Multilevel cervical spondylosis. Please note that all CT scans at this facility use dose modulation, iterative reconstruction, and/or weight-based dosing when appropriate to reduce radiation dose to as low as reasonably achievable. Dictated by Robert Parsons MD @ 02/10/2024 11:26:32 PM (Electronically Signed)
--- NOTE | 2024-02-10 22:36 | CRLHL7_ITS ---
For Patients: As a result of the Century Cures Act, medical imaging exams and procedure reports are released immediately into your electronic medical record. You may view this report before your referring provider. If you have questions, please contact your health care provider. INDICATION: Dyspnea. Trauma. TECHNIQUE: Multiplanar CT examination of the chest was performed without the use of intravenous contrast. COMPARISON: Chest radiographs 02/07/2024. FINDINGS: Lower neck: The visualized thyroid is unremarkable. Cardiovascular: Heart size is normal. Thoracic aorta and pulmonary artery are normal in caliber. Mild atherosclerotic calcifications of the aortic arch. Dense coronary arterial calcifications. Mediastinum and lymph nodes: No pathologic mediastinal or hilar lymphadenopathy by size criteria. Lungs: Right lower lobar consolidation. Dependent atelectasis. Linear bandlike opacification of the lung bases bilaterally, likely subsegmental atelectasis and/or scarring. Mild pulmonary emphysema. 5 mm nodule in the right lower lobe (5:41) 6 mm right middle lobe nodule abutting the major fissure (5:47). Airways: Aspirated debris within the trachea and left mainstem bronchus. Mild diffuse peribronchial wall thickening. Pleura: No pleural effusions or pneumothorax Chest wall: Unremarkable. Bones: No acute osseous abnormalities. Mild degenerative changes of the thoracic spine. Upper abdomen: No acute findings in the visualized upper abdomen. IMPRESSION: 1. No acute displaced rib fractures, pleural effusions or pneumothorax. 2. Right lower lobe consolidation with aspirated debris within the trachea, raising the possibility of aspiration pneumonia. 3. Scattered pulmonary nodules measuring up to 6 mm in the right lower lobe. Recommend follow-up CT in 3-6 months to assess stability or resolution, per Fleischner society guidelines. 4. Dense coronary arterial calcifications. Advise correlation with ASCVD evaluation. Please note that all CT scans at this facility use dose modulation, iterative reconstruction, and/or weight-based dosing when appropriate to reduce radiation dose to as low as reasonably achievable. Dictated by Robert Parsons MD @ 02/10/2024 11:33:39 PM (Electronically Signed)
--- NOTE | 2024-02-10 22:36 | CRLHL7_ITS ---
For Patients: As a result of the Century Cures Act, medical imaging exams and procedure reports are released immediately into your electronic medical record. You may view this report before your referring provider. If you have questions, please contact your health care provider. TECHNIQUE: Multiplanar CT examination of the head was performed without the use of intravenous contrast. INDICATION: Altered mental status. COMPARISON: CT head 02/07/2024. FINDINGS: No loss of dotson-white differentiation to suggest recent territorial infarct. No intracranial hemorrhage, abnormal extra-axial fluid collection, hydrocephalus or midline shift. The ventricles and cerebral sulci are prominent caliber, compatible mild generalized parenchymal volume loss. There is patchy ill-defined hypoattenuation of the periventricular white matter diffusely, consistent with chronic microvascular ischemic changes.. The basal cisterns are patent. The paranasal sinuses and mastoid air cells remain clear. Status post bilateral lens removal. The orbits and calvarium are unremarkable. The cerebellar tonsils are normal position. IMPRESSION: 1. No acute intracranial findings. 2. Mild generalized parenchymal volume loss with chronic microvascular ischemic changes. Stable examination. Please note that all CT scans at this facility use dose modulation, iterative reconstruction, and/or weight-based dosing when appropriate to reduce radiation dose to as low as reasonably achievable. Dictated by Robert Parsons MD @ 02/10/2024 11:22:01 PM (Electronically Signed)
[2024-02-10 22:57] LABS: HCO3 VBG 23 mmol/L (21-28); PCO2 VBG 46 mmHG (40-50); PO2 VBG 36.3 mmHG (25-47); pH VBG 7.295 (7.32-7.43)
[2024-02-10 23:00] LABS: Basophils Percent Auto 0.5 % (0.0-3.0); Eosinophils Percent Auto 2.1 % (0.0-7.0); Hematocrit 40.9 % (33.0-51.0); Hemoglobin* 12.5 gm/dL (12.0-16.0); Lymphocytes Percent Auto 17.2 % (20-44); Mean Corpuscular HGB Conc 31 gm/dL (32-36); Mean Corpuscular Hemoglobin 26 pg (26-34); Mean Corpuscular Volume 86 fL (80-100); Monocytes Percent Auto 8.9 % (0.0-11.0); Neutrophils Percent Auto 70.3 % (42.0-72.0); Platelet Count* 461 K/uL (140-440); RDW Coefficient of Variation % 18.5 % (11.5-15.5); Red Blood Count 4.77 m/uL (4.00-5.20); White Blood Count* 13.64 K/uL (4.50-11.00)
[2024-02-10 23:01] LABS: Lactate* 4.1 mmol/L (0.5-1.9)
[2024-02-10 23:04] LABS: Slide Review Reflex No
[2024-02-10] MEDS: 0.9 % SODIUM CHLORIDE 1000 ml 1,000 ML IV (23:09)
[2024-02-10 23:17] LABS: Chloride* 104 mmol/L (96-114)
[2024-02-10 23:18] LABS: Potassium* 4.2 mmol/L (3.6-5.1); Sodium* 139 mmol/L (135-149)
[2024-02-10 23:19] LABS: Albumin* 4.3 g/dL (3.3-5.0)
[2024-02-10 23:20] LABS: Creatinine* 0.8 mg/dL (0.5-1.5); Estimated Glomerular Filt Rate 76 ml/min
[2024-02-10 23:21] LABS: Anion Gap 13 mEq/L (7-15); Blood Urea Nitrogen* 10 mg/dL (7-30); Calcium* 9.6 mg/dL (8.4-10.6); Carbon Dioxide* 22 mmol/L (20-32); Glucose* 158 mg/dL (60-115)
[2024-02-10 23:22] LABS: Alkaline Phosphatase* 73 U/L (40-150); Aspartate Amino Transferase* 23 U/L (12-35); Bilirubin Direct* 0.2 mg/dL (0.0-0.5); Bilirubin Total* 0.3 mg/dL (0.1-1.5); Creatine Kinase* 48 U/L (41-117); Salicylate* 1.4 mg/dL (1.0-10); Total Protein* 7.6 g/dL (6.0-8.3)
[2024-02-10 23:23] LABS: Alanine Aminotransferase* 15 U/L (4-35); Ethanol* 0.08 % (0.01-0.03); Lipase* 61 U/L (23-300)
[2024-02-10 23:24] LABS: C Reactive Protein* 1.9 mg/dL (0.5-1.0)
[2024-02-10 23:25] LABS: INR 1.02 (0.91-1.10); Prothrombin Time 14.1 Seconds
[2024-02-10 23:25] LABS: Troponin, Point-of-Care* 0.02 ng/ml (0.01-0.04)
--- NOTE | 2024-02-10 23:25 | ED.GENADULT ---
HPI - General Adult General Chief complaint: Altered Mental Status Stated complaint: found unresponsive outside Time Seen by Provider: 02/10/24 22:47 Source: EMS Mode of arrival: EMS Limitations: altered mental status History of Present Illness HPI narrative: 78-year-old female brought in by EMS after a bystander called them. The patient was found down at a park, unresponsive. Unknown how long she had been there. EMS states that they found her surrounded by alcohol bottles and pill bottles of unknown substance. She had some powder around her mouth as well. She did receive Narcan and Zofran in the ambulance, per EMS they did not notice a significant response. Patient arrives with a GCS of 9, in the C-collar, with hemodynamically stable vital signs. Related Data Home Medications ?Medication ?Instructions ?Recorded ?Confirmed amlodipine 2.5 mg tablet 2.5 mg PO DAILY 02/07/24 02/07/24 atenolol 100 mg tablet 100 mg PO DAILY 02/07/24 02/07/24 cholecalciferol (vitamin D3) 25 25 mcg PO DAILY 02/07/24 02/07/24 mcg (1,000 unit) capsule diazepam 5 mg tablet 2.5 mg PO DAILY PRN anxiety 02/07/24 02/07/24 folic acid 1 mg tablet 1 mg PO DAILY 02/07/24 02/07/24 omeprazole 20 mg capsule,delayed 20 mg PO DAILY 02/07/24 02/07/24 release oxycodone-acetaminophen 5 mg-325 1 tab PO HS PRN pain 02/07/24 02/07/24 mg tablet psyllium husk (with sugar) 3.4 1 tbsp PO DAILY 02/07/24 02/07/24 gram/12 gram oral powder (Metamucil (with sugar)) rosuvastatin 10 mg tablet 10 mg PO DAILY 02/07/24 02/07/24 thiamine HCl (vitamin B1) 100 mg 100 mg PO DAILY 02/07/24 02/07/24 tablet Previous Rx's ?Medication ?Instructions ?Recorded aspirin 81 mg chewable tablet 1 tab PO DAILY #90 tabs 11/09/23 albuterol sulfate 90 mcg/actuation 2 puff inhalation QID PRN 02/08/24 aerosol inhaler shortness of breath or wheezing #6.7 grams levofloxacin 500 mg tablet 500 mg PO DAILY #3 tabs 02/08/24 prednisone 20 mg tablet 40 mg (2 x 20 mg) PO DAILYWM #12 02/08/24 tabs Allergies Allergy/AdvReac Type Severity Reaction Status Date / Time lisinopril Allergy Mild Cough Verified 01/28/24 15:24 Review of Systems Status of ROS: Reports: unobtainable due to mental status [facility] Medical History Cognitive impairment ?R41.89 - Other symptoms and signs involving cognitive functions and awareness (ICD-10) Driving safety issue ?Z91.89 - Other specified personal risk factors, not elsewhere classified (ICD-10) Obstructive sleep apnea ?G47.33 - Obstructive sleep apnea (adult) (pediatric) (ICD-10) COPD (chronic obstructive pulmonary disease) ?J44.9 - Chronic obstructive pulmonary disease, unspecified (ICD-10) Tobacco use ?Z72.0 - Tobacco use (ICD-10) Other viral pneumonia ?J12.89 - Other viral pneumonia (ICD-10) Polypharmacy ?Z79.899 - Other residential (current) drug therapy (ICD-10) Essential hypertension ?I10 - Essential (primary) hypertension (ICD-10) Carotid artery stenosis ?I65.29 - Occlusion and stenosis of unspecified carotid artery (ICD-10) GERD (gastroesophageal reflux disease) ?K21.9 - Gastro-esophageal reflux disease without esophagitis (ICD-10) Speech disturbance ?R47.9 - Unspecified speech disturbances (ICD-10) Psoriasis ?L40.9 - Psoriasis, unspecified (ICD-10) Do not resuscitate status ?Z66 - Do not resuscitate (ICD-10) Otitis media, acute mucoid ?H65.119 - Acute and subacute allergic otitis media (mucoid) (sanguinous) (serous), unspecified ear (ICD-10) Pain ?R52 - Pain, unspecified (ICD-10) Nicotine dependence ?F17.200 - Nicotine dependence, unspecified, uncomplicated (ICD-10) Mammogram declined ?Z53.20 - Procedure and treatment not carried out because of patient's decision for unspecified reasons (ICD-10) Colon cancer screening declined ?Z53.20 - Procedure and treatment not carried out because of patient's decision for unspecified reasons (ICD-10) Frailty syndrome in geriatric patient ?R54 - Age-related physical debility (ICD-10) Ataxia ?R27.0 - Ataxia, unspecified (ICD-10) Acute delirium ?R41.0 - Disorientation, unspecified (ICD-10) Cyst of face Greater trochanteric bursitis of right hip ?M70.61 - Trochanteric bursitis, right hip (ICD-10) Left hand pain ?M79.642 - Pain in left hand (ICD-10) Left carpal tunnel syndrome ?G56.02 - Carpal tunnel syndrome, left upper limb (ICD-10) Right carpal tunnel syndrome ?G56.01 - Carpal tunnel syndrome, right upper limb (ICD-10) Right rotator cuff tear arthropathy ?M75.101 - Unspecified rotator cuff tear or rupture of right shoulder, not specified as traumatic (ICD-10) ?M12.811 - Other specific arthropathies, not elsewhere classified, right shoulder (ICD-10) Osteoarthritis of right shoulder ?M19.011 - Primary osteoarthritis, right shoulder (ICD-10) Alcoholism ?F10.20 - Alcohol dependence, uncomplicated (ICD-10) History of diverticulitis ?Z87.19 - Personal history of other diseases of the digestive system (ICD-10) Surgical History History of phacoemulsification of cataract of left eye with intraocular lens implantation (06/01/19) ?Z98.42 - Cataract extraction status, left eye (ICD-10) ?Z96.1 - Presence of intraocular lens (ICD-10) H/O foot surgery (10/19/14) ?Z98.890 - Other specified postprocedural states (ICD-10) Social History Narrative: SOCIAL HISTORY: Single and retired. She has a daughter, Margo Cox, and granddaughter in town. She reports she is not close to her daughter but would choose her daughter as healthcare power of workers compensation defense attorney in an emergency. Code status is DNR DNI. She does not want any heroic interventions. HABITS: Not sexually active. Walking, stationary bike, resistance 5x/week. She smokes 4 cigarettes per day. No alcohol since Apr 2022. Prev 7 shots per day. No recreational drug use. What is your current living situation?: I presently have a place to live Problems where you live: no known problems Problems where you live details: apartment building In the past 12 months, utilities in danger of being shut off: no In past 12 months, lack of transportation kept you from medical appts, meetings, work, or getting things needed for daily living: no In the past 12 mos, have been you worried that your food would run out before you had money to buy more?: never true In the past 12 mos, the food you bought just didn't last and you didn't have money to buy more?: never true Smoking Status: Current every day smoker What tobacco products do you use: cigarettes Smoking packs per day: 1 Smoking cigarettes per day: 20.0 Do you use any of these nicotine containing products: None Second hand tobacco smoke exposure: No How often do you have a drink containing alcohol: 4 or more times a week Alcohol type: hard liquor How many standard drinks containing alcohol do you have on a typical day: 3 or 4 How often do you have six or more drinks on one occasion: Never AUDIT-C Alcohol total score: 5 Non-prescribed substance use: denies use Caffeine: Yes (soda daily) How often does anyone, including family, friends and others, physically hurt you: never How often does anyone, including family, friends and others, insult or talk down to you: never How often does anyone, including family, friends and others, threaten you with harm: never How often does anyone, including family, friends and others, scream or curse at you: never Little interest or pleasure in doing things: not at all Feeling down, depressed, or hopeless: not at all Are you using contraception or practicing any form of control: No service: No Exam Narrative: Exam Narrative: Patient is in a C-collar, she can look at you when you call her name but generally does not follow other commands. During our assessment she did states start to slowly become more alert in her GCS jumped to 11. Patient is demonstrating some gurgling sounds with breathing. However she is maintaining her oxygen saturation in the lower to mid 90s on room air. She also arrived with a nasal trumpet in place which she started to pull at so this was removed. HEENT: Normocephalic atraumatic. Pupils are pinpoint and sluggish. Conjunctivae are moist without any icterus noted, glassy. Moist mucous membranes. No trauma noted to the inside of the mouth. Neck is soft. Cardiovascular: Heart is regular rate and rhythm S1 and S2 are present without any murmurs. Lungs: Bilateral rhonchi. Patient has no tenderness to palpation of the anterior, lateral posterior chest wall. Abdomen: Soft and nontender nondistended with normal bowel sounds. No guarding or rebound. No masses or organomegaly appreciated. Extremities: Bilateral lower extremities are without edema. Normal DP and PT pulses. No abrasions noted of the extremities. Skin: Well perfused. Back: Normal appearance. Patient has no obvious tenderness to palpation at the cervical, thoracic or lumbar spine. Cannot assess her range of motion at the neck as patient is not following directions. Const: Vital Signs, click to edit/add: Vital Signs - 24 hr 02/10/24 23:07 02/10/24 23:08 02/10/24 23:15 Temperature Pulse Rate 92 83 79 Pulse Rate [Pulse Oximeter] Respiratory Rate 16 Blood Pressure 135/65 Blood Pressure [Le ft Upper Arm] Pulse Oximetry 91 85 L 82 L Oxygen Delivery Me thod Oxygen Flow Rate 02/10/24 23:23 02/10/24 23:24 02/10/24 23:25 Temperature Pulse Rate 75 Pulse Rate [Pulse Oximeter] Respiratory Rate Blood Pressure 112/51 L Blood Pressure [Le ft Upper Arm] Pulse Oximetry 94 95 95 Oxygen Delivery Me thod Nasal Cannula Nasal Cannula Oxygen Flow Rate 1 1 02/10/24 23:25 02/10/24 23:30 02/10/24 23:31 Temperature Pulse Rate 72 74 78 Pulse Rate [Pulse Oximeter] Respiratory Rate Blood Pressure 116/63 Blood Pressure [Le ft Upper Arm] Pulse Oximetry 95 89 92 Oxygen Delivery Me thod Oxygen Flow Rate 02/10/24 23:32 02/10/24 23:33 02/10/24 23:37 Temperature 96.2 F L 95.9 F L Pulse Rate 75 Pulse Rate [Pulse Oximeter] 104 H Respiratory Rate 16 Blood Pressure Blood Pressure [Le ft Upper Arm] 162/80 H Pulse Oximetry 89 99 Oxygen Delivery Me thod Nasal Cannula Oxygen Flow Rate 02/10/24 23:45 02/11/24 00:00 Temperature 97.2 F L Pulse Rate 84 86 Pulse Rate [Pulse Oximeter] Respiratory Rate 16 Blood Pressure Blood Pressure [Le ft Upper Arm] Pulse Oximetry 94 Oxygen Delivery Me thod Oxygen Flow Rate Course Course ED Course: Differential diagnoses at this time includes acute alcohol intoxication, CVA, subarachnoid hemorrhage or subdural hematoma, other drug overdose, polypharmacy, hypercapnia, electrolyte abnormality, seizure among others. IV established and fluids are started. EKG, read by me, shows normal sinus rhythm with a pulse of 96, prolonged QT- but EKG not the best quality. Patient proceeded to head neck and chest CT: Head CT did not show any acute abnormalities, cervical spine CT did not show any acute abnormalities. Chest CT showed infiltrates in the right lung with aspirate debris in the trachea, both concerning for aspiration pneumonia. CBC shows an elevated white count at 13.64, platelet count [id number]. Normal hemoglobin. VBG shows a pH of 7.295. Normal chemistries. Normal renal function. Lactate elevated at 4.1. Normal LFTs. Normal lipase. Unremarkable UA. Urine drug screen positive for opiates and benzodiazepines. Blood alcohol 0.08. Acetaminophen levels elevated at 62. Discussed acetaminophen levels with poison Control who do recommend acetylcysteine treatment at this time. Therefore protocol was initiated with 150 mg per kg loading dose over an hour. Patient also started on IV Zosyn. Discussed patient with Dr. Mcneal, [facility] hospitalist, who will accept the patient for admission. During her workup patient did become more awake and responsive. Became more cooperative. Stated that she has been taking Percocet, cannot say how many or for how long. States that she is currently not on any antibiotics. Vital Signs Vital signs: Initial Vital Signs Pulse Rate 92 02/10/24 23:07 Respiratory Rate 16 02/10/24 23:07 Pulse Oximetry 91 02/10/24 23:07 Vital Signs Pulse Rate 92 02/10/24 23:07 Respiratory Rate 16 02/10/24 23:07 Pulse Oximetry 91 02/10/24 23:07 Temperature 97.2 F L 02/11/24 00:00 Pulse Rate 86 02/11/24 00:00 Respiratory Rate 16 02/10/24 23:45 Blood Pressure 162/80 H 02/10/24 23:37 Pulse Oximetry 94 02/10/24 23:45 Oxygen Delivery Method Nasal Cannula 02/10/24 23:37 Oxygen Flow Rate 1 02/10/24 23:25 Medications Administered Medications: Discontinued Medications Generic Name Dose Route Start Last Admin Trade Name Freq PRN Reason Stop Dose Admin Sodium Chloride 1,000 mls @ 1,000 mls/hr 02/10/24 22:45 02/10/24 23:50 0.9 % Sodium Chloride 1000 Ml IV 02/10/24 23:44 Infused .Q1H MARK Infusion Medical Decision Making MDM Narrative Medical decision making narrative: 78-year-old female with probable Percocet overdose and acetaminophen toxicity. Probable aspiration pneumonia secondary to altered mental status. Will admit for further management. Lab Data Lab results reviewed: Yes I reviewed the patient's lab results Labs: Lab Results 02/10/24 02/10/24 02/10/24 Range/Units 22:37 22:45 23:55 WBC 13.64 H (4.50-11.00) K/uL RBC 4.77 (4.00-5.20) m/uL Hgb 12.5 (12.0-16.0) gm/dL Hct 40.9 (33.0-51.0) % MCV 86 (80-100) fL MCH 26 (26-34) pg MCHC 31 L (32-36) gm/dL RDW Coeff of Santos 18.5 H (11.5-15.5) % Plt Count 461 H (140-440) K/uL Neut % (Auto) 70.3 (42.0-72.0) % Lymph % (Auto) 17.2 L (20-44) % Mcminn % (Auto) 8.9 (0.0-11.0) % Eos % (Auto) 2.1 (0.0-7.0) % Baso % (Auto) 0.5 (0.0-3.0) % Neut # (Auto) 9.60 H (1.7-7.0) K/uL Lymph # (Auto) 2.30 (0.90-2.90) K/uL Mcminn # (Auto) 1.20 H (0.00-0.90) K/UL Eos # (Auto) 0.30 (0.00-0.50) K/uL Baso # (Auto) 0.10 (0.00-0.30) K/uL Abs Immat Gran (auto) 0.10 (0.00-0.30) K/uL Imm/Tot Granulo (auto) 1.0 % INR 1.02 (0.91-1.10) VBG pH 7.295 L (7.32-7.43) VBG pCO2 46 (40-50) mmHG VBG pO2 36.3 (25-47) mmHG VBG HCO3 23 (21-28) mmol/L Sodium 139 (135-149) mmol/L Potassium 4.2 (3.6-5.1) mmol/L Chloride 104 (96-114) mmol/L Carbon Dioxide 22 (20-32) mmol/L Anion Gap 13 (7-15) mEq/L BUN 10 (7-30) mg/dL Creatinine 0.8 (0.5-1.5) mg/dL Estimated GFR 76 ml/min Glucose 158 H (60-115) mg/dL Lactate 4.1 H* (0.5-1.9) mmol/L Calcium 9.6 (8.4-10.6) mg/dL Magnesium 2.0 (1.5-2.6) mg/dL Total Bilirubin 0.3 (0.1-1.5) mg/dL Direct Bilirubin 0.2 (0.0-0.5) mg/dL AST 23 (12-35) U/L ALT 15 (4-35) U/L Alkaline Phosphatase 73 (40-150) U/L Total Creatine Kinase 48 (41-117) U/L Troponin I 0.02 (0.01-0.04) ng/mL C-Reactive Protein 1.9 H (0.5-1.0) mg/dL NT-Pro-B Natriuret Pep 152 pg/mL Total Protein 7.6 (6.0-8.3) g/dL Albumin 4.3 (3.3-5.0) g/dL Lipase 61 (23-300) U/L Urine Color Yellow (Yellow) Urine Appearance Clear (Clear) Urine pH 6.5 (5.0-8.5) Ur Specific [place] 1.020 (1.000-1.030) Urine Protein 1+ A (Negative) Urine Glucose (UA) Negative (Negative) Urine Ketones Negative (Negative) Urine Blood Negative (Negative) Urine Nitrite Negative (Negative) Urine Bilirubin Negative (Negative) Urine Urobilinogen 0.2 (0.2-1.0) Ur Leukocyte Esterase Negative (Negative) Urine RBC 0-2 (0-2) Urine WBC 0-2 (0-5) Ur Squamous Epith Cells Few (None-Few) Urine Bacteria Few A (None) Salicylates 1.4 (1.0-10) mg/dL Urine Opiates Screen POSITIVE A (Negative) Ur Oxycodone Screen Negative (Negative) Urine Methadone Screen Negative (Negative) Acetaminophen 62.0 H (10.0-30.0) ug/mL Ur Barbiturates Screen Negative (Negative) U Tricyclic Antidepress Negative (Negative) Ur Phencyclidine Scrn Negative (Negative) Ur Amphetamines Screen Negative (Negative) U Methamphetamines Scrn Negative (Negative) U Benzodiazepines Scrn POSITIVE A (Negative) Urine Cocaine Screen Negative (Negative) U Marijuana (THC) Screen Negative (Negative) Ur Drug Screen Comment See Note Ethyl Alcohol 0.08 H (0.01-0.03) % SARS-CoV-2 (PCR) Negative SARS-CoV-2 (Negative) Influenza Type A (PCR) Negative PCR FLU A (Negative) Influenza Type B (PCR) Negative PCR FLU B (Negative) POC Troponin I 0.02 (0.01-0.04) ng/ml Imaging Data CT scan - head: Attestation: I have reviewed the pertinent imaging results. Radiologist's impression: Multiplanar CT examination of the head was performed without the use of intravenous contrast. INDICATION: Altered mental status. COMPARISON: CT head 02/07/2024. FINDINGS: No loss of dotson-white differentiation to suggest recent territorial infarct. No intracranial hemorrhage, abnormal extra-axial fluid collection, hydrocephalus or midline shift. The ventricles and cerebral sulci are prominent caliber, compatible mild generalized parenchymal volume loss. There is patchy ill-defined hypoattenuation of the periventricular white matter diffusely, consistent with chronic microvascular ischemic changes.. The basal cisterns are patent. The paranasal sinuses and mastoid air cells remain clear. Status post bilateral lens removal. The orbits and calvarium are unremarkable. The cerebellar tonsils are normal position. IMPRESSION: 1. No acute intracranial findings. 2. Mild generalized parenchymal volume loss with chronic microvascular ischemic changes. Stable examination. Cervical spine CT: Attestation: I have reviewed the pertinent imaging results. Radiologist's impression: Multiplanar CT examination of the cervical spine was performed without the use of intravenous contrast. INDICATION: Neck pain. Trauma. COMPARISON: None. FINDINGS: Nonspecific straightening of the normal cervical lordosis. No craniocervical dissociation. The vertebral body heights are maintained. No acute fractures or traumatic subluxation. The odontoid process is intact. Mild multilevel degenerative disc disease throughout cervical spine. There are small central disc protrusions, for example at C3-4 resulting in varying levels of mild canal stenosis. Mild multilevel uncovertebral facet arthropathy without high-grade neural foraminal stenosis at any cervical spine level. No large abnormal epidural collections identified. No significant prevertebral soft tissue edema. The visualized lung apices are clear. The thyroid gland is unremarkable. IMPRESSION: 1. No acute fracture or traumatic subluxation of the cervical spine. 2. Multilevel cervical spondylosis. CT scan - chest: Attestation: I have reviewed the pertinent imaging results. Radiologist's impression: Multiplanar CT examination of the chest was performed without the use of intravenous contrast. COMPARISON: Chest radiographs 02/07/2024. FINDINGS: Lower neck: The visualized thyroid is unremarkable. Cardiovascular: Heart size is normal. Thoracic aorta and pulmonary artery are normal in caliber. Mild atherosclerotic calcifications of the aortic arch. Dense coronary arterial calcifications. Mediastinum and lymph nodes: No pathologic mediastinal or hilar lymphadenopathy by size criteria. Lungs: Right lower lobar consolidation. Dependent atelectasis. Linear bandlike opacification of the lung bases bilaterally, likely subsegmental atelectasis and/or scarring. Mild pulmonary emphysema. 5 mm nodule in the right lower lobe (5:41) 6 mm right middle lobe nodule abutting the major fissure (5:47). Airways: Aspirated debris within the trachea and left mainstem bronchus. Mild diffuse peribronchial wall thickening. Pleura: No pleural effusions or pneumothorax Chest wall: Unremarkable. Bones: No acute osseous abnormalities. Mild degenerative changes of the thoracic spine. Upper abdomen: No acute findings in the visualized upper abdomen. IMPRESSION: 1. No acute displaced rib fractures, pleural effusions or pneumothorax. 2. Right lower lobe consolidation with aspirated debris within the trachea, raising the possibility of aspiration pneumonia. 3. Scattered pulmonary nodules measuring up to 6 mm in the right lower lobe. Recommend follow-up CT in 3-6 months to assess stability or resolution, per Fleischner society guidelines. 4. Dense coronary arterial calcifications. Advise correlation with ASCVD evaluation. ECG Data Attestation: I personally reviewed and interpreted this ECG as follows: Critical Care Time Critical Care Time Total Critical Care Time in Minutes: 90 Discharge Plan Discharge Clinical Impression: Altered mental status, Acetaminophen toxicity, Opioid overdose, Aspiration pneumonia Patient Disposition: Admitted As Observation Condition: Stable
[2024-02-10 23:33] LABS: Troponin I* 0.02 ng/mL (0.01-0.04)
[2024-02-10 23:40] LABS: PCR FLU A Negative PCR FLU A (Negative); PCR FLU B Negative PCR FLU B (Negative); SARS PCR* Negative SARS-CoV-2 (Negative)
[2024-02-10 23:46] LABS: NT Pro B Type NatriureticPept* 152 pg/mL
[2024-02-11] VITALS (46 sets, daily range): BP systolic 74–177; BP diastolic 43–98; PULSE 75–103; RESP 9–20; TEMP 35.9–36.6; O2SAT 79–95; BMI 27.4
[2024-02-11 00:03] LABS: Appearance Urine Clear (Clear); Bilirubin Urine Negative (Negative); Blood Urine Negative (Negative); Color Urine Yellow (Yellow); Glucose Urine Negative (Negative); Ketones Urine Negative (Negative); Leukocyte Esterase Urine Negative (Negative); Nitrite Urine Negative (Negative); Protein Urine 1+ (Negative); Urobilinogen Urine 0.2 (0.2-1.0); pH Urine 6.5 (5.0-8.5)
[2024-02-11 00:10] LABS: Amphetamine Screen Urine Negative (Negative); Barbiturate Screen Urine Negative (Negative); Benzodiazepines Screen Urine POSITIVE (Negative); Cannabinoid Screen Urine Negative (Negative); Cocaine Screen Urine Negative (Negative); Methadone Screen Urine Negative (Negative); Methamphetamines Screen Urine Negative (Negative); Opiate Screen Urine POSITIVE (Negative); Oxycodone Screen Urine Negative (Negative); Phencyclidine Screen Urine Negative (Negative); Tricyclic Antidepressant Urine Negative (Negative)
[2024-02-11 00:12] LABS: Bacteria Urine Few; RBC Urine 0-2 (0-2); Squamous Epithelial Cell Urine Few (None-Few); WBC Urine 0-2 (0-5)
[2024-02-11] MEDS: PIPERACILLIN/TAZOBACTAM 3.375 GM in 0.9 % SODIUM CHLORIDE Mini-bag 100 ML IVPB (00:22)
[2024-02-11] MEDS: 0.9 % SODIUM CHLORIDE 1000 ml 1,000 ML IV (00:49)
[2024-02-11] MEDS: 0.9 % SODIUM CHLORIDE 1000 ml 1,000 ML 150 ML IV ×2 (02:07→07:54)
--- NOTE | 2024-02-11 02:07 | W.PM.TELEH&P ---
Telehealth- H&P: HPI History of Present Illness Date Seen: 02/11/24 Chief complaint: found unresponsive outside Narrative: Rach Cox is seen as an Interactive Telehealth visit. Rach Cox is This is a 78-year-old female with a history of chronic alcoholism, chronic opiate dependence, cognitive impairment who presented to hospital unresponsive. Patient was initially brought in via EMS after [place] the park [place] un[place]. EMS stated that she found multiple bottles of alcohol and pills of unknown substances around her. She had however around her mouth. She was given Narcan. Patient did not have a significant improvement. Her Vahid Coma Scale was 9. She was brought to the emergency room. In the emergency room, she was noted to be hypotensive confused. Eventually she started become more arousable and her GCS improved. She was having difficulty breathing and noted to be gurgling. A nasal trumpet was placed which was eventually removed. Her lungs were noted to have bilateral rhonchi in the left. Patient underwent a CT of the head and cervical spine which was negative. CT of the chest showed infiltrates in the right lung with Asper debris in the trachea concerning for aspiration. Patient's VBG showed a pH of 7.29 concerning for acidosis. Lactic acid was 4.1. Patient's LFTs were normal but aspirin acetaminophen levels were markedly elevated at 62. Poison control was contacted and they recommended acetylcysteine treatment. Protocol was initiated she was also started on antibiotics for potential aspiration pneumonia. When the patient came to the floor she became increasingly more arousable and alert and oriented. When asked why she did this, she stated that she was trying to kill herself. She told us, that she attempted to overdose a few days prior. At that time she presented on 02/07/2024 with concerns for acute altered mental status. At that time it was thought that she took oxycodone and Valium. She ended up coming to the hospital due to hypoxia but was eventually discharged. She stated that she did not admit the truth, but she was likely attempting suicide at that time as well. Review of Systems Status of ROS: Reports: 10 or more systems reviewed and unremarkable except as noted in History and below Const: Reports: fatigue; Denies: fever, chills or change in weight ENMT: Denies: neck pain Cardio: Denies: chest pain, palpitations, edema, swelling of feet/ankles, lightheadedness or shortness of breath with exertion Resp: Denies: shortness of breath GI: Reports: nausea and vomiting; Denies: abdominal pain Musculo: Denies: back pain, neck pain or extremity pain Integ/Breast: Denies: rash Neuro: Reports: headache and dizziness Psych: Reports: anxiety and suicidal ideation Endo: Reports: fatigue PFSH PFS Medical History Cognitive impairment ?R41.89 - Other symptoms and signs involving cognitive functions and awareness (ICD-10) Driving safety issue ?Z91.89 - Other specified personal risk factors, not elsewhere classified (ICD-10) Obstructive sleep apnea ?G47.33 - Obstructive sleep apnea (adult) (pediatric) (ICD-10) COPD (chronic obstructive pulmonary disease) ?J44.9 - Chronic obstructive pulmonary disease, unspecified (ICD-10) Tobacco use ?Z72.0 - Tobacco use (ICD-10) Other viral pneumonia ?J12.89 - Other viral pneumonia (ICD-10) Polypharmacy ?Z79.899 - Other fpc (current) drug therapy (ICD-10) Essential hypertension ?I10 - Essential (primary) hypertension (ICD-10) Carotid artery stenosis ?I65.29 - Occlusion and stenosis of unspecified carotid artery (ICD-10) GERD (gastroesophageal reflux disease) ?K21.9 - Gastro-esophageal reflux disease without esophagitis (ICD-10) Speech disturbance ?R47.9 - Unspecified speech disturbances (ICD-10) Psoriasis ?L40.9 - Psoriasis, unspecified (ICD-10) Do not resuscitate status ?Z66 - Do not resuscitate (ICD-10) Otitis media, acute mucoid ?H65.119 - Acute and subacute allergic otitis media (mucoid) (sanguinous) (serous), unspecified ear (ICD-10) Pain ?R52 - Pain, unspecified (ICD-10) Nicotine dependence ?F17.200 - Nicotine dependence, unspecified, uncomplicated (ICD-10) Mammogram declined ?Z53.20 - Procedure and treatment not carried out because of patient's decision for unspecified reasons (ICD-10) Colon cancer screening declined ?Z53.20 - Procedure and treatment not carried out because of patient's decision for unspecified reasons (ICD-10) Frailty syndrome in geriatric patient ?R54 - Age-related physical debility (ICD-10) Ataxia ?R27.0 - Ataxia, unspecified (ICD-10) Acute delirium ?R41.0 - Disorientation, unspecified (ICD-10) Cyst of face Greater trochanteric bursitis of right hip ?M70.61 - Trochanteric bursitis, right hip (ICD-10) Left hand pain ?M79.642 - Pain in left hand (ICD-10) Left carpal tunnel syndrome ?G56.02 - Carpal tunnel syndrome, left upper limb (ICD-10) Right carpal tunnel syndrome ?G56.01 - Carpal tunnel syndrome, right upper limb (ICD-10) Right rotator cuff tear arthropathy ?M75.101 - Unspecified rotator cuff tear or rupture of right shoulder, not specified as traumatic (ICD-10) ?M12.811 - Other specific arthropathies, not elsewhere classified, right shoulder (ICD-10) Osteoarthritis of right shoulder ?M19.011 - Primary osteoarthritis, right shoulder (ICD-10) Alcoholism ?F10.20 - Alcohol dependence, uncomplicated (ICD-10) History of diverticulitis ?Z87.19 - Personal history of other diseases of the digestive system (ICD-10) Surgical History History of phacoemulsification of cataract of left eye with intraocular lens implantation (06/01/19) ?Z98.42 - Cataract extraction status, left eye (ICD-10) ?Z96.1 - Presence of intraocular lens (ICD-10) H/O foot surgery (10/19/14) ?Z98.890 - Other specified postprocedural states (ICD-10) Social History Narrative: SOCIAL HISTORY: Single and retired. She has a daughter, Margo Cox, and granddaughter in town. She reports she is not close to her daughter but would choose her daughter as healthcare power of employment law attorney in an emergency. Code status is DNR DNI. She does not want any heroic interventions. HABITS: Not sexually active. Walking, stationary bike, resistance 5x/week. She smokes 4 cigarettes per day. No alcohol since Apr 2022. Prev 7 shots per day. No recreational drug use. What is your current living situation?: I presently have a place to live Problems where you live: no known problems Problems where you live details: apartment building In the past 12 months, utilities in danger of being shut off: no In past 12 months, lack of transportation kept you from medical appts, meetings, work, or getting things needed for daily living: no In the past 12 mos, have been you worried that your food would run out before you had money to buy more?: never true In the past 12 mos, the food you bought just didn't last and you didn't have money to buy more?: never true Smoking Status: Current every day smoker What tobacco products do you use: cigarettes Smoking packs per day: 1 Smoking cigarettes per day: 20.0 Do you use any of these nicotine containing products: None Second hand tobacco smoke exposure: No How often do you have a drink containing alcohol: 4 or more times a week Alcohol type: hard liquor How many standard drinks containing alcohol do you have on a typical day: 3 or 4 How often do you have six or more drinks on one occasion: Never AUDIT-C Alcohol total score: 5 Non-prescribed substance use: denies use Caffeine: Yes (soda daily) How often does anyone, including family, friends and others, physically hurt you: never How often does anyone, including family, friends and others, insult or talk down to you: never How often does anyone, including family, friends and others, threaten you with harm: never How often does anyone, including family, friends and others, scream or curse at you: never Little interest or pleasure in doing things: not at all Feeling down, depressed, or hopeless: not at all Are you using contraception or practicing any form of control: No service: No Meds Home Medications and Allergies Home Medications ?Medication ?Instructions ?Recorded ?Confirmed ?Type amlodipine 2.5 mg tablet 2.5 mg PO DAILY 02/07/24 02/07/24 History atenolol 100 mg tablet 100 mg PO DAILY 02/07/24 02/07/24 History cholecalciferol (vitamin D3) 25 25 mcg PO DAILY 02/07/24 02/07/24 History mcg (1,000 unit) capsule diazepam 5 mg tablet 2.5 mg PO DAILY PRN anxiety 02/07/24 02/07/24 History folic acid 1 mg tablet 1 mg PO DAILY 02/07/24 02/07/24 History omeprazole 20 mg capsule,delayed 20 mg PO DAILY 02/07/24 02/07/24 History release oxycodone-acetaminophen 5 mg-325 1 tab PO HS PRN pain 02/07/24 02/07/24 History mg tablet psyllium husk (with sugar) 3.4 1 tbsp PO DAILY 02/07/24 02/07/24 History gram/12 gram oral powder (Metamucil (with sugar)) rosuvastatin 10 mg tablet 10 mg PO DAILY 02/07/24 02/07/24 History thiamine HCl (vitamin B1) 100 mg 100 mg PO DAILY 02/07/24 02/07/24 History tablet Allergies Allergy/AdvReac Type Severity Reaction Status Date / Time lisinopril Allergy Mild Cough Verified 01/28/24 15:24 Exam Narrative Exam Narrative: Physical Exam GENERAL: ?vital signs reviewed, well developed and nourished, in no distress, drowsy, falls asleep in question, slurred speech HEENT: pupils pinpoint are equal round and mildly reactive to light, extraocular movements are grossly within normal limits and oral mucosa is moist. NECK: Supple without lymphadenopathy or thyromegaly according to nursing staff examination observation HEART: Regular rate and rhythm without any rubs, murmurs, or gallops. LUNGS: coarse lung sounds ABDOMEN: Observation from nurse assisted exam, abdomen appears soft, nontender, and nondistended with Positive bowel sounds noted. EXTREMITIES: Strength and sensation is observed to be grossly within normal limits in the upper and lower extremities.? No focal strength deficit is observed. SKIN:? Observed warm and dry with color normal Const Vital Signs, click to edit/add: Vital Signs - 24 hr 02/10/24 23:07 02/10/24 23:08 02/10/24 23:15 Temperature Pulse Rate 92 83 79 Pulse Rate [Pulse Oximeter] Respiratory Rate 16 Blood Pressure 135/65 Blood Pressure [Left Upper Arm] Pulse Oximetry 91 85 L 82 L Oxygen Delivery Method Oxygen Flow Rate 02/10/24 23:23 02/10/24 23:24 02/10/24 23:25 Temperature Pulse Rate 75 Pulse Rate [Pulse Oximeter] Respiratory Rate Blood Pressure 112/51 L Blood Pressure [Left Upper Arm] Pulse Oximetry 94 95 95 Oxygen Delivery Method Nasal Cannula Nasal Cannula Oxygen Flow Rate 1 1 02/10/24 23:25 02/10/24 23:30 02/10/24 23:31 Temperature Pulse Rate 72 74 78 Pulse Rate [Pulse Oximeter] Respiratory Rate Blood Pressure 116/63 Blood Pressure [Left Upper Arm] Pulse Oximetry 95 89 92 Oxygen Delivery Method Oxygen Flow Rate 02/10/24 23:32 02/10/24 23:33 02/10/24 23:37 Temperature 96.2 F L 95.9 F L Pulse Rate 75 Pulse Rate [Pulse Oximeter] 104 H Respiratory Rate 16 Blood Pressure Blood Pressure [Left Upper Arm] 162/80 H Pulse Oximetry 89 99 Oxygen Delivery Method Nasal Cannula Oxygen Flow Rate 02/10/24 23:45 02/11/24 00:00 02/11/24 00:02 Temperature 97.2 F L Pulse Rate 84 86 78 Pulse Rate [Pulse Oximeter] Respiratory Rate 16 Blood Pressure Blood Pressure [Left Upper Arm] Pulse Oximetry 94 Oxygen Delivery Method Oxygen Flow Rate 02/11/24 00:02 02/11/24 00:02 02/11/24 00:06 Temperature Pulse Rate 78 78 75 Pulse Rate [Pulse Oximeter] Respiratory Rate Blood Pressure Blood Pressure [Left Upper Arm] Pulse Oximetry 89 Oxygen Delivery Method Oxygen Flow Rate 02/11/24 00:15 02/11/24 00:16 02/11/24 00:17 Temperature Pulse Rate 75 76 83 Pulse Rate [Pulse Oximeter] Respiratory Rate Blood Pressure 97/59 L Blood Pressure [Left Upper Arm] Pulse Oximetry 79 L 93 Oxygen Delivery Method Oxygen Flow Rate 02/11/24 00:25 02/11/24 00:26 02/11/24 00:28 Temperature Pulse Rate Pulse Rate [Pulse Oximeter] Respiratory Rate 20 Blood Pressure 87/43 L 74/59 L Blood Pressure [Left Upper Arm] Pulse Oximetry Oxygen Delivery Method Oxygen Flow Rate 02/11/24 00:29 02/11/24 00:30 02/11/24 00:31 Temperature Pulse Rate 80 78 76 Pulse Rate [Pulse Oximeter] Respiratory Rate Blood Pressure 97/59 L 79/55 L Blood Pressure [Left Upper Arm] Pulse Oximetry 89 87 L 88 Oxygen Delivery Method Oxygen Flow Rate 02/11/24 00:45 02/11/24 00:46 02/11/24 00:47 Temperature Pulse Rate 75 76 75 Pulse Rate [Pulse Oximeter] Respiratory Rate Blood Pressure 87/50 L Blood Pressure [Left Upper Arm] Pulse Oximetry 93 93 92 Oxygen Delivery Method Oxygen Flow Rate 02/11/24 00:56 Temperature 97.0 F L Pulse Rate Pulse Rate [Pulse Oximeter] Respiratory Rate Blood Pressure Blood Pressure [Left Upper Arm] Pulse Oximetry Oxygen Delivery Method Oxygen Flow Rate Common normals: no apparent distress General appearance: cooperative, comfortable and lethargic Orientation/consciousness: Yes awake, Yes oriented to person, Yes oriented to place and Yes lethargic HENME Common normals: normocephalic Head and scalp: normal to inspection and normocephalic Mouth: oral and palatal mucosa normal Eye Common normals: PERRL Pupil: PERRL Neuro Sensorium/orientation: awake, oriented to person, oriented to place and lethargic Hospitalist - H&P: Result Labs Labs: Short CBC 02/10/24 Range/Units 22:45 WBC 13.64 H (4.50-11.00) K/uL Hgb 12.5 (12.0-16.0) gm/dL Hct 40.9 (33.0-51.0) % Plt Count 461 H (140-440) K/uL BMP 02/10/24 22:45 Sodium 139 Potassium 4.2 Chloride 104 Carbon Dioxide 22 BUN 10 Creatinine 0.8 Glucose 158 H Calcium 9.6 Cardiac Enzymes 02/10/24 Range/Units 22:45 Total Creatine Kinase 48 (41-117) U/L Troponin I 0.02 (0.01-0.04) ng/mL Liver Function 02/10/24 Range/Units 22:45 Total Bilirubin 0.3 (0.1-1.5) mg/dL Direct Bilirubin 0.2 (0.0-0.5) mg/dL AST 23 (12-35) U/L ALT 15 (4-35) U/L Alkaline Phosphatase 73 (40-150) U/L Albumin 4.3 (3.3-5.0) g/dL Urine 02/10/24 Range/Units 23:55 Urine Color Yellow (Yellow) Urine Appearance Clear (Clear) Urine pH 6.5 (5.0-8.5) Ur Specific [place] 1.020 (1.000-1.030) Urine Protein 1+ A (Negative) Urine Glucose (UA) Negative (Negative) Assessment and Plan Assessment and plan (1) Aspiration pneumonia: Status: Acute (2) Opioid overdose: Status: Acute (3) Acetaminophen toxicity: Status: Acute (4) Altered mental status: Status: Acute (5) Cognitive impairment: Problem comment: Initially some concern about cognitive impairment. Patient was able to describe her circumstances and give reasonably good history. She scored 24/[address] [place]. At this time appears to be able to manage her own affairs, medications and make her own decisions. Status: Acute (6) COPD (chronic obstructive pulmonary disease): Problem comment: Has not had formal diagnosis or evaluation for COPD but clinically appears to have COPD on this admission. Treat with inhaled bronchodilator and short course of prednisone. Status: Acute (7) Polypharmacy: Problem comment: Frail elderly lady with a history of alcohol use disorder taking both diazepam and oxycodone puts her at risk for falls Status: Acute (8) Weakness: Problem comment: Acute on chronic. 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 Status: Acute (12) Suicide attempt by drug ingestion: Status: Acute Plan This patient presents to hospital with suicide attempt. She states that she attempted to take her life by taking number of pills. She does not remember what she took but she does not know she emptied her oxycodone tablets and her Valium follows. She also took Tylenol and excessive amounts. She could not remember how much she took. Poison control was contacted and they recommended acetylcysteine protocol due to the elevated Tylenol level. Although the patient's liver enzymes are elevated, we do not know how much or when she consumed her Tylenol. Therefore the acetylcysteine 3 bag protocol over 20 hours has been ordered. I have been communicating with the pharmacy and nursing staff about this. Hypotension and lactic acidosis likely in the setting of multidrug overdose: Patient will be getting IV fluids. Lactic acid will be checked in the morning. Aspiration pneumonia: Patient has noted to have aspiration on CT scan patient has rales on exam. Mildly hypoxic. Will order and continue antibiotics for now. Given this patient's suicide attempt, I think that she should be considered a high risk patient. She has a previous suicide attempt in the past which gives me concerns. I have requested nursing staff to contact the provider if she threatens to leave, in order to get a hold. I have also instructed nursing staff to treat this patient is a high risk suicide attempt. Therefore they will provide a one-to-one observer. Telehealth Visit Today's History and Physical is provided via interactive telehealth by Dr. Fred Mcneal MD. Patient is located at [facility]. Provider is located at [facility]. Nursing staff assisted with the patient's examination. The visit being done today meets criteria for a telehealth visit and the patient or patient's parent and/or gaurdian is aware the visit is a telehealth visit. Camera Start Time 1:30 AM Camera End Time 2 AM Telehealth: Statement Statement Telehealth Visit: Today's History and Physical is provided via interactive telehealth by Fred Mcneal MD.? Patient is located at [facility].? Provider is located at [facility].? Nursing staff assisted with the patient's exam. The visit being done today meets criteria for a telehealth visit and the patient or patient?s parent/guardian is aware the visit is a telehealth visit.
[2024-02-11] MEDS: SODIUM CHLORIDE 0.9 % (FLUSH) 10 ML SYRINGE 5 ML IVF ×2 (02:41→10:00)
[2024-02-11 06:41] LABS: Lactate* 1.1 mmol/L (0.5-1.9)
--- NOTE | 2024-02-11 06:46 | PC.NURSE ---
End of shift : Pt arrived to the floor at 0120 from the ER. She has been alert but drowsy and oriented x4. While going through the admission questions, nurse asked patient what the last thing she remembered was and she responded [place] the [place] When nurse asked pt why she was at the park, she responded with ?to ?. Pt admitted to taking (from what she can remember) 20 tablets of oxycodone, 30 tablets of diazepam and an unknown amount of Tylenol and/or Ibuprofen. She admitted to washing it down with hard alcohol in hopes ?that it would kill me?. Patient?s breath smells heavily of alcohol, she is lethargic, eyes are glossy and pupils are pinpoint. Expiratory wheezing is audibly heard as well as bilateral rhonchi in bases. Pt has deep chest congestion & it?s heard as a rattle when she breathes. She has an intermittent, weak cough that does not bring the mucous up high enough to be expectorated. D/t Tylenol toxicity (level @ 62 on admission); she?s been started on the IV Acetylcysteine protocol. She?s been given x1 dose IV Narcan for opiate reversal. Maintenance NaCl infusing @ 150 mL/hr. Pt is Ax2 up to BSC; she?s voided once. Suicide precautions in place, pt is in paper scrubs & with 1:1 continuous observation. TELE reads NSR with BBB. Pt has been asleep in between cares & easily awakes to voice & touch. She was placed on 2L NC for mild hypoxia (85% on RA). Pt?s speech is slurred & garbled baseline with dx of chronic ataxia. ?
[2024-02-11 07:39] LABS: Albumin* 3.4 g/dL (3.3-5.0); Chloride* 104 mmol/L (96-114); Potassium* 3.4 mmol/L (3.6-5.1); Sodium* 138 mmol/L (135-149)
[2024-02-11 07:41] LABS: Anion Gap 8 mEq/L (7-15); Bilirubin Total* 0.4 mg/dL (0.1-1.5); Carbon Dioxide* 26 mmol/L (20-32); Creatinine* 0.6 mg/dL (0.5-1.5); Est. Creatinine Clearance* 41.33; Estimated Glomerular Filt Rate 93 ml/min
[2024-02-11 07:42] LABS: Alanine Aminotransferase* 12 U/L (4-35); Alkaline Phosphatase* 23 U/L (40-150); Aspartate Amino Transferase* 19 U/L (12-35); Blood Urea Nitrogen* 9 mg/dL (7-30); Calcium* 8.1 mg/dL (8.4-10.6); Glucose* 154 mg/dL (60-115); Total Protein* 6.1 g/dL (6.0-8.3)
[2024-02-11 08:35] LABS: HCO3 VBG 25 mmol/L (21-28); PCO2 VBG 50 mmHG (40-50); PO2 VBG 70.4 mmHG (25-47); pH VBG 7.316 (7.32-7.43)
[2024-02-11] MEDS: cefTRIAXone 2 GM in 0.9 % SODIUM CHLORIDE Mini-bag 100 ML IVPB (09:15)
[2024-02-11] MEDS: NALOXONE 1 MG/ML SYRINGE IV (09:45)
--- NOTE | 2024-02-11 10:42 | REH.OT ---
OT order received. Pt. not appropriate for OT eval today per MD. Will evaluate when pt. is medically appropriate.
--- NOTE | 2024-02-11 10:51 | NUTR.NU ---
Nutrition screen complete related to clinical ob for skin risk: Patient admitted related to overdose and suicide attempt. Per RN notes, no pressure ulcer. Patient is on a regular diet. No intakes recorded yet. She is being treated for aspiration pneumonia. Weight is 159.7#, height 64 with BMI of 27.4 kg/m2. Per weight history, patient has not lost weight. Plan to monitor diet tolerance and intake at this time and follow up further as needed.
[2024-02-11 11:04] LABS: Lab Add On Test New Spec Needed
--- NOTE | 2024-02-11 11:09 | PC.SOCIAL ---
Social work: Called [facility] and spoke with pt's nurse, Tia Weir, who confirmed [facility] does not have an Advance Directive on file for this patient. They confirmed they have pt's emergency contact in their system as her daughter, Margo [phone].
[2024-02-11] MEDS: MAGNESIUM IV 2 GM/50 ML PIGGYBACK IVPB (11:43)
[2024-02-11] MEDS: 0.9 % SODIUM CHLORIDE 500 ML 500 ML IV (12:14)
--- NOTE | 2024-02-11 13:04 | P.DS_ITS ---
DS: Providers Provider Date Seen: 02/11/24 Date of admission: 02/11/24 01:56 Primary care physician: Sherif Orosco MD Admitting Clinician: Fred Mcneal MD Consults: 02/11/24 02:05 Consult to Occupational Therapy [CONS] Routine Comment: Reason(s) for OT Consult:: Evaluate and Treat Any Restrictions?:: No Restrictions Consult to Physical Therapy [CONS] Routine Comment: Reason(s) for PT Consult:: Balance Assessment Any Restrictions?:: No Restrictions Consult to [facility] [place] [CONS] Routine Comment: Reason for Consult:: Suicide Risk Attending Physician on discharge: Ana Matthews [facility], [place] Hospitalist Date of Discharge: 02/11/24 DS: Diagnosis Discharge Diagnosis (1) Suicide attempt by drug ingestion: Status: Acute Problem details: Tox screen positive for opioids (oxycodone bottles in possession), benzodiazepines (patient admits to [facility]), Tylenol (acetaminophen level 62 on admission), ETOH level 0.08 During brief moments of lucidity, patient verbalizes this was a suicidal attempt and she had no intention of being alive in the hospital 1:1 Poison control has been contacted, assisting Transfer hold on discharge (2) Aspiration pneumonia: Status: Acute Problem details: Suspected in setting of suicide attempt, vomiting, obtunded CT chest shows right lower lobe consolidation with aspirated debris within the trachea, raising the possibility of aspiration pneumonia Leukocytosis with left shift, WBC 13.64 Need 1 dose IV Zosyn in the ED, started on IV ceftriaxone 2 g upon admission to the floor (3) Hypoxia: Status: Acute Problem details: In setting of obtundation, likely multifactorial including opioids/benzo overdose, COPD, aspiration pneumonia, undiagnosed sleep apnea Maintaining O2 saturations 88-92% with 2 L NC/mask RT for pulmonary support - recommending not to use BiPAP at this time given risk for further vomiting/aspiration DNR DNI status since 2022 according to signed paperwork. Daughter, Margo, confirms Narcan drip started, repositioning for optimal airway opening (4) Opioid overdose: Status: Acute Problem details: Obtunded, poor respiratory effort, hypoxia Most likely oxycodone as patient has had this in her possession Minimal response to Narcan 0.4 mg in ED, better response to 1 mg, poor response to repeated doses of p.r.n. 0.1 mg. Narcan drip started following discussion with [facility] milk route deliverer (5) Acetaminophen toxicity: Status: Acute Problem details: 62 on admission. Started on acetylcysteine drip - current bag should complete around midnight. Repeat level 34. Order repeat acetaminophen level along with liver panel and INR at 2200pm per poison Control (6) Altered mental status: Status: Acute Problem details: GCS 9 on arrival to ED. Remains obtunded, briefly alert and oriented following Narcan dosing. 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 Patient was brought to the ED [place] in a park with bottles and alcohol around her. During short episodes of lucidity, patient admits this is a suicide attempt. Tells me she had no intention of being alive. Course of care and details as noted above. Patient was admitted overnight but remains quite obtunded this morning, lifting her head to name but not responding. Airway is compromised with poor positioning in setting of obtundation. She is DNR/DNI per paperwork reviewed and signed in 2022. VBG mildly acidotic, CO2 40-50. Saturations 82-92% on 2 L per NC. Receiving IV ceftriaxone for aspiration pneumonia. Quite congested with significant upper airway noise. Able to expectorate when alert. End-tidal CO2 monitor mid 30s following Narcan dosing. RT consulted. No recommendation for BiPAP at that time given increased risk for vomiting and further aspiration. Patient is in need of further critical care not available here at this facility. Intermittently hypotensive. Unable to protect her airway in this setting without intubation. Discuss[facility] with Dr[facility] Raul Hayes, [facility], accepting for transfer. Initiating Narcan drip. Transfer hold. Of note, patient was also hospitalized here 02/07/2024-02/10/2024 for altered mental status in what was reported to be accidental intake of too much oxycodone. Patient does admit during this hospital stay that that incident was also a suicide attempt. In reviewing H&P from 02/07/24, it is documented that patient's daughter, Cathy, is the emergency contact, POA by proxy. I did call her this morning and confirmed this with her. Additionally confirmed DNR/DNI status. Paperwork from 2022 has been reviewed. Remainder of chronic medical comorbidities were monitored and managed with home medications. Status at Discharge Cognitive/behavioral status at discharge: Critical Time Spent with Patient Time attestation: Total time spent providing and/or coordinating discharge services: Time spent: Greater than 30 minutes Exam Narrative: Exam Narrative: PHYSICAL EXAM General: Obtunded, responsive and oriented following Narcan dosing only Cardiovascular: RRR Pulmonary: Dyspneic, course, unable to protect airway Neurological: Obtunded, responsive and oriented following Narcan dosing only Skin: Warm, dry. Const: Vital Signs, click to edit/add: Vital Signs - 24 hr 02/10/24 23:07 02/10/24 23:08 02/10/24 23:15 Temperature Pulse Rate 92 83 79 Pulse Rate [Pulse Oximeter] Respiratory Rate 16 Blood Pressure 135/65 Blood Pressure [Le ft Upper Arm] Blood Pressure [Ri ght Arm] Pulse Oximetry 91 85 L 82 L Oxygen Delivery Me thod Oxygen Flow Rate 02/10/24 23:23 02/10/24 23:24 02/10/24 23:25 Temperature Pulse Rate 75 Pulse Rate [Pulse Oximeter] Respiratory Rate Blood Pressure 112/51 L Blood Pressure [Le ft Upper Arm] Blood Pressure [Ri ght Arm] Pulse Oximetry 94 95 95 Oxygen Delivery Me thod Nasal Cannula Nasal Cannula Oxygen Flow Rate 1 1 02/10/24 23:25 02/10/24 23:30 02/10/24 23:31 Temperature Pulse Rate 72 74 78 Pulse Rate [Pulse Oximeter] Respiratory Rate Blood Pressure 116/63 Blood Pressure [Le ft Upper Arm] Blood Pressure [Ri ght Arm] Pulse Oximetry 95 89 92 Oxygen Delivery Me thod Oxygen Flow Rate 02/10/24 23:32 02/10/24 23:33 02/10/24 23:37 Temperature 96.2 F L 95.9 F L Pulse Rate 75 Pulse Rate [Pulse Oximeter] 104 H Respiratory Rate 16 Blood Pressure Blood Pressure [Le ft Upper Arm] 162/80 H Blood Pressure [Ri ght Arm] Pulse Oximetry 89 99 Oxygen Delivery Me thod Nasal Cannula Oxygen Flow Rate 02/10/24 23:45 02/11/24 00:00 02/11/24 00:02 Temperature 97.2 F L Pulse Rate 84 86 78 Pulse Rate [Pulse Oximeter] Respiratory Rate 16 Blood Pressure Blood Pressure [Le ft Upper Arm] Blood Pressure [Ri ght Arm] Pulse Oximetry 94 Oxygen Delivery Me thod Oxygen Flow Rate 02/11/24 00:02 02/11/24 00:02 02/11/24 00:06 Temperature Pulse Rate 78 78 75 Pulse Rate [Pulse Oximeter] Respiratory Rate Blood Pressure Blood Pressure [Le ft Upper Arm] Blood Pressure [Ri ght Arm] Pulse Oximetry 89 Oxygen Delivery Me thod Oxygen Flow Rate 02/11/24 00:15 02/11/24 00:16 02/11/24 00:17 Temperature Pulse Rate 75 76 83 Pulse Rate [Pulse Oximeter] Respiratory Rate Blood Pressure 97/59 L Blood Pressure [Le ft Upper Arm] Blood Pressure [Ri ght Arm] Pulse Oximetry 79 L 93 Oxygen Delivery Me thod Oxygen Flow Rate 02/11/24 00:25 02/11/24 00:26 02/11/24 00:28 Temperature Pulse Rate Pulse Rate [Pulse Oximeter] Respiratory Rate 20 Blood Pressure 87/43 L 74/59 L Blood Pressure [Le ft Upper Arm] Blood Pressure [Ri ght Arm] Pulse Oximetry Oxygen Delivery Me thod Oxygen Flow Rate 02/11/24 00:29 02/11/24 00:30 02/11/24 00:31 Temperature Pulse Rate 80 78 76 Pulse Rate [Pulse Oximeter] Respiratory Rate Blood Pressure 97/59 L 79/55 L Blood Pressure [Le ft Upper Arm] Blood Pressure [Ri ght Arm] Pulse Oximetry 89 87 L 88 Oxygen Delivery Me thod Oxygen Flow Rate 02/11/24 00:45 02/11/24 00:46 02/11/24 00:47 Temperature Pulse Rate 75 76 75 Pulse Rate [Pulse Oximeter] Respiratory Rate Blood Pressure 87/50 L Blood Pressure [Le ft Upper Arm] Blood Pressure [Ri ght Arm] Pulse Oximetry 93 93 92 Oxygen Delivery Me thod Oxygen Flow Rate 02/11/24 00:56 02/11/24 01:20 02/11/24 01:20 Temperature 97.0 F L 96.7 F L Pulse Rate Pulse Rate [Pulse Oximeter] 84 Respiratory Rate 16 16 Blood Pressure Blood Pressure [Le ft Upper Arm] Blood Pressure [Ri ght Arm] 117/80 Pulse Oximetry 92 92 Oxygen Delivery Me thod Nasal Cannula Nasal Cannula Oxygen Flow Rate 4 4 02/11/24 02:35 02/11/24 03:21 02/11/24 05:45 Temperature 96.7 F L Pulse Rate 95 Pulse Rate [Pulse Oximeter] 94 Respiratory Rate 14 14 Blood Pressure Blood Pressure [Le ft Upper Arm] Blood Pressure [Ri ght Arm] 117/80 Pulse Oximetry 87 L 91 Oxygen Delivery Me thod Nasal Cannula Nasal Cannula Oxygen Flow Rate 1 2 02/11/24 07:56 02/11/24 11:30 02/11/24 12:00 Temperature 98 F Pulse Rate Pulse Rate [Pulse Oximeter] 93 90 98 Respiratory Rate 16 12 14 Blood Pressure Blood Pressure [Le ft Upper Arm] Blood Pressure [Ri ght Arm] 123/86 97/71 88/61 L Pulse Oximetry 89 89 90 Oxygen Delivery Me thod Room Air Nasal Cannula Nasal Cannula Oxygen Flow Rate 2 2 02/11/24 12:11 Temperature Pulse Rate Pulse Rate [Pulse Oximeter] Respiratory Rate Blood Pressure Blood Pressure [Le ft Upper Arm] Blood Pressure [Ri ght Arm] 118/67 Pulse Oximetry Oxygen Delivery Me thod Oxygen Flow Rate DS: Data Data Completed and Pending Labs on day of discharge: Labs from last 24 hours 02/11/24 02/11/24 02/11/24 11:27 11:02 08:30 WBC RBC Hgb Hct MCV MCH MCHC RDW Coeff of [place] Plt Count Neut % (Auto) Lymph % (Auto) [place] % (Auto) Eos % (Auto) Baso % (Auto) Neut # (Auto) Lymph # (Auto) [place] # (Auto) Eos # (Auto) Baso # (Auto) Abs Immat Gran (auto) Imm/Tot Granulo (auto) INR VBG pH 7.316 L VBG pCO2 50 VBG pO2 70.4 H VBG HCO3 25 Sodium Potassium Chloride Carbon Dioxide Anion Gap BUN Creatinine Estimated Creat Clear Estimated GFR Glucose Lactate Calcium Magnesium Total Bilirubin Direct Bilirubin AST ALT Alkaline Phosphatase Ammonia 28.0 Total Creatine Kinase Troponin I C-Reactive Protein NT-Pro-B Natriuret Pep Total Protein Albumin Lipase Urine Color Urine Appearance Urine pH Ur Specific [place] Urine Protein Urine Glucose (UA) Urine Ketones Urine Blood Urine Nitrite Urine Bilirubin Urine Urobilinogen Ur Leukocyte Esterase Urine RBC Urine WBC Ur Squamous Epith Cells Urine Bacteria Salicylates Urine Opiates Screen Ur Oxycodone Screen Urine Methadone Screen Acetaminophen Ur Barbiturates Screen U Tricyclic Antidepress Ur Phencyclidine Scrn Ur Amphetamines Screen U Methamphetamines Scrn U Benzodiazepines Scrn Urine Cocaine Screen U Marijuana (THC) Screen Ur Drug Screen Comment Ethyl Alcohol SARS-CoV-2 (PCR) Influenza Type A (PCR) Influenza Type B (PCR) Lab Acknowledgement New Spec Needed POC Troponin I 02/11/24 02/11/24 02/11/24 05:57 05:57 05:57 WBC RBC Hgb Hct MCV MCH MCHC RDW Coeff of [place] Plt Count Neut % (Auto) Lymph % (Auto) [place] % (Auto) Eos % (Auto) Baso % (Auto) Neut # (Auto) Lymph # (Auto) [place] # (Auto) Eos # (Auto) Baso # (Auto) Abs Immat Gran (auto) Imm/Tot Granulo (auto) INR VBG pH VBG pCO2 VBG pO2 VBG HCO3 Sodium Potassium Chloride Carbon Dioxide Anion Gap BUN Creatinine Estimated Creat Clear Estimated GFR Glucose Lactate Calcium Magnesium Total Bilirubin Direct Bilirubin AST ALT Alkaline Phosphatase Cancelled Ammonia Total Creatine Kinase Troponin I C-Reactive Protein NT-Pro-B Natriuret Pep Total Protein Cancelled 6.1 Albumin Cancelled 3.4 Lipase Urine Color Urine Appearance Urine pH Ur Specific [place] Urine Protein Urine Glucose (UA) Urine Ketones Urine Blood Urine Nitrite Urine Bilirubin Urine Urobilinogen Ur Leukocyte Esterase Urine RBC Urine WBC Ur Squamous Epith Cells Urine Bacteria Salicylates Urine Opiates Screen Ur Oxycodone Screen Urine Methadone Screen Acetaminophen 34.0 H Ur Barbiturates Screen U Tricyclic Antidepress Ur Phencyclidine Scrn Ur Amphetamines Screen U Methamphetamines Scrn U Benzodiazepines Scrn Urine Cocaine Screen U Marijuana (THC) Screen Ur Drug Screen Comment Ethyl Alcohol SARS-CoV-2 (PCR) Influenza Type A (PCR) Influenza Type B (PCR) Lab Acknowledgement POC Troponin I 02/11/24 02/11/24 02/11/24 05:57 05:57 05:57 WBC RBC Hgb Hct MCV MCH MCHC RDW Coeff of [place] Plt Count Neut % (Auto) Lymph % (Auto) [place] % (Auto) Eos % (Auto) Baso % (Auto) Neut # (Auto) Lymph # (Auto) [place] # (Auto) Eos # (Auto) Baso # (Auto) Abs Immat Gran (auto) Imm/Tot Granulo (auto) INR VBG pH VBG pCO2 VBG pO2 VBG HCO3 Sodium Potassium Chloride Carbon Dioxide Anion Gap BUN Creatinine Estimated Creat Clear Estimated GFR Glucose Lactate Calcium Magnesium Total Bilirubin Cancelled Direct Bilirubin AST Cancelled 19 ALT Cancelled 12 Alkaline Phosphatase 23 L Ammonia Total Creatine Kinase Troponin I C-Reactive Protein NT-Pro-B Natriuret Pep Total Protein Albumin Lipase Urine Color Urine Appearance Urine pH Ur Specific [place] Urine Protein Urine Glucose (UA) Urine Ketones Urine Blood Urine Nitrite Urine Bilirubin Urine Urobilinogen Ur Leukocyte Esterase Urine RBC Urine WBC Ur Squamous Epith Cells Urine Bacteria Salicylates Urine Opiates Screen Ur Oxycodone Screen Urine Methadone Screen Acetaminophen Ur Barbiturates Screen U Tricyclic Antidepress Ur Phencyclidine Scrn Ur Amphetamines Screen U Methamphetamines Scrn U Benzodiazepines Scrn Urine Cocaine Screen U Marijuana (THC) Screen Ur Drug Screen Comment Ethyl Alcohol SARS-CoV-2 (PCR) Influenza Type A (PCR) Influenza Type B (PCR) Lab Acknowledgement POC Troponin I 02/11/24 02/11/24 02/11/24 05:57 05:57 05:57 WBC RBC Hgb Hct MCV MCH MCHC RDW Coeff of [place] Plt Count Neut % (Auto) Lymph % (Auto) [place] % (Auto) Eos % (Auto) Baso % (Auto) Neut # (Auto) Lymph # (Auto) [place] # (Auto) Eos # (Auto) Baso # (Auto) Abs Immat Gran (auto) Imm/Tot Granulo (auto) INR VBG pH VBG pCO2 VBG pO2 VBG HCO3 Sodium Potassium Chloride Carbon Dioxide Anion Gap BUN Creatinine Estimated Creat Clear Estimated GFR Cancelled Glucose Cancelled 154 H Lactate 1.1 Calcium Cancelled 8.1 L Magnesium Total Bilirubin 0.4 Direct Bilirubin AST ALT Alkaline Phosphatase Ammonia Total Creatine Kinase Troponin I C-Reactive Protein NT-Pro-B Natriuret Pep Total Protein Albumin Lipase Urine Color Urine Appearance Urine pH Ur Specific [place] Urine Protein Urine Glucose (UA) Urine Ketones Urine Blood Urine Nitrite Urine Bilirubin Urine Urobilinogen Ur Leukocyte Esterase Urine RBC Urine WBC Ur Squamous Epith Cells Urine Bacteria Salicylates Urine Opiates Screen Ur Oxycodone Screen Urine Methadone Screen Acetaminophen Ur Barbiturates Screen U Tricyclic Antidepress Ur Phencyclidine Scrn Ur Amphetamines Screen U Methamphetamines Scrn U Benzodiazepines Scrn Urine Cocaine Screen U Marijuana (THC) Screen Ur Drug Screen Comment Ethyl Alcohol SARS-CoV-2 (PCR) Influenza Type A (PCR) Influenza Type B (PCR) Lab Acknowledgement POC Troponin I 02/11/24 02/11/24 02/11/24 05:57 05:57 05:57 WBC RBC Hgb Hct MCV MCH MCHC RDW Coeff of [place] Plt Count Neut % (Auto) Lymph % (Auto) [place] % (Auto) Eos % (Auto) Baso % (Auto) Neut # (Auto) Lymph # (Auto) [place] # (Auto) Eos # (Auto) Baso # (Auto) Abs Immat Gran (auto) Imm/Tot Granulo (auto) INR VBG pH VBG pCO2 VBG pO2 VBG HCO3 Sodium Potassium Chloride Carbon Dioxide Anion Gap BUN Cancelled Creatinine Cancelled 0.6 Estimated Creat Clear Cancelled 41.33 Estimated GFR 93 Glucose Lactate Calcium Magnesium Total Bilirubin Direct Bilirubin AST ALT Alkaline Phosphatase Ammonia Total Creatine Kinase Troponin I C-Reactive Protein NT-Pro-B Natriuret Pep Total Protein Albumin Lipase Urine Color Urine Appearance Urine pH Ur Specific [place] Urine Protein Urine Glucose (UA) Urine Ketones Urine Blood Urine Nitrite Urine Bilirubin Urine Urobilinogen Ur Leukocyte Esterase Urine RBC Urine WBC Ur Squamous Epith Cells Urine Bacteria Salicylates Urine Opiates Screen Ur Oxycodone Screen Urine Methadone Screen Acetaminophen Ur Barbiturates Screen U Tricyclic Antidepress Ur Phencyclidine Scrn Ur Amphetamines Screen U Methamphetamines Scrn U Benzodiazepines Scrn Urine Cocaine Screen U Marijuana (THC) Screen Ur Drug Screen Comment Ethyl Alcohol SARS-CoV-2 (PCR) Influenza Type A (PCR) Influenza Type B (PCR) Lab Acknowledgement POC Troponin I 02/11/24 02/11/24 02/11/24 05:57 05:57 05:57 WBC RBC Hgb Hct MCV MCH MCHC RDW Coeff of [place] Plt Count Neut % (Auto) Lymph % (Auto) [place] % (Auto) Eos % (Auto) Baso % (Auto) Neut # (Auto) Lymph # (Auto) [place] # (Auto) Eos # (Auto) Baso # (Auto) Abs Immat Gran (auto) Imm/Tot Granulo (auto) INR VBG pH VBG pCO2 VBG pO2 VBG HCO3 Sodium Potassium Chloride Cancelled Carbon Dioxide Cancelled 26 Anion Gap Cancelled 8 BUN 9 Creatinine Estimated Creat Clear Estimated GFR Glucose Lactate Calcium Magnesium Total Bilirubin Direct Bilirubin AST ALT Alkaline Phosphatase Ammonia Total Creatine Kinase Troponin I C-Reactive Protein NT-Pro-B Natriuret Pep Total Protein Albumin Lipase Urine Color Urine Appearance Urine pH Ur Specific [place] Urine Protein Urine Glucose (UA) Urine Ketones Urine Blood Urine Nitrite Urine Bilirubin Urine Urobilinogen Ur Leukocyte Esterase Urine RBC Urine WBC Ur Squamous Epith Cells Urine Bacteria Salicylates Urine Opiates Screen Ur Oxycodone Screen Urine Methadone Screen Acetaminophen Ur Barbiturates Screen U Tricyclic Antidepress Ur Phencyclidine Scrn Ur Amphetamines Screen U Methamphetamines Scrn U Benzodiazepines Scrn Urine Cocaine Screen U Marijuana (THC) Screen Ur Drug Screen Comment Ethyl Alcohol SARS-CoV-2 (PCR) Influenza Type A (PCR) Influenza Type B (PCR) Lab Acknowledgement POC Troponin I 02/11/24 02/11/24 02/11/24 05:57 05:57 05:57 WBC RBC Hgb Hct MCV MCH MCHC RDW Coeff of [place] Plt Count Neut % (Auto) Lymph % (Auto) [place] % (Auto) Eos % (Auto) Baso % (Auto) Neut # (Auto) Lymph # (Auto) [place] # (Auto) Eos # (Auto) Baso # (Auto) Abs Immat Gran (auto) Imm/Tot Granulo (auto) INR VBG pH VBG pCO2 VBG pO2 VBG HCO3 Sodium Cancelled 138 Potassium Cancelled 3.4 L Chloride 104 Carbon Dioxide Anion Gap BUN Creatinine Estimated Creat Clear Estimated GFR Glucose Lactate Calcium Magnesium Total Bilirubin Direct Bilirubin AST ALT Alkaline Phosphatase Ammonia Total Creatine Kinase Troponin I C-Reactive Protein NT-Pro-B Natriuret Pep Total Protein Albumin Lipase Urine Color Urine Appearance Urine pH Ur Specific [place] Urine Protein Urine Glucose (UA) Urine Ketones Urine Blood Urine Nitrite Urine Bilirubin Urine Urobilinogen Ur Leukocyte Esterase Urine RBC Urine WBC Ur Squamous Epith Cells Urine Bacteria Salicylates Urine Opiates Screen Ur Oxycodone Screen Urine Methadone Screen Acetaminophen Ur Barbiturates Screen U Tricyclic Antidepress Ur Phencyclidine Scrn Ur Amphetamines Screen U Methamphetamines Scrn U Benzodiazepines Scrn Urine Cocaine Screen U Marijuana (THC) Screen Ur Drug Screen Comment Ethyl Alcohol SARS-CoV-2 (PCR) Influenza Type A (PCR) Influenza Type B (PCR) Lab Acknowledgement POC Troponin I 02/10/24 02/10/24 02/10/24 23:55 22:45 22:37 WBC 13.64 H RBC 4.77 Hgb 12.5 Hct 40.9 MCV 86 MCH 26 MCHC 31 L RDW Coeff of Santos 18.5 H Plt Count 461 H Neut % (Auto) 70.3 Lymph % (Auto) 17.2 L [place] % (Auto) 8.9 Eos % (Auto) 2.1 Baso % (Auto) 0.5 Neut # (Auto) 9.60 H Lymph # (Auto) 2.30 [place] # (Auto) 1.20 H Eos # (Auto) 0.30 Baso # (Auto) 0.10 Abs Immat Gran (auto) 0.10 Imm/Tot Granulo (auto) 1.0 INR 1.02 VBG pH 7.295 L VBG pCO2 46 VBG pO2 36.3 VBG HCO3 23 Sodium 139 Potassium 4.2 Chloride 104 Carbon Dioxide 22 Anion Gap 13 BUN 10 Creatinine 0.8 Estimated Creat Clear Estimated GFR 76 Glucose 158 H Lactate 4.1 H* Calcium 9.6 Magnesium 2.0 Total Bilirubin 0.3 Direct Bilirubin 0.2 AST 23 ALT 15 Alkaline Phosphatase 73 Ammonia Total Creatine Kinase 48 Troponin I 0.02 C-Reactive Protein 1.9 H NT-Pro-B Natriuret Pep 152 Total Protein 7.6 Albumin 4.3 Lipase 61 Urine Color Yellow Urine Appearance Clear Urine pH 6.5 Ur Specific [place] 1.020 Urine Protein 1+ A Urine Glucose (UA) Negative Urine Ketones Negative Urine Blood Negative Urine Nitrite Negative Urine Bilirubin Negative Urine Urobilinogen 0.2 Ur Leukocyte Esterase Negative Urine RBC 0-2 Urine WBC 0-2 Ur Squamous Epith Cells Few Urine Bacteria Few A Salicylates 1.4 Urine Opiates Screen POSITIVE A Ur Oxycodone Screen Negative Urine Methadone Screen Negative Acetaminophen 62.0 H Ur Barbiturates Screen Negative U Tricyclic Antidepress Negative Ur Phencyclidine Scrn Negative Ur Amphetamines Screen Negative U Methamphetamines Scrn Negative U Benzodiazepines Scrn POSITIVE A Urine Cocaine Screen Negative U Marijuana (THC) Screen Negative Ur Drug Screen Comment See Note Ethyl Alcohol 0.08 H SARS-CoV-2 (PCR) Negative SARS-CoV-2 Influenza Type A (PCR) Negative PCR FLU A Influenza Type B (PCR) Negative PCR FLU B Lab Acknowledgement POC Troponin I 0.02 Preliminary micro results at discharge 02/10/24 23:55 Urine Culture - Preliminary Urine,Clean Catch Culture in Progress Imaging CT scan - head: Attestation: I have reviewed the pertinent imaging results. Radiologist's impression: No loss of dotson-white differentiation to suggest recent territorial infarct. No intracranial hemorrhage, abnormal extra-axial fluid collection, hydrocephalus or midline shift. The ventricles and cerebral sulci are prominent caliber, compatible mild generalized parenchymal volume loss. There is patchy ill-defined hypoattenuation of the periventricular white matter diffusely, consistent with chronic microvascular ischemic changes.. The basal cisterns are patent. The paranasal sinuses and mastoid air cells remain clear. Status post bilateral lens removal. The orbits and calvarium are unremarkable. The cerebellar tonsils are normal position. IMPRESSION: 1. No acute intracranial findings. 2. Mild generalized parenchymal volume loss with chronic microvascular ischemic changes. Stable examination. CT chest: Attestation: I have reviewed the pertinent imaging results. Radiologist's impression: Lower neck: The visualized thyroid is unremarkable. Cardiovascular: Heart size is normal. Thoracic aorta and pulmonary artery are normal in caliber. Mild atherosclerotic calcifications of the aortic arch. Dense coronary arterial calcifications. Mediastinum and lymph nodes: No pathologic mediastinal or hilar lymphadenopathy by size criteria. Lungs: Right lower lobar consolidation. Dependent atelectasis. Linear bandlike opacification of the lung bases bilaterally, likely subsegmental atelectasis and/or scarring. Mild pulmonary emphysema. 5 mm nodule in the right lower lobe (5:41) 6 mm right middle lobe nodule abutting the major fissure (5:47). Airways: Aspirated debris within the trachea and left mainstem bronchus. Mild diffuse peribronchial wall thickening. Pleura: No pleural effusions or pneumothorax Chest wall: Unremarkable. Bones: No acute osseous abnormalities. Mild degenerative changes of the thoracic spine. Upper abdomen: No acute findings in the visualized upper abdomen. IMPRESSION: 1. No acute displaced rib fractures, pleural effusions or pneumothorax. 2. Right lower lobe consolidation with aspirated debris within the trachea, raising the possibility of aspiration pneumonia. 3. Scattered pulmonary nodules measuring up to 6 mm in the right lower lobe. Recommend follow-up CT in 3-6 months to assess stability or resolution, per Fleischner society guidelines. 4. Dense coronary arterial calcifications. Advise correlation with ASCVD evaluation. CT C-spine: Attestation: I have reviewed the pertinent imaging results. Radiologist's impression: Nonspecific straightening of the normal cervical lordosis. No craniocervical dissociation. The vertebral body heights are maintained. No acute fractures or traumatic subluxation. The odontoid process is intact. Mild multilevel degenerative disc disease throughout cervical spine. There are small central disc protrusions, for example at C3-4 resulting in varying levels of mild canal stenosis. Mild multilevel uncovertebral facet arthropathy without high-grade neural foraminal stenosis at any cervical spine level. No large abnormal epidural collections identified. No significant prevertebral soft tissue edema. The visualized lung apices are clear. The thyroid gland is unremarkable. IMPRESSION: 1. No acute fracture or traumatic subluxation of the cervical spine. 2. Multilevel cervical spondylosis. Discharge Plan Discharge Disposition: [facility] Discharge Location: [facility] Date of Admission: 02/11/24 01:56 Attending Provider on Discharge: Ana Matthews Primary Care Provider: Sherif Orosco Condition: Critical Discharge Orders: Transfer of Care to Other Hospital (ORDER); Ordered 02/11/24 Ordered By: Ana Matthews Additional Instructions: DNR/DNI Discharge Comments: Started on narcan drip. Continued acetylcysteine drip. Hypoxic Oxygen: Yes Oxygen Delivery Method: Simple Mask Oxygen Flow Rate: 2L Urinary Catheter: No Drips/Lines: IV, acetylcysteine Services not available here: Critical care
[2024-02-11] MEDS: SODIUM CHLORIDE 0.9% IV (13:05)
[2024-02-11] MEDS: NALOXONE IV (13:05)
--- NOTE | 2024-02-11 13:09 | RESP.RT ---
VBG reviewed with a metabolic acidosis. Patient is currently SATing 93% on 2L NC and and end tidal CO2 of 41. Patient has MARYCHUY and will desat during apnic periods. We will continue to reposition and tolerate MARYCHUY drop in SATs as patient quickly recovers back into the 90s when awake or stimulated. Patient is an aspiration risk and not a candidate for CPAP or BiPAP.
[2024-02-11] MEDS: 0.9 % SODIUM CHLORIDE 1000 ml 1,000 ML 100 ML IV (13:11)
--- NOTE | 2024-02-11 15:23 | PC.NURSE ---
shift note: pt sedated but aroused momentarily to shaking & name. pt vomited x2 60cc dk brown returns. Pt had large brownish thick phlegm. Report given to Gerald NULL at [facility] via phone prior to pt tranport. cont. vss q15 min with sats on capnography. Pt monitored 1:1 continuously. IV x3 patent. pt incont x2 and voided x2 250cc each void.
== END 2024-02-11 14:00 | disposition short-term general hospital (02) | DRG 812 ==
LOC: ED 02-11 00:20 → MEDSURG 02-11 01:10
PROVIDERS: Physician Assistant; Admitting Provider Student in an Organized Health Care Education/Training Program; Emergency Provider Family Medicine; PCP Family Medicine; Visit Provider Student in an Organized Health Care Education/Training Program
DX: T40.2X2A Poisoning by other opioids, intentional self-harm, initial encounter (principal); T39.1X2A Poisoning by 4-Aminophenol derivatives, intentional self-harm, initial encounter; T42.4X2A Poisoning by benzodiazepines, intentional self-harm, initial encounter; T51.0X2A Toxic effect of ethanol, intentional self-harm, initial encounter; Y90.4 Blood alcohol level of 80-99 mg/100 ml; J69.0 Pneumonitis due to inhalation of food and vomit; R09.02 Hypoxemia; F10.229 Alcohol dependence with intoxication, unspecified; F11.20 Opioid dependence, uncomplicated; R54 Age-related physical debility; R40.2421 Glasgow coma scale score 9-12, in the field [EMT or ambulance]; G11.19 Other early-onset cerebellar ataxia; G47.33 Obstructive sleep apnea (adult) (pediatric); F17.210 Nicotine dependence, cigarettes, uncomplicated; J44.9 Chronic obstructive pulmonary disease, unspecified; K21.9 Gastro-esophageal reflux disease without esophagitis; Z79.899 Other long term (current) drug therapy; I10 Essential (primary) hypertension; I25.10 Atherosclerotic heart disease of native coronary artery without angina pectoris; G89.29 Other chronic pain
CPT/HCPCS: 36415; 70450; 71250; 72125; 80048; 80053; 80076; 80143; 80179; 80306; 81001; 82077; 82140; 82550; 82803; 83605; 83690; 83735; 83880; 84484; 85025; 85610; 86140; 87086; 87631; 93005; 94761; 99285; 99291; 99292; G0378; G0390; J0132; J0696; J2310; J2543; J3475; J7030; J7050; J7070

== ENCOUNTER 2024-02-11 13:55 | Outpatient (CLI) | payer BC, SELFPAY | END 2024-02-11 13:56 | disposition home or self-care (01) | LOC: AMB 02-16 04:18 | PROVIDERS: PCP Family Medicine; Visit Provider Emergency Medicine Emergency Medical Services | DX: R45.851 Suicidal ideations (principal) | CPT/HCPCS: A0425; A0427 ==